=== PATIENT | female | born 1995 | race Caucasian/White ===

== ENCOUNTER 2019-11-16 13:01 | Emergency (ER) | payer OTHER, SELFPAY ==
--- NOTE | 2019-11-16 13:12 | ED.URI ---
HPI - URI/Sore Throat General Chief Complaint: Upper Respiratory Infection Stated Complaint: cough fever vomiting Time Seen by Provider: 11/16/19 13:12 Source: patient and RN notes reviewed Mode of arrival: ambulatory Limitations: no limitations History of Present Illness MD elicited complaint: fever and cough Onset (ago): day(s) (4) Consistency: intermittent Severity: moderate Description of mucous: clear Able to tolerate fluids by mouth: Yes Exacerbating factors: nothing Relieving factors: nothing Associated symptoms: fever, chills, myalgias, rhinorrhea and vomiting Treatments prior to arrival: acetaminophen Related Data Home Medications Medication Instructions Recorded Confirmed No Home Medications 11/16/19 11/16/19 Allergies Allergy/AdvReac Type Severity Reaction Status Date / Time nitrofurantoin Allergy Severe Swelling Verified 04/17/19 07:02 NSAIDS (Non-Steroidal Allergy Severe PROLONGED/INCREASED Verified 04/17/19 07:02 Anti-Inflamma BLEEDING Review of Systems Constitutional: Constitutional: Reports as per HPI Eyes: Eyes: Reports no additional eye complaints ENT: Reports as per HPI Cardiovascular: Cardiovascular: Reports no additional cardiovascular complaints Gastrointestinal: Gastrointestinal: Reports no additional gastrointestinal complaints Musculoskeletal: Musculoskeletal: Reports no additional musculoskeletal complaints Hematologic/Lymphatic: Hematologic/Lymphatic: Reports no additional hematologic/lymphatic complaints Allergic/Immunologic: Allergic/Immunologic: Reports no additional allergic/immunologic complaints FORMERLY [facility], [facility] Past Medical History Medical History (Updated 11/16/19 @ 13:37 by Rafal Smith MD) Endometriosis Surgical History Surgical History (Updated 11/16/19 @ 13:17 by Rafal Smith MD) S/P laparoscopic procedure Social History Social History (Updated 11/16/19 @ 13:17 by Rafal Smith MD) Smoking status: Never smoker Alcohol intake: never Substance use: never Course Course Emergency Course: Discussed diagnosis of influenza with patient. Too late to treat as it is past 48 hours. Continue symptomatic care follow-up with primary care physician if not better in 1 week. Vital Signs Vital signs: Vital Signs Temperature 36.7 C 11/16/19 13:32 Pulse Rate 99 11/16/19 13:32 Respiratory Rate 22 H 11/16/19 13:32 Blood Pressure 135/77 11/16/19 13:32 Pulse Oximetry 97 11/16/19 13:32 Temperature 36.7 C 11/16/19 13:32 Pulse Rate 99 11/16/19 13:32 Respiratory Rate 22 H 11/16/19 13:42 Blood Pressure 135/77 11/16/19 13:32 Pulse Oximetry 97 11/16/19 13:32 MDM - URI/Sore Throat Lab Data Labs: Lab Results 11/16/19 Range/Units 13:12 Influenza Type A Ag Negative (Negative) Influenza Type B Ag Positive A (Negative) Discharge Plan Discharge Clinical Impression: Influenza Patient Disposition: Home, Self-Care Condition: Stable Instructions: Influenza (ED) Additional Instructions: Follow up with primary care physician if not better and 7 days. Tylenol Motrin as needed for fever. [id number] cough and cold medicine as needed. Prescriptions: No Action No Home Medications RF: 0 Interventions: Discharge Disposition Last Done: 11/16/19 13:42 Follow-up/Referrals: Margie Alford MD [Primary Care Provider] - Time of Disposition: 13:37 Discharge Date/Time: 11/16/19 13:42
[2019-11-16 13:32] VITALS: BP 135/77; PULSE 99; RESP 22; TEMP 36.7; O2SAT 97
[2019-11-16 13:33] LABS: Influenza Control Valid (Valid)
[2019-11-16 13:42] VITALS: RESP 22
== END 2019-11-16 13:42 | disposition home or self-care (01) ==
PROVIDERS: Emergency Provider Emergency Medicine; PCP Family Medicine
DX: J11.1 Influenza due to unidentified influenza virus with other respiratory manifestations (principal)
CPT/HCPCS: 87804; 99282; 99283

== ENCOUNTER 2020-04-01 18:02 | Outpatient (CLI) | payer OTHER, SELFPAY ==
--- NOTE | ~2020-04-01 | US_ITS ---
EXAMINATION: US OB <= 14 weeks fetus DATE: 04/01/2020 18:37 INDICATION: Spotting. Threatened . TECHNIQUE: Real-time pelvic ultrasound utilizing both a transvaginal and transabdominal probe was pe rformed. The interpreting radiologist was not present for the study. COMPARISON: None. FINDINGS: The uterus measures 9.9 x 6.3 x 7.9 cm. There is an intrauterine gestational sac. A yolk sac and fet al pole are identified. The crown rump length measures 2.7 cm, which correlates with an estimated ges tational age of 9 weeks and 4 days. heart motion is identified measuring 165 beats per minute ( bpm) by M-mode Doppler. 2.8 x 1.2 x 2.5 cm hypoechoic likely subchorionic hematoma along the anterior margin of the gestational sac. The right ovary measures 2.7 x 1.7 x 1.8 cm. The left ovary measures 2.4 x 1.5 x 1.9 cm. Vascular antonio w is identified at both ovaries on color Doppler. There is no free fluid in the pelvis. IMPRESSION: 1. Single living fetus with heart rate of 165 bpm. 2. Gestational age by ultrasound of 9 weeks 4 day(s) +/- 6 day(s) with ultrasound estimated date of delivery (ANNI) of 10/31/2020. 3. 2.4 x 1.5 x 1.9 cm hypoechoic likely subchorionic hematoma. Reviewed, dictated and finalized at location A. IMPRESSION: 1. Single living fetus with heart rate of 165 bpm. 2. Gestational age by ultrasound of 9 weeks 4 day(s) +/- 6 day(s) with ultraso und estimated date of delivery (ANIN) of 10/31/2020. 3. 2.4 x 1.5 x 1.9 cm hypoechoic likely subchorionic hematoma.
== END 2020-04-01 18:03 | disposition home or self-care (01) ==
PROVIDERS: PCP Family Medicine; Visit Provider Obstetrics & Gynecology
DX: O46.90 Antepartum hemorrhage, unspecified, unspecified trimester (principal); Z3A.09 9 weeks gestation of pregnancy
CPT/HCPCS: 76801

== ENCOUNTER 2020-04-12 21:11 | Emergency (ER) | payer OTHER, SELFPAY ==
[2020-04-12 21:15] VITALS: BP 118/70; PULSE 86; RESP 16; TEMP 36.8; O2SAT 99
--- NOTE | 2020-04-12 21:34 | ED.GENADULT ---
HPI - General Adult General Chief complaint: Vaginal Bleeding Stated complaint: and bleeding History of Present Illness HPI narrative: Petty is a 25F with a PMH of endometriosis that presentes to the ED with vaginal bleeding. She is a (SAB at 8 and 9 weeks, son born at term) that is currently 11 weeks . She has a small amount of vaginal bleeding and was told to come in by her OB as she has a chronic hematoma. She reports minimal pain and other symptoms. Related Data Home Medications Medication Instructions Recorded Confirmed progesterone micronized 100 mg PO QAM 04/12/20 04/12/20 Allergies Allergy/AdvReac Type Severity Reaction Status Date / Time nitrofurantoin Allergy Severe Swelling Verified 04/17/19 07:02 NSAIDS (Non-Steroidal Allergy Severe PROLONGED/INCREASED Verified 04/17/19 07:02 Anti-Inflamma BLEEDING Review of Systems Constitutional: Constitutional: Reports no additional constitutional complaints Eyes: Eyes: Reports no additional eye complaints ENT: Reports system reviewed and no additional complaints, except as documented Cardiovascular: Cardiovascular: Reports no additional cardiovascular complaints Respiratory: Respiratory: Reports no additional respiratory complaints Gastrointestinal: Gastrointestinal: Reports no additional gastrointestinal complaints Genitourinary: Genitourinary: Reports as per HPI Musculoskeletal: Musculoskeletal: Reports no additional musculoskeletal complaints Integumentary/Breasts: Skin/Breast: Reports system reviewed and no additional complaints, except as docu Neurologic: Reports system reviewed and no additional complaints, except as documented Psychiatric: Psychiatric: Reports no additional psychiatric complaints Endocrine: Endocrine: Reports no additional endocrine complaints Hematologic/Lymphatic: Hematologic/Lymphatic: Reports no additional hematologic/lymphatic complaints Allergic/Immunologic: Allergic/Immunologic: Reports no additional allergic/immunologic complaints FORMERLY [facility] Past Medical History Medical History Endometriosis Surgical History Surgical History S/P laparoscopic procedure Social History Social History Smoking status: Never smoker Alcohol intake: never Substance use: never Exam Const: General: no acute distress and alert Orientation/consciousness: patient oriented x3 Limitations: No altered mental status HENMT: Head: normal to inspection Eyes: Conjunctivae: conjunctivae normal Pupils: Equal, round and reactive pupils present Neck: Neck: normal visual inspection Resp: Effort & Inspection: normal respiratory effort, not labored and no use of accessory muscles Cardio: Rate: regular rate GI: GI Palp: Yes Soft to palpation, No Tenderness to palpation present (GI) and No Guarding due to palpation present (GI) : Other: NOrmal external genitalia without lesions, normal vaginal discharge, cervical os appeared closed, no bleeding or tissue seen Back/Spine/Pelvis: Back: no CVA tenderness Skin: General skin exam: normal color Rashes: no rashes Neuro: General: patient oriented x3 and moves all extremities Extrem: General: normal to inspection Psych: Mental Status: mental status grossly normal Course Course Emergency Course: Petty was seen and evaluated. Ordered labs as below. I called Dr. Pichardo who recommended having her follow up in his clinic on Tuesday. She has the contact information and agreed to make an appointment. She was educated on threatened and discharged to follow up with Dr. Pichardo, her OB on Tuesday. Vital Signs Vital signs: Vital Signs Temperature 36.8 C 04/12/20 21:15 Pulse Rate 86 04/12/20 21:15 Respiratory Rate 16 04/12/20 21:15 Blood Pressure 118/70 04/12/20 21:15 Pulse O
--- NOTE | 2020-04-12 21:48 | PC.NURSE ---
LOGGER ALL ROUND AND ERP AT BEDSIDE FOR PELVIC EXAM
[2020-04-12 21:55] LABS: Basophils Absolute Auto 0.01 K/mm3 (0.00-0.10); Basophils Percent Auto 0.2 % (0.0-1.0); Eosinophils Absolute Auto 0.11 K/mm3 (0.02-0.50); Eosinophils Percent Auto 1.7 % (1.0-6.0); Hematocrit 28.5 % (35.0-49.0); Hemoglobin 10.2 g/dL (12.0-15.0); Immature Granulocyte Absolute 0.02 K/mm3 (0.00-0.00); Immature Granulocyte Percent A 0.3 % (0.0-0.0); Lymphocytes Absolute Auto 1.52 K/mm3 (1.10-4.50); Lymphocytes Percent Auto 24.2 % (18.0-42.0); Mean Corpuscular HGB Conc 35.8 g/dL (32.0-36.0); Mean Corpuscular Hemoglobin 33.7 pg (27.0-31.0); Mean Corpuscular Volume 94.1 fL (78.0-102.0); Mean Platelet Volume 9.4 fl (9.2-11.8); Monocytes Absolute Auto 0.48 K/mm3 (0.10-0.90); Monocytes Percent Auto 7.6 % (2.0-11.0); Neutrophils Absolute Auto 4.2 K/mm3 (1.7-7.2); Platelet Count Result 187 K/mm3 (150-420); Red Blood Count 3.03 M/mm3 (4.20-5.40); Red Cell Distribution Width 11.8 % (11.6-14.4); White Blood Count 6.3 K/mm3 (4.8-10.8)
--- NOTE | 2020-04-12 21:56 | PC.NURSE ---
PATIENT REFUSES EXAM AT THIS TIME - CALL PLACED TO DR VALDES STICKER MACHINE OPERATOR
--- NOTE | 2020-04-12 22:22 | PC.NURSE ---
PELVIC EXAM PERFORMED BY THIS RN AND ERP - PT TOLERATES WELL
[2020-04-12 22:34] LABS: Add Urine Microscopic? YES; Appearance Urine Cloudy (Clear); Bilirubin Urine Negative (Negative); Blood Urine Negative (Negative); Color Urine Straw (Yellow); Glucose Urine UA Negative (Negative); Ketones Urine Negative (Negative); Leukocyte Esterase Ur Negative LEU/UL (Negative); Nitrate Urine Negative (Negative); Protein Urine Negative (Negative); Specific Grav Ur 1.015 (1.010-1.020); Urobilinogen Urine 0.2 mg/dL (0.2-1.0); pH Urine 7.5 (5.0-8.0)
[2020-04-12 22:37] LABS: Alanine Aminotransferase 16 U/L (14-59); Albumin Level 3.5 g/dL (3.4-5.0); Alkaline Phosphatase 38 U/L (46-116); Anion Gap 12.6 mmol/L (7-16); Aspartate Amino Transferase 14 U/L (15-37); Bilirubin,Total 0.2 mg/dL (0.00-1.00); Blood Urea Nitrogen 9 mg/dL (7-18); Calcium 8.6 mg/dL (8.5-10.1); Carbon Dioxide 26 mmol/L (21-32); Chloride 101 mmol/L (98-108); Estimated Glomerular Filt Rate > 60; Glucose 87 mg/dL (70-99); Osmolality Calculated 279 mOsm/kg (285-295); Potassium 3.6 mmol/L (3.5-5.1); Sodium 136 mmol/L (136-145); Total Protein 6.8 g/dL (6.4-8.2)
[2020-04-12 22:41] LABS: Amorphous Sediment Urine Moderate; RBC Urine None seen /hpf (0-2); Squamous Epithelial Cell Urine Few /hpf (Few); WBC Urine None seen /hpf (0-3)
[2020-04-12 22:42] LABS: Bacteria Urine Trace /hpf; Mucus Urine None seen /lpf
[2020-04-12 22:43] LABS: Trichomonas Negative (Negative); Trichomonas Source Vaginal (Female)
[2020-04-12 22:52] VITALS: PULSE 87; RESP 21; O2SAT 98
== END 2020-04-12 22:54 | disposition home or self-care (01) ==
PROVIDERS: Emergency Provider Family Medicine; PCP Family Medicine
DX: O20.0 Threatened abortion (principal)
CPT/HCPCS: 36415; 80053; 81001; 84702; 85025; 85610; 86850; 86900; 86901; 87210; 87491; 87591; 99283; 99284

== ENCOUNTER 2020-08-02 11:51 | Observation (INO) | payer OTHER, MEDICAID, SELFPAY ==
[2020-08-02] VITALS (11 sets, daily range): BP systolic 96–107; BP diastolic 47–71; PULSE 73–93; TEMP 36.4; BMI 22.9
--- NOTE | 2020-08-02 13:30 | OBADM ---
This patient, Petty Soriano, admitted to the OB room 116 at 1151 for observation for lower abdominal cramping. Patient/family oriented to hospital policies and general routines including ID bracelet, bed and alarms, visiting hours, pain management, procedures, bathroom and other care routines, personal items, smoking policy, room service/diet, and visiting hours. Patient/Family are encouraged to report perceived risks to care and to ask questions if they do not understand what they are told or what they should do.
[2020-08-02 14:21] LABS: Add Urine Microscopic? YES; Appearance Urine Clear (Clear); Bacteria Urine Trace /hpf; Bilirubin Urine Negative (Negative); Blood Urine Negative (Negative); Color Urine Yellow (Yellow); Glucose Urine UA Negative (Negative); Ketones Urine Negative (Negative); Leukocyte Esterase Ur 2+ LEU/UL (Negative); Mucus Urine Rare /lpf; Nitrate Urine Negative (Negative); Protein Urine Negative (Negative); RBC Urine 0-2 /hpf (0-2); Specific Grav Ur 1.016 (1.001-1.035); Squamous Epithelial Cell Urine Few /hpf (Few); Urobilinogen Urine Negative mg/dL (<2.0)
[2020-08-02] MEDS: ONDANSETRON HCL ODT 4 MG TABLET PO (14:51)
[2020-08-02] MEDS: cefTRIAXone 1 GM VIAL IM (15:04)
[2020-08-02 15:38] LABS: Fetal Fibronectin Negative
--- NOTE | 2020-08-02 16:20 | PC.NURSE ---
Dr. Pichardo informed FFN is negative. Informed pt has marked 6 cramps in the last 50 mins and still rates them as a 4 out of 10. Discussed how it will take awhile for the antibiotic to help her bladder infection and help her feel better. Order received to give 1 dose of Procardia XL to help with the cramping. May discharge to home if cramping lessens. Pt to return if any worsening of symptoms.
[2020-08-02] MEDS: NIFEdipine 30 MG TAB.ER.24 PO (16:41)
--- NOTE | 2020-08-25 21:09 | PM.OBTRLD ---
OB - Triage/Final Diagnosis Evaluation Laboratory results: Laboratory Tests 08/02/20 08/02/20 13:51 15:03 Urine Color Yellow Urine Appearance Clear Urine pH 6.0 Ur Specific [place] 1.016 Urine Protein Negative Urine Glucose (UA) Negative Urine Ketones Negative Ur Blood (Man) Negative Urine Nitrate Negative Urine Bilirubin Negative Urine Urobilinogen Negative Leukocyte Esterase Rfl 2+ H Urine RBC 0-2 Urine WBC 10-15 H Ur Squamous Epith Cells Few Urine Bacteria Trace Urine Mucus Rare Fibronectin Negative Final Diagnosis (1) False labor: Code(s): O47.9 - False labor, unspecified Status: Acute
== END 2020-08-02 17:50 | disposition home or self-care (01) ==
PROVIDERS: Admitting Provider Obstetrics & Gynecology; PCP Family Medicine; Visit Provider Obstetrics & Gynecology
DX: O47.9 False labor, unspecified (principal); Z3A.00 Weeks of gestation of pregnancy not specified
CPT/HCPCS: 81001; 82731; 87086; 96372; A9270; G0378; G0379; J0696

== ENCOUNTER 2020-08-13 16:31 | Outpatient (CLI) | payer OTHER, MEDICAID, SELFPAY ==
[2020-08-13] VITALS (12 sets, daily range): BP systolic 94–105; BP diastolic 49–70; PULSE 75–85
[2020-08-13 17:31] LABS: Basophils Percent Auto 0.2 % (0.2-1.2); Eosinophils Percent Auto 0.6 % (0-4.4); Hematocrit 26.1 % (37.0-47.0); Hemoglobin 8.9 g/dL (12.0-15.0); Immature Granulocyte Absolute 0.05 K/mm3 (0.00-0.031); Immature Granulocyte Percent A 0.8 % (0-0.5); Lymphocytes Absolute Auto 1.13 K/mm3 (0.9-3.2); Lymphocytes Percent Auto 17.2 % (18.3-44.2); Mean Corpuscular HGB Conc 34.1 g/dl (32-36); Mean Corpuscular Hemoglobin 33.2 pg (26-34); Mean Corpuscular Volume 97.4 fl (80-100); Mean Platelet Volume 9.1 fl (7.4-10.4); Monocytes Absolute Auto 0.4 K/mm3 (0.1-0.6); Monocytes Percent Auto 6.6 % (2.6-8.5); Neutrophils Absolute Auto 4.9 K/mm3 (1.3-6.7); Neutrophils Percent Auto 74.6 % (45.5-73.1); Platelet Count Result 183 k/mm3 (150-375); Red Blood Count 2.68 M/mm3 (4.2-5.4); Red Cell Distribution Width 11.9 % (11.5-14.5); White Blood Count 6.6 K/mm3 (4.5-10.0)
[2020-08-13 17:35] LABS: Add Urine Microscopic? YES; Appearance Urine Clear (Clear); Bacteria Urine Trace /hpf; Bilirubin Urine Negative (Negative); Blood Urine Negative (Negative); Color Urine Straw (Yellow); Glucose Urine UA Negative (Negative); Ketones Urine Negative (Negative); Leukocyte Esterase Ur 2+ LEU/UL (Negative); Mucus Urine Rare /lpf; Nitrate Urine Negative (Negative); Protein Urine Negative (Negative); RBC Urine 0-2 /hpf (0-2); Specific Grav Ur 1.008 (1.001-1.035); Squamous Epithelial Cell Urine Occasional /hpf (Few); Urobilinogen Urine Negative mg/dL (<2.0); WBC Urine 0-3 /hpf
[2020-08-13 17:39] LABS: Creatinine Urine 27.8 mg/dL; Total Protein Urine Random 15 mg/dL
[2020-08-13 17:42] LABS: Alanine Aminotransferase 10 U/L (4-35); Albumin Level 3.5 g/dL (3.5-5.1); Alkaline Phosphatase 55 U/L (38-126); Anion Gap 4 mmol/L (8-16); Aspartate Amino Transferase 20 U/L (14-36); Bilirubin,Total 0.3 mg/dL (0.2-1.3); Blood Urea Nitrogen 6 mg/dL (7-17); Calcium 8.8 mg/dL (8.4-10.2); Carbon Dioxide 27 mmol/L (22-30); Chloride 105 mmol/L (98-107); Estimated Glomerular Filt Rate > 60; Glucose 79 mg/dL (65-105); Potassium 3.3 mmol/L (3.4-5.0); Sodium 136 mmol/L (137-145); Uric Acid 2.7 mg/dL (2.5-7.5)
--- NOTE | 2020-08-13 18:45 | PC.NURSE ---
Dr. Pichardo on unit and informed of 10 beat accels on NST at 28 + wks, BP's, and lab results including Hgb, K, and Total protein/ creatinine ratio. Order received for PO KCL and to have pt increase Slow Fe at home to BID.
[2020-08-13] MEDS: POTASSIUM CHLORIDE 20 MEQ TABLET PO (19:06)
== END 2020-08-13 19:07 | disposition home or self-care (01) ==
LOC: ANHOBOP 16:42 → ANHOBPP 16:45
PROVIDERS: PCP Family Medicine; Visit Provider Obstetrics & Gynecology
DX: O13.9 Gestational [pregnancy-induced] hypertension without significant proteinuria, unspecified trimester (principal); H53.9 Unspecified visual disturbance; Z3A.00 Weeks of gestation of pregnancy not specified
CPT/HCPCS: 36415; 59025; 80053; 81001; 82570; 84156; 84550; 85025; 99199; A9270

== ENCOUNTER 2020-08-20 20:40 | Observation (INO) | payer OTHER, SELFPAY ==
[2020-08-20 21:55] VITALS: BP 112/67; PULSE 83
[2020-08-20 22:02] VITALS: TEMP 36.6
[2020-08-20 22:28] LABS: Add Urine Microscopic? YES; Appearance Urine Cloudy (Clear); Bacteria Urine Trace /hpf; Bilirubin Urine Negative (Negative); Blood Urine Negative (Negative); Color Urine Yellow (Yellow); Glucose Urine UA Negative (Negative); Ketones Urine 2+ mg/dL (Negative); Leukocyte Esterase Ur 1+ LEU/UL (Negative); Mucus Urine Heavy /lpf; Nitrate Urine Negative (Negative); Protein Urine 1+ mg/dL (Negative); RBC Urine 0-2 /hpf (0-2); Specific Grav Ur 1.025 (1.001-1.035); Squamous Epithelial Cell Urine Many /hpf (Few); Urobilinogen Urine Negative mg/dL (<2.0)
[2020-08-20 23:18] VITALS: BP 110/65; PULSE 92
--- NOTE | 2020-08-20 23:38 | LDADM ---
This patient, Petty Soriano, was admitted to OB Post 116 on 08/20/20 at 20:40. Plans for labor, pain management and were discussed with patient. Patient/family oriented to hospital policies and general routines including ID bracelet, bed and alarms, visiting hours, pain management, procedures, bathroom and other care routines, personal items, smoking policy, room service/diet and guest tray routines, infant security routines, and visiting hours. Patient/Family are encouraged to report perceived risks to care and to ask questions if they do not understand what they are told or what they should do. See OBIX for further documentation.
[2020-08-20 23:47] VITALS: PULSE 84; RESP 16; BMI 23.3
--- NOTE | 2020-09-18 19:46 | PM.OBTRLD ---
OB - Triage/Final Diagnosis Evaluation Laboratory results: Laboratory Tests 08/20/20 22:14 Urine Color Yellow Urine Appearance Cloudy H Urine pH 6.0 Ur Specific [place] 1.025 Urine Protein 1+ H Urine Glucose (UA) Negative Urine Ketones 2+ H Ur Blood (Man) Negative Urine Nitrate Negative Urine Bilirubin Negative Urine Urobilinogen Negative Leukocyte Esterase Rfl 1+ H Urine RBC 0-2 Urine WBC 4-6 H Ur Squamous Epith Cells Many H Urine Bacteria Trace Urine Mucus Heavy H Final Diagnosis (1) False labor: Code(s): O47.9 - False labor, unspecified Status: Acute
== END 2020-08-21 00:25 | disposition home or self-care (01) ==
PROVIDERS: Admitting Provider Obstetrics & Gynecology; PCP Family Medicine; Visit Provider Obstetrics & Gynecology
DX: O47.03 False labor before 37 completed weeks of gestation, third trimester (principal); Z3A.29 29 weeks gestation of pregnancy
CPT/HCPCS: 81001; 84112; G0378; G0379

== ENCOUNTER 2020-09-23 18:35 | Observation (INO) | payer OTHER, MEDICAID, SELFPAY ==
[2020-09-23 18:45] VITALS: BP 109/64; PULSE 83
[2020-09-23 18:46] VITALS: TEMP 36.6
--- NOTE | 2020-09-23 18:50 | PC.NURSE ---
Pt states she has had low abdomen cramping and cramping across upper abdomen past 2 days. Has been working on baby [employer]. Pt states she may have lost mucos plug Had a thick discharge. Denies watery discharge and denies feeling like water is broken.
[2020-09-23 19:00] VITALS: BP 99/58; PULSE 88
[2020-09-23 19:09] LABS: Add Urine Microscopic? YES; Amorphous Sediment Urine Few; Appearance Urine Cloudy (Clear); Bacteria Urine Trace /hpf; Bilirubin Urine Negative (Negative); Blood Urine Negative (Negative); Color Urine Yellow (Yellow); Glucose Urine UA Negative (Negative); Ketones Urine Negative (Negative); Leukocyte Esterase Ur 1+ LEU/UL (NEGATIVE); Mucus Urine Rare /lpf; Nitrate Urine Negative (Negative); Protein Urine Negative (Negative); RBC Urine 0-2 /hpf (0-2); Specific Grav Ur 1.018 (1.001-1.035); Squamous Epithelial Cell Urine Few /hpf (Few); Urobilinogen Urine Negative mg/dL (<2.0)
[2020-09-23 19:15] VITALS: BP 94/58; PULSE 83
--- NOTE | 2020-09-23 19:50 | PC.NURSE ---
Dr. Becerra notified of UA results. Orders received. Pt states she has appt. tomorrow in office. Pt denies any pain at this time and states she feels baby has moved and it improved pain in upper abdomen that she was having.
[2020-09-23 20:09] VITALS: BMI 23.8
--- NOTE | 2020-09-23 20:12 | OBADM ---
This patient, Petty Soriano, admitted to the OB room OB Post 117 for observation. Patient/family oriented to hospital policies and general routines including ID bracelet, bed and alarms, visiting hours, pain management, procedures, bathroom and other care routines, personal items, smoking policy, room service/diet, and visiting hours. Patient/Family are encouraged to report perceived risks to care and to ask questions if they do not understand what they are told or what they should do.
[2020-09-23] MEDS: CEPHALEXIN 500 MG CAPSULE PO (20:35)
--- NOTE | 2020-09-26 07:47 | PM.OBTRLD ---
OB - Triage/Final Diagnosis Evaluation Laboratory results: Laboratory Tests 09/23/20 18:55 Urine Color Yellow Urine Appearance Cloudy H Urine pH 7.0 Ur Specific [place] 1.018 Urine Protein Negative Urine Glucose (UA) Negative Urine Ketones Negative Ur Blood (Man) Negative Urine Nitrate Negative Urine Bilirubin Negative Urine Urobilinogen Negative Ur Leukocyte Esterase 1+ H Urine RBC 0-2 Urine WBC 4-6 H Ur Squamous Epith Cells Few Amorphous Sediment Few H Urine Bacteria Trace Urine Mucus Rare Final Diagnosis (1) Cramping affecting , antepartum: Code(s): O26.899 - Other specified related conditions, unspecified trimester; R10.9 - Unspecified abdominal pain Status: Acute
== END 2020-09-23 20:45 | disposition home or self-care (01) ==
PROVIDERS: Admitting Provider Obstetrics & Gynecology; PCP Family Medicine; Visit Provider Obstetrics & Gynecology
DX: O26.899 Other specified pregnancy related conditions, unspecified trimester (principal); R10.9 Unspecified abdominal pain; Z3A.00 Weeks of gestation of pregnancy not specified
CPT/HCPCS: 81001; 87086; A9270; G0378; G0379

== ENCOUNTER 2020-10-14 13:25 | Observation (INO) | payer OTHER, MEDICAID, SELFPAY ==
[2020-10-14 13:59] VITALS: BMI 24.5
--- NOTE | 2020-10-14 13:59 | OBADM ---
This patient, Petty Soriano, admitted to the OB room 116 at 1325 for observation for vaginal spotting. Patient/family oriented to hospital policies and general routines including ID bracelet, bed and alarms, visiting hours, pain management, procedures, bathroom and other care routines, personal items, smoking policy, room service/diet, and visiting hours. Patient/Family are encouraged to report perceived risks to care and to ask questions if they do not understand what they are told or what they should do.
[2020-10-14 14:00] VITALS: BP 108/63; PULSE 80
[2020-10-14 14:01] VITALS: TEMP 36.5
--- NOTE | 2020-10-14 14:08 | PC.NURSE ---
Brooke Wade CNM informed of pt's arrival with c/o dime sized dark red blood clot noted on toilet paper after returning home from office and having SVE done- her cervix in the office was 2 cm and 70 % per pt at 37 4/7 wks. Discussed scant pink tinge with mucous with wiping upon arrival, reactive NST, and no contractions at present. OK to discharge to home.
--- NOTE | 2020-10-27 08:20 | PM.OBTRLD ---
OB - Triage/Final Diagnosis Final Diagnosis (1) False labor: Code(s): O47.9 - False labor, unspecified Status: Acute
== END 2020-10-14 14:32 | disposition home or self-care (01) ==
PROVIDERS: Admitting Provider Obstetrics & Gynecology; PCP Family Medicine; Visit Provider Obstetrics & Gynecology
DX: O47.03 False labor before 37 completed weeks of gestation, third trimester (principal); Z3A.37 37 weeks gestation of pregnancy
CPT/HCPCS: G0378; G0379

== ENCOUNTER 2020-10-17 15:16 | Outpatient (RCR) | payer OTHER, MEDICAID, SELFPAY ==
[2020-10-10 13:30] VITALS: BP 110/63; PULSE 91
[2020-10-17 16:00] VITALS: BP 110/67; PULSE 92
== END 2020-10-27 10:27 | disposition home or self-care (01) ==
LOC: ANHOBOP 15:16
PROVIDERS: PCP Family Medicine; Visit Provider Obstetrics & Gynecology
DX: O36.5930 Maternal care for other known or suspected poor fetal growth, third trimester, not applicable or unspecified (principal); Z3A.37 37 weeks gestation of pregnancy; Z3A.38 38 weeks gestation of pregnancy
CPT/HCPCS: 59025; 84112

== ENCOUNTER 2020-10-24 09:25 | Inpatient (IN) | payer OTHER, MEDICAID, SELFPAY ==
[2020-10-24] VITALS (82 sets, daily range): BP systolic 84–140; BP diastolic 46–99; PULSE 70–114; TEMP 35.8–36.3; O2SAT 100; BMI 24.2
--- NOTE | 2020-10-24 10:15 | WPDANESEPP ---
Anes - Eval Pre Procedure Procedure: labor epidural Date/Time: 10/24/20 10:15 Surgeon: pamela Preop Diagnosis: pain during labor Pre Op Diagnosis: Leaking Patient Data Age: 25 Gender: F Height: Weight: Last Vital Signs Pulse 87 10/24/20 10:01 BP 113/79 10/24/20 10:01 Pulse Ox 100 10/24/20 10:08 Allergies Allergy/AdvReac Type Severity Reaction Status Date / Time bee venom protein (honey bee) Allergy Severe Swelling Verified 10/22/20 15:08 hornet venom Allergy Severe Swelling Verified 10/22/20 15:08 nitrofurantoin Allergy Severe Swelling Verified 10/10/20 13:07 NSAIDS (Non-Steroidal AdvReac Severe PROLONGED/INCREASED Verified 10/10/20 13:07 Anti-Inflamma BLEEDING Home Medications Medication Instructions Recorded Confirmed Type Classic 1 tablet PO DAILY 08/02/20 10/22/20 History Slow Fe 142 mg PO BID 08/02/20 10/22/20 History Patient hx anesthesia problems: none Family hx anesthesia problems: none PMFSH Past Medical History Medical History (Updated 10/24/20 @ 10:16 by Maury Adames CRNA) Endometriosis Surgical History Surgical History S/P laparoscopic procedure Family History Family History Father Cleft palate Social History Social History Smoking status: Never smoker Alcohol intake: never Substance use: never Gender identity (if verbalized by the patient): Female Spiritual care concerns: No Exam Day of Procedure 10/24/20 10:15 Patient weight: normal Heart: regular rate and rhythm Lungs: clear to auscultation and normal air movement Neurological: alert and oriented
--- NOTE | 2020-10-24 10:18 | LDADM ---
This patient, Petty Soriano, was admitted to Labor/Delivery/Recovery 110 on 10/24/20 at 09:25. Plans for labor, pain management and were discussed with patient. Patient/family oriented to hospital policies and general routines including ID bracelet, bed and alarms, visiting hours, pain management, procedures, bathroom and other care routines, personal items, smoking policy, room service/diet and guest tray routines, infant security routines, and visiting hours. Patient/Family are encouraged to report perceived risks to care and to ask questions if they do not understand what they are told or what they should do. See OBIX for further documentation.
[2020-10-24 10:27] LABS: Basophils Percent Auto 0.3 % (0.2-1.2); Eosinophils Absolute Auto 0.1 K/mm3 (0-0.3); Hematocrit 29.1 % (37.0-47.0); Immature Granulocyte Absolute 0.07 K/mm3 (0.00-0.031); Immature Granulocyte Percent A 0.9 % (0-0.5); Lymphocytes Absolute Auto 1.68 K/mm3 (0.9-3.2); Lymphocytes Percent Auto 21.2 % (18.3-44.2); Mean Corpuscular HGB Conc 34.4 g/dl (32-36); Mean Corpuscular Hemoglobin 33.3 pg (26-34); Mean Platelet Volume 9.8 fl (7.4-10.4); Monocytes Absolute Auto 0.7 K/mm3 (0.1-0.6); Monocytes Percent Auto 8.8 % (2.6-8.5); Neutrophils Absolute Auto 5.4 K/mm3 (1.3-6.7); Neutrophils Percent Auto 67.8 % (45.5-73.1); Platelet Count Result 191 k/mm3 (150-375); Red Cell Distribution Width 11.9 % (11.5-14.5); White Blood Count 7.9 K/mm3 (4.5-10.0)
[2020-10-24] MEDS: OXYTOCIN 30 UNITS/NS 500 ML 30 UNITS/500 ML BAG IV CONT (11:00)
[2020-10-24] MEDS: LACTATED RINGERS 1,000 ML 125 ML IV CONT ×2 (11:46→18:31)
--- NOTE | 2020-10-24 12:12 | WPDOBADMIT ---
Obstetrics - Admit Note Admission Note: record reviewed. No pertinent additions to the history and/or any subsequent changes in the physical findings that are not consistent with the expected course of the were found. Pt arrived SROM clear fluid, SVE by RN /-2, anticpate vaginal delivery Additions to the history and/or subsequent changes in the physical findings follow. None.
[2020-10-24] MEDS: fentaNYL CITRATE INJ (*CRX) 100 MCG/2 ML VIAL 50 MCG IV PUSH (17:31)
[2020-10-24] MEDS: fentaNYL CITRATE INJ (*CRX) 100 MCG/2 ML VIAL IV PUSH (18:31)
--- NOTE | 2020-10-24 22:07 | PM.OBPRVD ---
OB - Delivery Note Procedure Delivery date: 10/24/20 Procedure: Intrapartal events: None Induction method: none Delivery monitor: external FHT and external uterine Route of delivery: Episiotomy description: None Laceration Description: None Quantitative Blood Loss (ml): 104 Anesthesia type: Epidural [place] Baby Date of : 10/24/20 Time of : 21:42 Weeks of gestation at delivery: 38 Weight (pounds): 6 Weight (ounces): 11 presentation: vertex position: Left Occiput Anterior cord vessel description: 3 Vessels and Delayed Cord Clamping score one minute: 8 score five minutes: 9 Narrative: Cord gasses collected and handed off to staff.
[2020-10-24] MEDS: OXYTOCIN 30 UNITS/NS 500 ML 30 UNITS/500 ML BAG 125 UNITS IV CONT (22:18)
[2020-10-25 00:01] VITALS: BP 119/66; PULSE 92
[2020-10-25 00:16] VITALS: BP 114/78; PULSE 93
[2020-10-25 00:35] VITALS: BP 100/68; PULSE 78; RESP 16; TEMP 36.6; O2SAT 98
--- NOTE | 2020-10-25 00:35 | OBPPTRN ---
Patient transferred to post room #286 via wheelchair. Support person present. Oriented to unit, room, information board, rooming in, admission packet and security measures. Patient verbalizes understanding.
[2020-10-25] MEDS: ACETAMINOPHEN 325 MG TABLET 650 MG PO ×3 (01:33→14:45)
[2020-10-25 04:56] LABS: Hemoglobin 8.8 g/dL (12.0-15.0)
--- NOTE | 2020-10-25 07:26 | WPDANLDPN2 ---
Anes-Prog Note L&D Date/Time: 10/25/20 07:26 Comfortable throughout: labor and delivery Neuraxial method: epidural Epidural/Spinal procedure site: clean & non-tender Neuro status: Neuro function grossly intact. Cardiovascular status: normal Respiratory status: normal Airway patency: baseline Mental status: baseline Post-Op hydration status: normal Vital Signs: Last Vital Signs Temp 36.6 C 10/25/20 00:35 Pulse 78 10/25/20 00:35 Resp 16 10/25/20 00:35 BP 100/68 10/25/20 00:35 Pulse Ox 98 10/25/20 00:35 Pain score (VAS): 2 I/O: Intake & Output 10/24/20 10/24/20 10/25/20 15:59 23:59 07:59 Intake Total 1900 500 Output Total 75 Balance 1900 425 Post-procedural complaints: none Patient feedback: Patient satisfied with anesthetic care.
[2020-10-25] MEDS: POLYSACCHARIDE IRON COMPLEX 150 MG CAPSULE PO ×2 (07:36→16:31)
[2020-10-25] MEDS: DOCUSATE SODIUM 100 MG CAPSULE PO ×2 (07:36→16:31)
[2020-10-25] MEDS: MULTIVIT/MIN/PREN/FOL AC/IRON TABLET 1 TAB PO (07:36)
[2020-10-25 08:15] VITALS: BP 93/55; PULSE 72; RESP 16; TEMP 36.7
--- NOTE | 2020-10-25 08:31 | P.PNOB_ITS ---
OB - PN: Subj Subjective Date/time seen: 10/25/20 08:31 Patient comments: no complaints baby status: doing well OB - PN: Obj Data Labs CBC & Chem 7: 10/25/20 04:19 Labs: Laboratory Results - last 24 hr 10/24/20 10/24/20 10/25/20 10:10 10:10 04:19 WBC 7.9 RBC 3.00 L Hgb 10.0 L 8.8 L Hct 29.1 L 25.0 L MCV 97.0 MCH 33.3 MCHC 34.4 RDW 11.9 Plt Count 191 MPV 9.8 Immature Gran % (Auto) 0.9 H Neut % (Auto) 67.8 Lymph % (Auto) 21.2 [place] % (Auto) 8.8 H Eos % (Auto) 1.0 Baso % (Auto) 0.3 Lymph # (Auto) 1.68 [place] # (Auto) 0.7 H Eos # (Auto) 0.1 Baso # (Auto) 0.0 Abs Immat Gran (auto) 0.07 H Absolute Neuts (auto) 5.4 Absolute Nucleated RBC 0.0 Nucleated RBC % 0.0 Blood Type A Positive Antibody Screen Negative OB - PN A/P Plan day: 1 Plan: routine care Time Spent With Patient Time: Total time spent is greater than 50% in coordination of care (as doc umented) at patient's floor/unit and/or counseling patient: Time with patient: less than 15 minutes Review of Systems Review of Systems: All systems reviewed & are unremarkable except as noted in HPI and below Exam Narrative: Exam Narrative: Fundus firm and vaginal flow controlled. No lower ext redness, warmth, or edema. Negative homans. Const: General: comfortable Chest: Breast/axilla inspection: normal inspection of the breasts Resp: Effort & Inspection: normal respiratory effort Cardio: Rate: regular rate GI: GI Palp: Yes Soft to palpation Psych: Appearance: grossly normal Affect: normal affect Attitude: cooperative Thought content: Yes Normal thought content present Judgement: Good judgement present (Psych)
[2020-10-25 17:35] VITALS: BP 95/66; PULSE 87; RESP 18; O2SAT 98
[2020-10-25 18:02] LABS: Glucose Point of Care 107 (65-105)
[2020-10-25 19:55] VITALS: BP 99/55; PULSE 82; RESP 16; TEMP 36.4; O2SAT 98
[2020-10-26] MEDS: ACETAMINOPHEN 325 MG TABLET 650 MG PO ×2 (02:08→08:30)
[2020-10-26 02:20] VITALS: BP 102/63; PULSE 82; O2SAT 98
[2020-10-26 08:15] VITALS: BP 109/75; PULSE 74; RESP 18; TEMP 37; O2SAT 100
[2020-10-26] MEDS: MULTIVIT/MIN/PREN/FOL AC/IRON TABLET 1 TAB PO (08:30)
[2020-10-26] MEDS: POLYSACCHARIDE IRON COMPLEX 150 MG CAPSULE PO (08:30)
[2020-10-26] MEDS: DOCUSATE SODIUM 100 MG CAPSULE PO (08:30)
--- NOTE | 2020-10-26 10:51 | PM.OBPNVD ---
OB - PN: Subj Subjective Date/time seen: 10/26/20 10:51 Patient comments: no complaints baby status: doing well OB - PN: Obj Data Labs CBC & Chem 7: 10/25/20 04:19 Labs: Laboratory Results - last 24 hr 10/25/20 17:57 POC Capillary Glucose 107 OB - PN A/P Plan day: 2 Plan: routine care and discharge home (F/U in 4 weeks) Time Spent With Patient Time: Total time spent is greater than 50% in coordination of care (as documented) at patient's floor/unit and/or counseling patient: Time with patient: less than 15 minutes Review of Systems Review of Systems: All systems reviewed & are unremarkable except as noted in HPI and below Exam Narrative: Exam Narrative: Fundus firm and vaginal flow controlled. No lower ext redness, warmth, or edema. Negative homans. Const: General: comfortable Chest: Breast/axilla inspection: normal inspection of the breasts Resp: Effort & Inspection: normal respiratory effort Cardio: Rate: regular rate GI: GI Palp: Yes Soft to palpation Psych: Appearance: grossly normal Affect: normal affect Attitude: cooperative Thought content: Yes Normal thought content present Judgement: Good judgement present (Psych)
--- NOTE | 2020-10-26 10:54 | PM.OBDSVD ---
DS: Admitting Diagnosis Admitting Diagnosis Admitting Diagnosis: Labor OB - DS: Summary OB Procedures : None OB Procedures Intrapartum: Spontaneous Vag Delivery OB Procedures: : None Time Spent with Patient Time attestation: Total time spent providing and/or coordinating discharge services: DS: Data Data Completed and Pending Labs on day of discharge: Labs from last 24 hours 10/25/20 17:57 POC Capillary Glucose 107 Discharge Plan Discharge Attending physician on discharge: Beth Wade Discharging Clinician: Beth Wade Patient Disposition: Hospice - Home Activity: pelvic rest Diet: as tolerated Patient Instructions: How to Stop Smoking (DC) Stand Alone Forms: General Discharge Information Discharge Medications: Continued Slow Fe 142 mg (45 mg iron) Tablet Extended Release 142 mg PO BID RF: 0 Classic 28 mg iron- 800 mcg Tablet 1 tablet PO DAILY RF: 0 Date of admission: 10/24/20 09:25 Primary Care Provider: Margie Alford Admitting Provider: Lubna Pichardo Attending physician on admission: Lubna Pichardo Condition: Stable
--- NOTE | 2020-10-26 11:30 | PC.NURSE ---
Patient viewed the discharge video Mother & Baby Care, The First Two Weeks . Patient was given the opportunity and encouraged to ask questions. Patient verbalized understanding of information shared and has been given the mother/baby guide for home reference.
[2020-10-27 07:10] LABS: Rapid Plasma Reagin Non-Reactive (NonReactive)
== END 2020-10-26 12:36 | disposition home or self-care (01) | DRG 807 ==
LOC: ANHLDR 19:44 → ANHOB2 10-25 00:55
PROVIDERS: Advanced Practice Midwife; Admitting Provider Obstetrics & Gynecology; PCP Family Medicine; Visit Provider Obstetrics & Gynecology
DX: O80 Encounter for full-term uncomplicated delivery (principal); Z37.0 Single live birth; Z3A.38 38 weeks gestation of pregnancy
CPT/HCPCS: 36415; 84112; 85014; 85018; 85025; 86592; 86850; 86900; 86901; 88307; A9270; J2590; J2795; J3010; J7120

== ENCOUNTER 2020-11-16 02:50 | Emergency (ER) | payer OTHER, MEDICAID, SELFPAY ==
[2020-11-16 03:00] VITALS: BP 125/77; PULSE 97; RESP 18; TEMP 37.4; O2SAT 99
[2020-11-16 03:20] LABS: Add Urine Microscopic? YES; Bilirubin Urine 1+ (Negative); Blood Urine 3+ (Negative); Color Urine Yellow (Yellow); Glucose Urine UA Negative (Negative); Ketones Urine 1+ (Negative); Leukocyte Esterase Ur 1+ LEU/UL (Negative); Nitrate Urine Negative (Negative); Protein Urine Negative (Negative); Specific Grav Ur >= 1.030 (1.010-1.020); Urobilinogen Urine 0.2 mg/dL (0.2-1.0); pH Urine 5.5 (5.0-8.0)
[2020-11-16 03:25] LABS: Appearance Urine Cloudy (Clear); RBC Urine 21-50 /hpf (0-2); WBC Urine 51-75 /hpf (0-3)
[2020-11-16 03:26] LABS: Bacteria Urine 3+ /hpf; Mucus Urine Heavy /lpf; Squamous Epithelial Cell Urine Few /hpf (Few)
--- NOTE | 2020-11-16 03:34 | ED.FEMALEGU ---
HPI - Female Genitourinary General Chief complaint: Back Pain/Injury Stated complaint: Back Pain Source: patient and RN notes reviewed Mode of arrival: ambulatory Limitations: no limitations History of Present Illness HPI Narrative: 3 weeks post MD elicited complaint: back pain and flank pain Onset (ago): day(s) (1) Location of symptoms: flank Severity: moderate Female Urogenital Radiation: Suprapubic Quality of pain: cramping and dull Consistency: intermittent Vaginal bleeding: scant Urinary symptoms: Flank Pain Exacerbating factors: movement Relieving factors: none Associated symptoms: fever and chills Treatment prior to arrival: none Sexual activity: No Patient : No Related Data Allergies Allergy/AdvReac Type Severity Reaction Status Date / Time bee venom protein (honey bee) Allergy Severe Swelling Verified 10/22/20 15:08 hornet venom Allergy Severe Swelling Verified 10/22/20 15:08 nitrofurantoin Allergy Severe Swelling Verified 10/10/20 13:07 NSAIDS (Non-Steroidal AdvReac Severe PROLONGED/INCREASED Verified 10/10/20 13:07 Anti-Inflamma BLEEDING Review of Systems Review of Systems: All systems reviewed & are unremarkable except as noted in HPI and below PMFSH Past Medical History Medical History (Updated 11/16/20 @ 03:41 by Rafal Smith MD) Endometriosis Surgical History Surgical History S/P laparoscopic procedure Family History Family History Father Cleft palate Social History Social History Smoking status: Current some day smoker Tobacco type: cigarettes Alcohol intake: never Substance use: never Gender identity (if verbalized by the patient): Female Spiritual care concerns: No Exam Const: General: healthy appearing and no acute distress Nutritional Appearance: well nourished and thin Orientation/consciousness: patient oriented x3 Other: Female nurse in room during examination. HENMT: Head: normal to inspection Ears: external ears normal General nose exam: Normal external nose present Face and sinus: normal facial exam Mouth: Yes moist mucous membranes Eyes: Conjunctivae: conjunctivae normal Pupils: Equal, round and reactive pupils present EOM: EOMs intact bilaterally Neck: Neck: normal visual inspection Resp: Effort & Inspection: normal respiratory effort Auscultation: clear to auscultation bilaterally Cardio: Rate: regular rate Rhythm: regular rhythm GI: GI Palp: Yes Soft to palpation, Yes Tenderness to palpation present (GI), Yes Guarding due to palpation present (GI) (mild), No Rigid due to palpation and No Rebound tenderness present Auscultation: normal bowel sounds : General: Yes CVA tenderness bilateral Back/Spine/Pelvis: Cervical Spine: cervical ROM normal Thoracic/Lumbar Spine: thoraco-lumbar ROM normal Skin: General skin exam: normal color Rashes: no rashes Neuro: General: patient oriented x3, moves all extremities and no focal motor deficits Speech: normal speech Gait exam (Neuro): Normal gait present Extrem: General: normal to inspection and no clubbing, cyanosis or edema Psych: Mental Status: mental status grossly normal Affect: normal affect Attitude: cooperative Thought content: Yes Normal thought content present Course Vital Signs Vital signs: Vital Signs Temperature 37.4 C 11/16/20 03:00 Pulse Rate 97 11/16/20 03:00 Respiratory Rate 18 11/16/20 03:00 Blood Pressure 125/77 11/16/20 03:00 Pulse Oximetry 99 11/16/20 03:00 Temperature 37.1 C 11/16/20 03:44 Pulse Rate 85 11/16/20 03:44 Respiratory Rate 18 11/16/20 03:44 Blood Pressure 122/74 11/16/20 03:44 Pulse Oximetry 99 11/16/20 03:44 MDM - Female Genitourinary Lab Data Attestation: I reviewed the patient's lab results. Labs: Lab Results 11/16/20 Range/Units
[2020-11-16] MEDS: cefTRIAXone 1 GM VIAL IM (03:43)
[2020-11-16 03:44] VITALS: BP 122/74; PULSE 85; RESP 18; TEMP 37.1; O2SAT 99
== END 2020-11-16 03:50 | disposition home or self-care (01) ==
PROVIDERS: Emergency Provider Emergency Medicine; PCP Family Medicine
DX: N39.0 Urinary tract infection, site not specified (principal)
CPT/HCPCS: 81001; 87077; 87086; 87088; 96372; 99283; J0696

== ENCOUNTER → 2021-07-13 09:02 | Outpatient (CLI) | payer OTHER, MEDICAID, SELFPAY ==
--- NOTE | ~2021-07-13 | US_ITS ---
US breast LT complete INDICATION: Left breast pain TECHNIQUE: Dedicated complete left breast ultrasound COMPARISON: Ultrasound dated 10/19/2019 FINDINGS: The left breast is composed of normal heterogeneous echotexture without focal solid or cyst ic mass. IMPRESSION: 1: Normal left breast ultrasound. BI-RADS CATEGORY 1 - NEGATIVE Reviewed, dictated and finalized at location A.
== END ==
PROVIDERS: Visit Provider Advanced Practice Midwife
DX: N64.4 Mastodynia (principal)
CPT/HCPCS: 76641

== ENCOUNTER 2021-09-19 08:42 | Emergency (ER) | payer OTHER, MEDICAID, SELFPAY ==
[2021-09-19 08:50] VITALS: BP 114/74; PULSE 85; RESP 18; TEMP 36.4; O2SAT 99
[2021-09-19] MEDS: ONDANSETRON INJ 4 MG/2 ML VIAL IV PUSH (09:55)
[2021-09-19] MEDS: SODIUM CHLORIDE 0.9% IV 1,000 ML 999 ML IV CONT (09:55)
[2021-09-19 09:58] LABS: Basophils Absolute Auto 0.02 K/mm3 (0.00-0.10); Basophils Percent Auto 0.4 % (0.0-1.0); Eosinophils Absolute Auto 0.07 K/mm3 (0.02-0.50); Eosinophils Percent Auto 1.4 % (1.0-6.0); Hematocrit 34.3 % (35.0-49.0); Hemoglobin 11.6 g/dL (12.0-15.0); Immature Granulocyte Absolute 0.02 K/mm3 (0.00-0.00); Immature Granulocyte Percent A 0.4 % (0.0-0.0); Lymphocytes Absolute Auto 1.13 K/mm3 (1.10-4.50); Mean Corpuscular HGB Conc 33.8 g/dL (32.0-36.0); Mean Corpuscular Volume 91.7 fL (78.0-102.0); Mean Platelet Volume 9.6 fl (9.2-11.8); Monocytes Absolute Auto 0.34 K/mm3 (0.10-0.90); Monocytes Percent Auto 6.9 % (2.0-11.0); Neutrophils Absolute Auto 3.3 K/mm3 (1.7-7.2); Neutrophils Percent Auto 67.9 % (50.0-70.0); Platelet Count Result 191 K/mm3 (150-420); Red Blood Count 3.74 M/mm3 (4.20-5.40); Red Cell Distribution Width 11.6 % (11.6-14.4); White Blood Count 4.9 K/mm3 (4.8-10.8)
[2021-09-19 09:59] LABS: Appearance Urine Sl Cloudy (Clear); Bilirubin Urine 1+ (Negative); Color Urine Yellow (Yellow); Glucose Urine UA Negative (Negative); Ketones Urine 1+ (Negative); Leukocyte Esterase Ur Negative (Negative); Nitrate Urine Negative (Negative); Protein Urine Trace (Negative); Specific Grav Ur 1.025 (1.010-1.020); Urobilinogen Urine 0.2 mg/dL (0.2-1.0)
[2021-09-19 10:08] LABS: Add Urine Microscopic? YES; Blood Urine Trace-Intact (Negative); RBC Urine 0-2 /hpf (0-2); Squamous Epithelial Cell Urine Moderate /hpf (Few); WBC Urine None seen /hpf (0-3)
[2021-09-19 10:09] LABS: Bacteria Urine 1+ /hpf; Mucus Urine Moderate /lpf; Pregnancy On Board Control Positive; Urine Pregnancy Test Negative
--- NOTE | 2021-09-19 10:12 | ED.NAVMDI ---
HPI - Nausea/Vomiting/Diarrhea General Chief complaint: Nausea/Vomiting/Diarrhea Stated complaint: can not anyting down not feeling well Source: patient Mode of arrival: ambulatory History of Present Illness HPI Narrative: is a 26-year-old female presents with some nausea in episodes of vomiting with diarrhea crampy abdominal pain apparently family members had similar events has been going on for about a week off and and currently having some nausea currently no vomiting here with some no fever chills no shortness of breath no chest pain. MD elicited complaint: nausea, vomiting and diarrhea Onset (ago): day(s) Description of vomiting: watery Description of diarrhea: mucus Associated nausea: Yes Associated abdominal pain: No Related Data Home Medications Medication Instructions Recorded Confirmed sertraline 100 mg tablet 100 mg PO DAILY 06/16/21 09/19/21 Allergies Allergy/AdvReac Type Severity Reaction Status Date / Time bee venom protein (honey bee) Allergy Severe Swelling Verified 06/16/21 11:07 hornet venom Allergy Severe Swelling Verified 06/16/21 11:07 nitrofurantoin Allergy Severe Swelling Verified 06/16/21 11:07 NSAIDS (Non-Steroidal AdvReac Severe PROLONGED/INCREASED Verified 06/16/21 11:07 Anti-Inflamma BLEEDING Review of Systems Review of Systems: All systems reviewed & are unremarkable except as noted in HPI and below PMFSH Past Medical History Medical History (Updated 09/19/21 @ 10:14 by Axel Carlson MD) Endometriosis Surgical History Surgical History S/P laparoscopic procedure Family History Family History Father Cleft palate Mother Depression Grandparent Breast cancer Social History Social History Smoking status: Current some day smoker Tobacco type: cigarettes Alcohol intake: never Substance use: never Gender identity (if verbalized by the patient): Female Spiritual care concerns: No Exam Const: General: no acute distress and alert Orientation/consciousness: patient oriented x3 HENMT: Head: normal to inspection Eyes: Pupils: Equal, round and reactive pupils present EOM: EOMs intact bilaterally Direct Ophthalmoscopy: no photophobia Neck: Neck: normal visual inspection Chest: Chest palpation & inspection: normal inspection of the chest Resp: Effort & Inspection: normal respiratory effort Cardio: Rate: regular rate Rhythm: regular rhythm GI: GI Palp: Yes Soft to palpation : General: Yes no CVA tenderness Urinary Catheter: Urinary Catheter: patent and draining and urine clear Back/Spine/Pelvis: Back: no CVA tenderness Skin: General skin exam: normal color Rashes: no rashes Neuro: General: patient oriented x3 Extrem: General: no pedal edema Psych: Mental Status: mental status grossly normal Affect: normal affect Course Course Emergency Course: Patient received IV fluids, Zofran for nausea labs reviewed with patient. Vital Signs Vital signs: Vital Signs Temperature 36.4 C L 09/19/21 08:50 Pulse Rate 85 09/19/21 08:50 Respiratory Rate 18 09/19/21 08:50 Blood Pressure 114/74 09/19/21 08:50 Pulse Oximetry 99 09/19/21 08:50 Temperature 36.4 C L 09/19/21 08:50 Pulse Rate 85 09/19/21 08:50 Respiratory Rate 18 09/19/21 08:50 Blood Pressure 114/74 09/19/21 08:50 Pulse Oximetry 99 09/19/21 08:50 MDM - Nausea/Vomiting/Diarrhea Lab Data Result diagrams: 09/19/21 09:53 09/19/21 09:53 Labs: Lab Results 09/19/21 09/19/21 09/19/21 Range/Units 09:37 09:53 09:53 WBC 4.9 (4.8-10.8) K/mm3 RBC 3.74 L (4.20-5.40) M/mm3 Hgb 11.6 L (12.0-15.0) g/dL Hct 34.3 L (35.0-49.0) % MCV 91.7 (78.0-102.0) fL MCH 31.0 (27.0-31.0) pg MCHC 33.8 (32.0-36.0) g/dL RDW 11.6 (11.6-1
[2021-09-19 10:17] LABS: Alanine Aminotransferase 22 U/L (14-59); Albumin Level 3.7 g/dL (3.4-5.0); Alkaline Phosphatase 45 U/L (46-116); Anion Gap 10 mmol/L (8-16); Aspartate Amino Transferase 13 U/L (15-37); Bilirubin,Total 0.4 mg/dL (0.00-1.00); Blood Urea Nitrogen 7 mg/dL (7-18); Calcium 8.2 mg/dL (8.5-10.1); Carbon Dioxide 27 mmol/L (21-32); Chloride 103 mmol/L (98-108); Estimated CRCL calculation 82 ml/min; Estimated Glomerular Filt Rate > 60; Glucose 90 mg/dL (70-99); Osmolality Calculated 288 mOsm/kg (285-295); Potassium 3.1 mmol/L (3.5-5.1); Sodium 140 mmol/L (136-145); Total Protein 7.1 g/dL (6.4-8.2)
[2021-09-19 10:50] VITALS: BP 118/74; PULSE 84; RESP 20; TEMP 36.6; O2SAT 98
== END 2021-09-19 10:52 | disposition home or self-care (01) ==
PROVIDERS: Emergency Provider Emergency Medicine
DX: K52.9 Noninfective gastroenteritis and colitis, unspecified (principal)
CPT/HCPCS: 36415; 80053; 81001; 81025; 85025; 96361; 96374; 99283; 99284; J2405; J7030

== ENCOUNTER → 2021-12-26 00:19 | Outpatient (CLI) | payer OTHER, MEDICAID, SELFPAY ==
[2021-12-26 12:29] LABS: SARS-CoV-2 RNA PCR Negative
== END ==
PROVIDERS: Visit Provider Obstetrics & Gynecology
DX: Z01.812 Encounter for preprocedural laboratory examination (principal); Z20.822 Contact with and (suspected) exposure to COVID-19
CPT/HCPCS: C9803; U0003; U0005

== ENCOUNTER 2021-12-30 00:30 | Day surgery (SDC) | payer OTHER, MEDICAID, SELFPAY ==
[2021-12-21 15:10] VITALS: BMI 20.2
--- NOTE | 2021-12-21 15:23 | PC.NURSE ---
Report to the Outpatient Waiting Room, entrance under the green pavilion located off [facility], at time 0600 on date 12/30/21. OR Time: 0730. - You and your visitor will be asked a series of questions to screen for COVID 19 for your protection. - A mask is required within the hospital. One visitor will be allowed to accompany the patient into the hospital. Patients visitor will be instructed to remain with patient at all times or leave the building. We will allow the visitor to come back to the postoperative area when patient is ready. Preoperative COVID Testing Requirements: COVID TEST 12/26 AT 0930 No COVID Test needed if: (proof is required; if not received patient will have Rapid Test prior to entry) - Patient has received COVID Vaccine at least 14 days prior to procedure date or - Patient has positive COVID test result within last 90 days of surgery date. COVID Test needed if above criteria is not met If not COVID vaccinated a COVID test must be conducted within 72 hours of surgery and patient is asked to isolate self from time of testing until procedure. You will go to the [facility] for your COVID testing. The [facility] is located at the corner of [address] [facility]. You will only be called if COVID results are positive and your surgeon may reschedule your elective surgery date. Patients may have clear liquids (water, carbonated beverages, clear teas, apple juice) until 3 hours prior to surgery with a maximum of 20 ounces. - No food from midnight until time of surgery Take the following medications with a SIP of water the morning of surgery: SERTRALINE Medications to discontinue per physician: VITAMINS/SUPPLEMENTS Date to take last dose: 12/26/21 Please no make-up, nail mosotho, hairspray, perfume, deodorant, or body powder the day of surgery. No jewelry (including any body piercings) or valuables the day of surgery, leave them at home. Please take a shower or bath the night before, or the morning of, surgery with an antibacterial soap. Wear comfortable, loose fitting clothing. - Jewelry must be removed prior to entering the operating room. Rings and piercings that are not removed may be cut off. - The hospital will not accept responsibility for valuables. - Please leave all valuables, including medications, at home the day of surgery. If you are going home after surgery, a licensed motorcoach driver must drive you home. - NO public transportation without another adult. - We recommend that an adult stay with you for 24 hours following discharge. - We also recommend that you do not drive, make important decision, drink alcoholic beverages, or take any drugs that were not prescribed by your health care provider for at least 24 hours after your discharge time. Follow any additional instructions given to you from your surgeon. Telephone instructions given to NAE SOLIS and asked if any additional questions and then verbalized understanding. Patient advised to call surgeon office or pre surgery nurse liaison [phone] if any additional questions.
--- NOTE | 2021-12-29 09:53 | WPDANESEPPF ---
Anes - Initial Pre Proc Eval Procedure: Operation Date: 12/30/21 09:30 Proposed Procedures p Diagnostic Laparoscopy - Lubna Pichardo MD Date/Time: 12/29/21 09:53 Surgeon: Lubna Pichardo MD Pre Op Diagnosis: pelvic pain Patient Data Age: 26 Gender: F Height: 1.52 m Weight: 47.17 kg Allergies Allergy/AdvReac Type Severity Reaction Status Date / Time bee venom protein (honey bee) Allergy Severe Swelling Verified 12/21/21 15:09 hornet venom Allergy Severe Swelling Verified 12/21/21 15:09 nitrofurantoin Allergy Severe THROAT Verified 12/30/21 07:05 SWELLING NSAIDS (Non-Steroidal AdvReac Severe PROLONGED/INCREASED Verified 12/21/21 15:09 Anti-Inflamma BLEEDING Home Medications Medication Instructions Recorded Confirmed Type sertraline 100 mg tablet 100 mg PO DAILY 06/16/21 12/30/21 History ondansetron HCl [Zofran] 4 mg PO Q6H PRN #10 tablet 09/19/21 12/30/21 Rx ferrous sulfate [Iron (ferrous 325 mg PO DAILY 12/21/21 12/30/21 History sulfate)] Patient hx anesthesia problems: none Family hx anesthesia problems: none Results Review: All pre-operative results and documents have been reviewed as part of the pre-operative evaluation. [facility] Past Medical History Medical History (Updated 12/29/21 @ 09:53 by Chance De La Rosa DO) Anxiety Endometriosis Surgical History Surgical History S/P laparoscopic procedure Family History Family History Father Cleft palate Mother Depression Grandparent Breast cancer Social History Social History Smoking packs per day: 0.5 Smoking cigarettes per day: 10.0 Years smoked: 5 Smoking pack-years: 2.50 Smoking status: Current every day smoker Tobacco type: cigarettes Alcohol intake: current Alcohol use details: 1-2/MONTH Substance use: current Substance use type: marijuana Living arrangements: with family Gender identity (if verbalized by the patient): Female Spiritual care concerns: No Anes - Eval Final PreProcedure Day of Procedure 12/29/21 09:53 Patient weight: normal Heart: regular rate and rhythm Lungs: clear to auscultation and normal air movement Airway: Mallampati scale class II Neurological: alert and oriented Last oral intake: >/= 8 hours ASA classification: II Emergent: no Anesthetic plan: proceed Anesthesia type and monitoring: general ETT and standard monitoring Results Review: All pre-operative results and documents have been reviewed as part of the pre-operative evaluation. Informed Consent: The patient's anesthetic plan and its attendant risks and benefits were discussed with the patient/family/POA. Questions were solicited and answers provided to the satisfaction of the patient/family/POA.
[2021-12-30] VITALS (7 sets, daily range): BP systolic 86–134; BP diastolic 56–91; PULSE 62–91; RESP 9–20; TEMP 36.6–36.8; O2SAT 100
[2021-12-30] MEDS: ACETAMINOPHEN 500 MG TABLET 1000 MG PO (07:07)
[2021-12-30] MEDS: LACTATED RINGERS 1,000 ML 30 ML IV CONT ×3 (07:35→11:00)
[2021-12-30 07:49] LABS: Hemoglobin 11.1 g/dL (12.0-15.0)
--- NOTE | 2021-12-30 08:46 | WPDHPUPDATE1 ---
History and Physical Update Update Date/Time: 12/30/21 08:46 History and Physical has been reviewed, including an updated exam of the patient. There are NO changes in the patient's condition. Risks, benefits, and alternatives have been discussed and questions answered. Patient agrees to proceed with procedure.
[2021-12-30] MEDS: fentaNYL CITRATE INJ (*CRX) 100 MCG/2 ML VIAL 25 MCG IV PUSH ×3 (10:31→10:49)
--- NOTE | 2021-12-30 10:37 | W.PM.PROC2 ---
Procedure Note - Detailed Date of Procedure 12/30/21 Pre-op Diagnosis pelvic pain Post-op Diagnosis Same ( With ovarian cyst) Procedure Performed Diagnostic laparoscopy, left ovarian cystectomy, adhesiolysis- more than 30 minutes. Surgeon Lubna Pichardo MD Anesthesia General Indications Pelvic pain , left ovarian cyst Findings bilateral ovaries were adherent to the bilateral pelvic sidewalls. There was a 4-5 cm left ovarian cyst. Description of Procedure The patient was taken to the operating room. She was prepped and draped in the dorsal lithotomy position after induction general anesthesia. A 5 mm incision was made with a scalpel on the abdominal skin in the left upper quadrant of the abdomen. A 5 mm trocar was inserted into the intra-abdominal cavity under direct visualization the scope. In the same fashion a 5 mm left lower quadrant trocar was inserted and a 5 mm infraumbilical trocar was inserted. 30 minutes of adhesiolysis were performed using sharp and blunt dissection and cautery. The left ovary was densely adherent to the left pelvic sidewall over the ureter. The ureter was dissected out away from adhesions we during the adhesion dissection. it was found to be uninjured at the end of the procedure. Left ovarian cystectomy was performed. This was also done using sharp and blunt dissection along with cautery. Unipolar cautery was used in the ovary surface. Interceed was placed over the left pelvic sidewall. Prior to that the pelvis was irrigated with copious amounts of irrigation and Gelfoam was placed inside the left ovary to make it hemostatic. The pelvis was irrigated. The pneumoperitoneum was reduced. The trocars were removed. Skin was closed with subcuticular 4 micro. The patient's incisions were covered with Dermabond. She was taken recovery room in stable condition. Sponge lap and needle counts were correct x2. Estimated Blood Loss -5.0 Complications No immediate complications Condition Stable Disposition Same day
[2021-12-30] MEDS: oxyCODONE HCL (*CRX) 5 MG TAB IR PO (11:39)
== END 2021-12-30 12:03 | disposition home or self-care (01) ==
PROVIDERS: Anesthesiology; PCP Family Medicine; Visit Provider Obstetrics & Gynecology
PROC: (CPT 49320; principal; 2021-12-30 09:30)
DX: R10.2 Pelvic and perineal pain (principal); N73.6 Female pelvic peritoneal adhesions (postinfective); N83.12 Corpus luteum cyst of left ovary; F41.9 Anxiety disorder, unspecified; F17.210 Nicotine dependence, cigarettes, uncomplicated; F12.90 Cannabis use, unspecified, uncomplicated
CPT/HCPCS: 58662; 36415; 85014; 85018; 88305; A9270; C9803; J1100; J1170; J2250; J2405; J2704; J2710; J3010; J7030; J7120; U0003; U0005

== ENCOUNTER 2022-03-20 01:43 | Emergency (ER) | payer OTHER, MEDICAID, SELFPAY ==
[2022-03-20] VITALS (32 sets, daily range): BP systolic 85–112; BP diastolic 48–77; PULSE 63–110; RESP 11–23; TEMP 37.8; O2SAT 96–100
--- NOTE | ~2022-03-20 | US_ITS ---
EXAMINATION: US pelvic complete w TV DATE: 03/20/2022 06:24 INDICATION: Left pelvic pain TECHNIQUE: Multiple transabdominal and endovaginal sonographic images of the pelvis were obtained. COMPARISON: None. FINDINGS: The uterus measures 7.0 x 3.9 x 5.0 cm. The endometrial complex measures 5 mm. The right ov glenn measures 6.1 x 2.3 x 2.3 cm. There are hypoechoic lesions of the right ovary measuring 2.2 x 1.7 x 2.1 cm and 1.7 x 1.1 x 2.2 cm. Neither demonstrate internal vascularity. The left ovary measures 3. 5 x 2.0 x 2.8 cm. There is normal vascular flow in the ovaries. There is no free fluid in the pelvis. IMPRESSION: 1. Probable hemorrhagic cysts or endometriomas of the right ovary. Follow-up ultrasound in 8-12 weeks is recommended. Reviewed, dictated and finalized at location A. IMPRESSION: 1. Probable hemorrhagic cysts or endometriomas of the right ovary. Follow-up ul trasound in 8-12 weeks is recommended.
--- NOTE | ~2022-03-20 | CT_ITS ---
EXAMINATION: CT abdomen pelvis wo con DATE: 03/20/2022 04:17 INDICATION: Left lower abdominal pain TECHNIQUE: Computed tomography (CT) of the abdomen and pelvis was performed without intravenous contr ast. The dose-length product (DLP) was 172.57 mGy-cm. Automated exposure control and iterative recons truction technique were employed. COMPARISON: None FINDINGS: The lung bases are clear. The heart size is normal. Within the limitations of noncontrast e xamination, the liver, spleen, pancreas, gallbladder, and adrenal glands are normal. The kidneys are unremarkable. No pathologically enlarged abdominal or pelvic lymph nodes are identified. There is no free intraperitoneal gas or evidence of bowel obstruction. A moderate volume of colonic stool is pres ent. IMPRESSION: 1. No CT correlate for the patient's symptoms. Reviewed, dictated and finalized at location A.
--- NOTE | 2022-03-20 02:44 | ED.FEVER ---
HPI - Fever General Chief Complaint: Fever <Aline Shahid MD - Last Filed: 03/20/22 07:52> Stated Complaint: fever <Aline Shahid MD - Last Filed: 03/20/22 07:52> Time Seen by Provider: 03/20/22 02:30 <Aline Shahid MD - Last Filed: 03/20/22 07:52> Source: patient and family <Aline Shahid MD - Last Filed: 03/20/22 07:52> Mode of arrival: ambulatory <Aline Shahid MD - Last Filed: 03/20/22 07:52> Limitations: no limitations <Aline Shahid MD - Last Filed: 03/20/22 07:52> History of Present Illness HPI Narrative: This is a 27 year old female with history of ovarian cyst who presents for evaluation of left lower abdominal pain and fever. Patient states she had left ovarian cyst removed [address] Pichardo. She states her cyst has returned and she is scheduled to have her ovary removed. She reports constant left lower abdominal pain but it worsened on Tuesday. She call ed Dr. Pichardo and she was prescribed hydrocodone for pain. She reports her pain seemed to improved but it became worse again last night around 9 pm. She also has been having a fever tonight. Her significant other states she had fever of 102 F at home prior to arrival. She took hydrocodone 6 hours ago. She also reports nausea, vomiting and mild abnormal clear vaginal discharge. She denies runny nose , cough, sore throat or congestion. <Aline Shahid MD - Last Filed: 03/20/22 07:52> MD elicited complaint: fever <Aline Shahid MD - Last Filed: 03/20/22 07:52> Associated symptoms: abdominal pain, nausea and vomiting <Aline Shahid MD - Last Filed: 03/20/22 07:52> Related Data Home Medications: Home Medications Medication Instructions Recorded Confirmed sertraline 100 mg tablet 100 mg PO DAILY 06/16/21 12/30/21 ferrous sulfate 325 mg (65 mg 325 mg PO DAILY 12/21/21 12/30/21 iron) tablet (Iron (ferrous sulfate)) <Aline Shahid MD - Last Filed: 03/20/22 07:52> Allergies/Adverse Reactions: Allergies Allergy/AdvReac Type Severity Reaction Status Date / Time bee venom protein (honey bee) Allergy Severe Swelling Verified 02/18/22 13:42 hornet venom Allergy Severe Swelling Verified 02/18/22 13:42 nitrofurantoin Allergy Severe THROAT Verified 02/18/22 13:42 SWELLING NSAIDS (Non-Steroidal AdvReac Severe PROLONGED/INCREASED Verified 02/18/22 13:42 Anti-Inflamma BLEEDING <Aline Shahid MD - Last Filed: 03/20/22 07:52> Review of Systems Review of Systems: All systems reviewed & are unremarkable except as noted in HPI and below <Aline Shahid MD - Last Filed: 03/20/22 07:52> Constitutional: Constitutional: Denies chills and Reports fever(s) <Aline Shahid MD - Last Filed: 03/20/22 07:52> ENT: Denies nasal congestion and Denies sore throat <Aline Shahid MD - Last Filed: 03/20/22 07:52> Cardiovascular: Cardiovascular: Denies chest pain and Denies rapid heart rate <Aline Shahid MD - Last Filed: 03/20/22 07:52> Respiratory: Respiratory: Denies chest congestion and Denies cough <Aline Shahid MD - Last Filed: 03/20/22 07:52> Gastrointestinal: Gastrointestinal: Reports abdominal pain and Reports vomiting <Aline Shahid MD - Last Filed: 03/20/22 07:52> Genitourinary: Genitourinary: Denies hematuria, Denies nocturia and Reports vaginal discharge <Aline Shahid MD - Last Filed: 03/20/22 07:52> Musculoskeletal: Musculoskeletal: Denies back pain <Aline Shahid MD - Last Filed: 03/20/22 07:52> [facility] Past Medical History Medical History: Medical History Anxiety Endometriosis <Aline Shahid MD - Last Filed: 03/20/22 07:52> Surgical History Surgical History: Surgical History S/P laparoscopic procedure <Aline Shahid MD - Last Filed: 03/20/22 07:52> Famil
[2022-03-20 03:18] LABS: Basophils Percent Auto 0.4 % (0.2-1.2); Hematocrit 32.6 % (37.0-47.0); Immature Granulocyte Absolute 0.01 K/mm3 (0.00-0.031); Immature Granulocyte Percent A 0.4 % (0-0.5); Lymphocytes Absolute Auto 0.38 K/mm3 (0.9-3.2); Mean Corpuscular HGB Conc 33.7 g/dl (32-36); Mean Corpuscular Hemoglobin 32.2 pg (26-34); Mean Corpuscular Volume 95.3 fl (80-100); Mean Platelet Volume 9.6 fl (7.4-10.4); Monocytes Absolute Auto 0.5 K/mm3 (0.1-0.6); Monocytes Percent Auto 17.6 % (2.6-8.5); Neutrophils Absolute Auto 1.8 K/mm3 (1.3-6.7); Neutrophils Percent Auto 67.6 % (45.5-73.1); Platelet Count Result 125 k/mm3 (150-375); Red Blood Count 3.42 M/mm3 (4.2-5.4); Red Cell Distribution Width 11.9 % (11.5-14.5); White Blood Count 2.7 K/mm3 (4.5-10.0)
[2022-03-20 03:19] LABS: Appearance Urine Clear (Clear); Bilirubin Urine 1+ (Negative); Blood Urine 2+ (Negative); Color Urine Yellow (Yellow); Glucose Urine UA Negative (Negative); Ketones Urine 2+ mg/dL (Negative); Leukocyte Esterase Ur Negative LEU/UL (Negative); Nitrate Urine Negative (Negative); Protein Urine Trace mg/dL (Negative); Specific Grav Ur >= 1.030 (1.001-1.035); Urobilinogen Urine 0.2 mg/dL (<2.0); pH Urine 5.5 (5.0-9.0)
[2022-03-20] MEDS: SODIUM CHLORIDE 0.9% IV 1,000 ML 999 ML IV CONT (03:21)
[2022-03-20] MEDS: MORPHINE SULFATE (*CRX) 4 MG/ML INJ IV PUSH ×2 (03:22→06:50)
[2022-03-20] MEDS: ONDANSETRON INJ 4 MG/2 ML VIAL IV PUSH (03:22)
[2022-03-20 03:24] LABS: Bacteria Urine Trace /hpf; Mucus Urine Moderate /lpf; Squamous Epithelial Cell Urine Moderate /hpf (Few)
[2022-03-20 03:27] LABS: Alanine Aminotransferase 13 U/L (6-35); Albumin Level 4.3 g/dL (3.5-5.1); Alkaline Phosphatase 50 U/L (38-126); Anion Gap 8 mmol/L (8-16); Aspartate Amino Transferase 22 U/L (14-36); Bilirubin,Total 0.3 mg/dL (0.2-1.3); Blood Urea Nitrogen 12 mg/dL (7-17); Calcium 8.1 mg/dL (8.4-10.2); Carbon Dioxide 21 mmol/L (22-30); Chloride 107 mmol/L (98-107); Estimated CRCL calculation 73 ml/min; Estimated Glomerular Filt Rate > 60; Glucose 100 mg/dL (65-110); Lipase 64 U/L (23-300); Potassium 3.5 mmol/L (3.4-5.0); Sodium 136 mmol/L (137-145)
[2022-03-20 03:28] LABS: Lactic Acid Reflex 0.7 mmol/L (0.7-2.0)
[2022-03-20 05:19] LABS: Add Urine Microscopic? YES
[2022-03-20 06:12] LABS: Influenza A QL RT-PCR Negative (Negative); Influenza B QL RT-PCR Negative (Negative); SARS-CoV-2 RNA PCR Positive
== END 2022-03-20 11:00 | disposition home or self-care (01) ==
PROVIDERS: Emergency Provider General Practice; PCP Family Medicine
DX: U07.1 COVID-19 (principal); R10.32 Left lower quadrant pain; F41.9 Anxiety disorder, unspecified; N80.9 Endometriosis, unspecified; F17.210 Nicotine dependence, cigarettes, uncomplicated; R93.89 Abnormal findings on diagnostic imaging of other specified body structures
CPT/HCPCS: 36415; 74176; 76830; 76856; 80053; 81001; 81025; 83605; 83690; 85025; 87502; 96361; 96365; 96375; 96376; 99284; C9803; J0131; J2270; J2405; J7030; U0003; U0005

== ENCOUNTER 2022-03-31 01:21 | Day surgery (SDC) | payer OTHER, MEDICAID, SELFPAY ==
[2022-03-23 14:25] VITALS: BMI 17.4
--- NOTE | 2022-03-23 14:32 | PC.NURSE ---
Report to the Outpatient Waiting Room, entrance under the green pavilion located off [facility], at time ___0830_ on date _[id number]_. OR Time: _1030_. - You and your visitor will be asked a series of questions to screen for COVID 19 for your protection. - Only one visitor is allowed at this time. - The patient visitor is requested to leave or wait in car when not with patient. - A mask is required within the hospital. Patients may have clear liquids (water, carbonated beverages, clear teas, apple juice) until 3 hours prior to surgery with a maximum of 20 ounces. - No food from midnight until time of surgery Take the following medications with a SIP of water the morning of surgery: __None Medications to discontinue per physician vitamin gummies Date to take last swic__[id number] Please no make-up, nail uzbek, hairspray, perfume, deodorant, or body powder the day of surgery. No jewelry (including any body piercings) or valuables the day of surgery, leave them at home. Please take a shower or bath the night before, or the morning of, surgery with an antibacterial soap. Wear comfortable, loose fitting clothing. Children are encouraged to wear pajamas. - Jewelry must be removed prior to entering the operating room. Rings and piercings that are not removed may be cut off. - The hospital will not accept responsibility for valuables. - Please leave all valuables, including medications, at home the day of surgery. If you are going home after surgery, a licensed regional refrigerated cdl truck driver must drive you home. - NO public transportation without another adult. - We recommend that an adult stay with you for 24 hours following discharge. - We also recommend that you do not drive, make important decision, drink alcoholic beverages, or take any drugs that were not prescribed by your health care provider for at least 24 hours after your discharge time. Follow any additional instructions given to you from your surgeon. If you or anyone in your household have experienced Covid symptoms in the past week, please notify your surgeon or the nurse liaison at the phone number below for possible testing. Telephone instructions given to __Patient and asked if any additional questions and then verbalized understanding. Patient advised to call surgeon office or pre surgery nurse liaison [phone] if any additional questions.
--- NOTE | 2022-03-30 09:22 | WPDANESEPPF ---
Anes - Initial Pre Proc Eval Procedure: Operation Date: 03/31/22 10:30 Proposed Procedures p Laparoscopic Left Oophorectomy - Lubna Pichardo MD <Chance De La Rosa DO - Last Filed: 04/02/22 06:31> Date/Time: 03/30/22 09:22 <Chance De La Rosa DO - Last Filed: 04/02/22 06:31> Surgeon: Lubna Pichardo MD <Chance De La Rosa DO - Last Filed: 04/02/22 06:31> Pre Op Diagnosis: Pain in Pelvis <Chance De La Rosa DO - Last Filed: 04/02/22 06:31> Patient Data Age: 27 Gender: F Height: 1.57 m Weight: 43.2 kg <Chance De La Rosa DO - Last Filed: 04/02/22 06:31> Allergies Allergy/AdvReac Type Severity Reaction Status Date / Time bee venom protein (honey bee) Allergy Severe Swelling Verified 03/31/22 09:23 hornet venom Allergy Severe Swelling Verified 03/31/22 09:23 nitrofurantoin Allergy Severe THROAT Verified 03/31/22 09:23 SWELLING NSAIDS (Non-Steroidal AdvReac Severe PROLONGED/INCREASED Verified 03/31/22 09:23 Anti-Inflamma BLEEDING <Chance De La Rosa DO - Last Filed: 04/02/22 06:31> Home Medications Medication Instructions Recorded Confirmed Type ondansetron HCl 4 mg tablet 4 mg PO Q6H PRN nausea and 09/19/21 03/31/22 Rx (Zofran) vomiting #10 tabs hydrocodone 5 mg-acetaminophen 325 1 tablet PO Q4H PRN pain #14 tabs 12/30/21 03/31/22 Rx mg tablet multivitamin with minerals-folic 1 tablet PO QAM 03/23/22 03/31/22 History acid 200 mcg chewable tablet (Multivitamin Gummies) omeprazole 40 mg capsule,delayed 40 cap PO QAM 03/23/22 03/31/22 History release hydrocodone 5 mg-acetaminophen 325 1 tablet PO Q4H PRN pain #14 tabs 03/31/22 Rx mg tablet <Chance De La Rosa DO - Last Filed: 04/02/22 06:31> Patient hx anesthesia problems: none <Chance Fishmanhaimdeannroula DO - Last Filed: 04/02/22 06:31> Family hx anesthesia problems: none <Chance De La Rosa DO - Last Filed: 04/02/22 06:31> Results Review: All pre-operative results and documents have been reviewed as part of the pre-operative evaluation. <Chance UrbinaTiffanie De La Rosa DO - Last Filed: 04/02/22 06:31> [facility] Past Medical History Medical History: Medical History (Updated 03/31/22 @ 07:21 by Lubna Pichardo MD) Anxiety Depression Endometriosis Hypokalemia <Chance UrbinaTiffanie De La Rosa DO - Last Filed: 04/02/22 06:31> Surgical History Surgical History: Surgical History S/P laparoscopic procedure <Chance UrbinaTiffanie De La Rosa DO - Last Filed: 04/02/22 06:31> Family History Family History: Family History Father Cleft palate Mother Depression Grandparent Breast cancer <Chance UrbinaTiffanie De La Rosa DO - Last Filed: 04/02/22 06:31> Social History Social History: Social History Smoking packs per day: 0.5 Smoking cigarettes per day: 10.0 Years smoked: 5 Smoking pack-years: 2.50 Smoking status: Former smoker Tobacco type: cigarettes Alcohol intake: current Alcohol use details: 1-2/MONTH Substance use: current Substance use type: marijuana Living arrangements: with family Gender identity (if verbalized by the patient): Female Spiritual care concerns: No <Chance De La Rosa DO - Last Filed: 04/02/22 06:31> Anes - Eval Final PreProcedure Day of Procedure 03/30/22 09:22 <Chance De La Rosa DO - Last Filed: 04/02/22 06:31> Patient weight: thin <Chacne De La Rosa DO - Last Filed: 04/02/22 06:31> Heart: regular rate and rhythm <Chance De La Rosa DO - Last Filed: 04/02/22 06:31> Lungs: clear to auscultation <Chance De La Rosa DO - Last Filed: 04/02/22 06:31> Airway: Mallampati scale class II <Chance De La Rosa DO - Last Filed: 04/02/22 06:31> Neurological: alert and
[2022-03-31] VITALS (10 sets, daily range): BP systolic 89–114; BP diastolic 52–79; PULSE 56–88; RESP 10–18; TEMP 36.1–36.4; O2SAT 100
--- NOTE | 2022-03-31 07:19 | PM.IMHP ---
H&P: HPI History of Present Illness Date/Time: 03/31/22 07:19 Chief Complaint: Pelvic pain Narrative: This patient is a 27-year-old female with recurrent left ovarian cysts and longstanding chronic pelvic pain. We have agreed to perform left oophorectomy. She has a large hemorrhagic left ovarian cyst. She understands the implications of an oophorectomy. She understands the impact on fertility and the possibility of losing the other ovary is losing fertility altogether. She understands the hormonal aspects of an oophorectomy. She understands the risks. She understands that injuries may occur that result in hospitalization, more surgery, and severe illness. She understands risk of hemorrhage and infection. She has completed the informed consent process. Review of Systems Review of Systems: All systems reviewed & are unremarkable except as noted in HPI and below Constitutional: Constitutional: Denies chills, Denies fatigue, Denies fever(s) and Denies weakness Eyes: Eyes: Denies blurry vision, Denies change in vision, Denies loss of peripheral vision, Denies loss of vision, Denies other visual disturbances and Denies eye pain ENT: Denies vertigo, Denies dizziness, Denies hearing loss, Denies mouth pain, Denies nasal obstruction, Denies neck mass and Denies neck pain Cardiovascular: Cardiovascular: Denies chest pain, Denies diaphoresis, Denies syncope, Denies leg edema and Denies dyspnea Respiratory: Respiratory: Denies chest congestion, Denies cough, Denies hemoptysis, Denies dyspnea and Denies wheezing Gastrointestinal: Gastrointestinal: Denies abdominal pain, Denies constipation, Denies diarrhea, Denies nausea and Denies vomiting Genitourinary: Genitourinary: Denies hematuria, Denies change in libido, Denies nocturia, Denies genital lesions, Denies flank pain and Denies urinary urgency Musculoskeletal: Musculoskeletal: Denies abnormal gait, Denies back pain, Denies myalgias, Denies arthralgias, Denies joint swelling, Denies muscle weakness and Denies neck pain Integumentary/Breasts: Skin/Breast: Denies swelling, Denies breast pain, Denies breast mass, Denies dry skin, Denies nipple discharge, Denies unusual bruising and Denies jaundice Neurologic: Denies Neuro-related abnormal movements, Denies Abnormal speech present, Denies abnormal gait, Denies behavioral changes, Denies confusion, Denies vertigo, Denies dizziness, Denies syncope, Denies loss of vision, Denies memory loss, Denies convulsions and Denies weakness Psychiatric: Psychiatric: Denies abnormal sleep pattern, Denies behavioral changes, Denies change in libido, Denies confusion, Denies depression, Denies anhedonia and Denies memory loss Endocrine: Endocrine: Reports no additional endocrine complaints, Denies change in libido and Denies fatigue Hematologic/Lymphatic: Hematologic/Lymphatic: Reports no additional hematologic/lymphatic complaints Allergic/Immunologic: Allergic/Immunologic: Reports no additional allergic/immunologic complaints and Denies wheezing PMFSH Past Medical History Medical History (Updated 03/31/22 @ 07:21 by Lubna Pichardo MD) Anxiety Depression Endometriosis Hypokalemia Surgical History Surgical History S/P laparoscopic procedure Family History Family History Father Cleft palate Mother Depression Grandparent Breast cancer Social History Social History Smoking packs per day: 0.5 Smoking cigarettes per day: 10.0 Years smoked: 5 Smoking pack-years: 2.50 Smoking status: Former smoker Tobacco type: cigarettes Alcohol intake: current Alcohol use details: 1-2/MONTH Substance use: current Substance use type: marijuana Living arrangements: with family Gender identity (if verbalized by the patient): Female Spiritual care concerns: No
[2022-03-31] MEDS: ACETAMINOPHEN 500 MG TABLET 1000 MG PO (08:49)
[2022-03-31] MEDS: LACTATED RINGERS 1,000 ML 30 ML IV CONT ×2 (08:54→10:58)
--- NOTE | 2022-03-31 08:59 | WPDHPUPDATE1 ---
History and Physical Update Update Date/Time: 03/31/22 08:59 History and Physical has been reviewed, including an updated exam of the patient. There are NO changes in the patient's condition. Risks, benefits, and alternatives have been discussed and questions answered. Patient agrees to proceed with procedure.
[2022-03-31] MEDS: SCOPOLAMINE 1.5 MG PATCH TRANSDERM (09:00)
[2022-03-31] MEDS: KETOROLAC 15 MG/ML VIAL (*BKC) IV PUSH (09:01)
--- NOTE | 2022-03-31 10:46 | W.PM.PROC2 ---
Procedure Note - Detailed Date of Procedure 03/31/22 Pre-op Diagnosis Pain in Pelvis, endometriosis, ovarian cysts Post-op Diagnosis Same (Pelvic adhesions) Procedure Performed Laparoscopic left ovarian cystectomy, adhesiolysis Surgeon Lubna Pichardo MD Anesthesia General Indications Pelvic pain, ovarian cysts, endometriosis Findings Left ovarian cyst, completely scarred down left ovary with clubbed fallopian tube on the left and clubbed fallopian tube on the right. Adhesions between the posterior uterus and the posterior cul-de-sac. These adhesions between the left ovary and the reyes rectal fat. Description of Procedure The patient was taken to the operating room. She was prepped and draped in the dorsal lithotomy position after induction general anesthesia. A 5 mm incision was made with a scalpel on the abdominal skin in the left upper quadrant of the abdomen. A 5 mm trocar was inserted into the intra-abdominal cavity under direct visualization the scope. In the same fashion a 11 mm left lower quadrant trocar was inserted and a 11 mm infraumbilical trocar was inserted. Adhesiolysis was performed on the left hemipelvis for 30 minutes. Ureter was identified, the infundibulopelvic ligament was cauterized. The ovary was freed from the left pelvic sidewall. The suspensory ligament the ovary and fallopian tube were cauterized and transected at the cornual area. The mesosalpinx adjacent to the fallopian tube was cauterized transected. The salary was all thickened. The tube was completely the adherent to the left ovary and the fimbriated end was blunted and no fimbria or surface tissue within the tube could be observed. This was the same on the right side. Adhesiolysis was performed on the area between the uterus and the posterior cul-de-sac. It was freed. It could not be moved initially an was now freely moving. Interceed was placed over the dissected area in the left hemipelvis. The pelvis was irrigated. The pneumoperitoneum was reduced. The trocars were removed. Skin was closed with subcuticular 4 micro. The patient's incisions were covered with Dermabond. She was taken recovery room in stable condition. Sponge lap and needle counts were correct x2. Estimated Blood Loss 20 Complications No immediate complications Condition Stable Disposition Same day
[2022-03-31] MEDS: fentaNYL CITRATE INJ (*CRX) 100 MCG/2 ML VIAL 25 MCG IV PUSH ×4 (10:49→11:30)
[2022-03-31] MEDS: oxyCODONE HCL (*CRX) 5 MG TAB IR PO (12:27)
== END 2022-03-31 13:25 | disposition home or self-care (01) ==
PROVIDERS: PCP Family Medicine; Visit Provider Obstetrics & Gynecology
PROC: (CPT 49320; principal; 2022-03-31 10:30)
DX: N83.12 Corpus luteum cyst of left ovary (principal); R10.2 Pelvic and perineal pain; N73.6 Female pelvic peritoneal adhesions (postinfective); N83.8 Other noninflammatory disorders of ovary, fallopian tube and broad ligament; N70.11 Chronic salpingitis; Z87.891 Personal history of nicotine dependence; F12.90 Cannabis use, unspecified, uncomplicated
CPT/HCPCS: 58661; 88305; A9270; J1100; J1885; J2250; J2270; J2405; J2704; J2710; J3010; J7030; J7120

== ENCOUNTER 2022-09-13 13:13 | Emergency (ER) | payer OTHER, MEDICAID, SELFPAY ==
[2022-09-13] VITALS (7 sets, daily range): BP systolic 96–111; BP diastolic 62–77; PULSE 68–83; RESP 16–18; TEMP 36.2–36.7; O2SAT 98–100
--- NOTE | ~2022-09-13 | CT_ITS ---
EXAMINATION: CT chest abdomen pelvis wo con DATE: 09/13/2022 15:05 INDICATION: Chest pain, cough, dizziness. Fever. Frontal headache. TECHNIQUE: Computed tomography (CT) of the chest, abdomen and pelvis was performed without intravenou s contrast. Automated exposure control and iterative reconstruction technique were employed. Exam dos e: 241.72 mGy-cm total exam DLP. COMPARISON: None FINDINGS: No pulmonary infiltrate or consolidation or pulmonary mass lesion is detected. Normal heart size. No pericardial or pleural effusion. No thoracic aortic aneurysm. No hilar or media stinal mass lesion or lymphadenopathy is evident. The liver, gallbladder, bile ducts, spleen, pancreas, pancreatic duct, and adrenal glands appear norm al on this limited noncontrast examination. No renal mass lesion or urinary tract calculus or hydroureteronephrosis is evident. The urinary bladd er is unremarkable. Retroverted uterus. Normal appendix. No bowel obstruction, bowel wall thickening or intraperitoneal free air is noted. Normal caliber of the abdominal aorta. No intraperitoneal or retroperitoneal or pelvic mass lesion or adenopathy or ascites. No suspicious osteolytic or osteoblastic lesions. IMPRESSION: No significant abnormality Reviewed, dictated and finalized at [facility]. Reviewed, dictated and finalized at location [facility]. JEWEL PLATE ASSEMBLER IMPRESSION: No significant abnormality
--- NOTE | 2022-09-13 13:47 | ECG_ITS ---
Measurements Intervals [place]ard Rate: 78 P: 67 NV: 138 QRS: 88 QRSD: 80 T: 11 QT: 361 QTc: 413 Interpretive Statements SINUS RHYTHM DELAYED PRECORDIAL R/S TRANSITION MINIMAL Q WAVES- INFERIOR LEADS BASELINE ARTIFACT- I, II, III, AVR, AVL, AVF BORDERLINE ECG NO PREVIOUS ECG AVAILABLE FOR COMPARISON Electronically Signed On 09-13-2022 17:59:01 LOADING DOCK HELPER by Immanuel Kumar D.O.
[2022-09-13 14:05] LABS: Appearance Urine Clear (Clear); Bilirubin Urine Negative (Negative); Blood Urine 1+ (Negative); Glucose Urine UA Negative (Negative); Ketones Urine Negative (Negative); Leukocyte Esterase Ur Trace LEU/UL (Negative); Nitrate Urine Negative (Negative); Protein Urine Negative (Negative); Specific Grav Ur <= 1.005 (1.010-1.020); Urobilinogen Urine 0.2 mg/dL (0.2-1.0)
[2022-09-13 14:10] LABS: Amphetamine Screen Urine Negative (Negative); Barbiturate Screen Urine Negative (Negative); Benzodiazepines Screen Urine Negative (Negative); Cannabinoid Screen Urine Positive (Negative); Cocaine Screen Urine Negative (Negative); Methadone Screen Urine Negative (Negative); Opiate Screen Urine Negative (Negative); Phencyclidine Screen Urine Negative (Negative)
[2022-09-13 14:11] LABS: Add Urine Microscopic? YES; Bacteria Urine 1+ /hpf; Color Urine Light Yellow (Yellow); Squamous Epithelial Cell Urine Few /hpf (Few); WBC Urine None seen /hpf (0-3)
[2022-09-13] MEDS: SODIUM CHLORIDE 0.9% IV 1,000 ML 999 ML IV CONT (14:17)
[2022-09-13] MEDS: ONDANSETRON INJ 4 MG/2 ML VIAL IV PUSH (14:19)
[2022-09-13 14:20] LABS: Hematocrit 35.4 % (35.0-49.0); Hemoglobin 11.8 g/dL (12.0-15.0); Mean Corpuscular HGB Conc 33.3 g/dL (32.0-36.0); Mean Corpuscular Hemoglobin 31.8 pg (27.0-31.0); Mean Corpuscular Volume 95.4 fL (78.0-102.0); Mean Platelet Volume 9.1 fl (9.2-11.8); Platelet Count Result 148 K/mm3 (150-420); Red Blood Count 3.71 M/mm3 (4.20-5.40); Red Cell Distribution Width 11.3 % (11.6-14.4); White Blood Count 2.9 K/mm3 (4.8-10.8)
[2022-09-13] MEDS: PANTOPRAZOLE SODIUM IV 40 MG VIAL IV PUSH (14:20)
[2022-09-13 14:36] LABS: Alanine Aminotransferase 10 U/L (14-59); Alkaline Phosphatase 45 U/L (46-116); Anion Gap 12 mmol/L (8-16); Aspartate Amino Transferase 12 U/L (15-37); Bilirubin,Total 0.3 mg/dL (0.00-1.00); Blood Urea Nitrogen 10 mg/dL (7-18); Calcium 8.4 mg/dL (8.5-10.1); Carbon Dioxide 26 mmol/L (21-32); Chloride 104 mmol/L (98-108); Estimated CRCL calculation 79 ml/min; Estimated Glomerular Filt Rate > 60; Ethanol < 3 mg/dL (0-6); Glucose 84 mg/dL (70-99); Lipase 64 U/L (73-393); Osmolality Calculated 292 mOsm/kg (285-295); Potassium 3.7 mmol/L (3.5-5.1); Sodium 142 mmol/L (136-145); Total Protein 7.5 g/dL (6.4-8.2); Troponin I < 4.0 ng/L (0.00-60.4)
[2022-09-13 14:37] LABS: SPREG INTERNAL CONTROL Positive; Serum Qual hCG Negative
[2022-09-13 14:38] LABS: Lactic Acid Reflex 0.4 mmol/L (0.4-2.0)
[2022-09-13 14:43] LABS: Strep Group A RT-PCR Not Detected (Negative)
[2022-09-13 14:48] LABS: Band Neutrophils Percent 3 % (0-6); Basophils Percent Manual 0 % (0-1); Eosinophils Absolute Manual 0.05 K/mm3 (0.02-0.5); Eosinophils Percent Manual 2 % (1-6); Lymphocytes Absolute Manual 0.92 K/mm3 (1.1-4.5); Lymphocytes Percent Manual 32 % (18-44); Monocytes Absolute Manual 0.29 K/mm3 (0.1-0.90); Monocytes Percent Manual 10 % (3-9); Neutrophils Absolute Manual 1.62 K/mm3 (1.7-7.2); Neutrophils Percent Manual 53 % (46-73); Platelet Estimate Adequate (Adequate); Total Cells Counted 100
[2022-09-13 14:49] LABS: Influenza A QL RT-PCR Positive (Negative); Influenza B QL RT-PCR Negative (Negative); SARS-CoV-2 RNA PCR Negative (Negative)
--- NOTE | 2022-09-13 16:34 | ED.FEVER ---
HPI - Fever General Chief Complaint: Fever Stated Complaint: Cough,weak,nauseated Time Seen by Provider: 09/13/22 13:15 Source: patient and RN notes reviewed Mode of arrival: ambulatory Limitations: no limitations History of Present Illness MD elicited complaint: fever Onset (ago): day(s) (2) Exacerbating factors: nothing Relieving factors: acetaminophen Associated symptoms: abdominal pain, nausea and diarrhea Treatments prior to arrival fever: acetaminophen Related Data Home Medications Medication Instructions Recorded Confirmed omeprazole 40 mg capsule,delayed 40 cap PO QAM 03/23/22 09/13/22 release progesterone micronized 200 mg 200 mg PO USEASDIRECTD 09/13/22 09/13/22 capsule Allergies Allergy/AdvReac Type Severity Reaction Status Date / Time bee venom protein (honey bee) Allergy Severe Swelling Verified 09/13/22 13:34 hornet venom Allergy Severe Swelling Verified 09/13/22 13:34 nitrofurantoin Allergy Severe THROAT Verified 09/13/22 13:34 SWELLING NSAIDS (Non-Steroidal AdvReac Severe PROLONGED/INCREASED Verified 09/13/22 13:34 Anti-Inflamma BLEEDING Review of Systems Review of Systems: All systems reviewed & are unremarkable except as noted in HPI and below Constitutional: Constitutional: Reports no additional constitutional complaints Eyes: Eyes: Reports no additional eye complaints ENT: Reports system reviewed and no additional complaints, except as documented Cardiovascular: Cardiovascular: Reports no additional cardiovascular complaints Respiratory: Respiratory: Reports no additional respiratory complaints Gastrointestinal: Gastrointestinal: Reports no additional gastrointestinal complaints Genitourinary: Genitourinary: Reports no additional female genitourinary complaints Musculoskeletal: Musculoskeletal: Reports no additional musculoskeletal complaints Integumentary/Breasts: Skin/Breast: Reports system reviewed and no additional complaints, except as docu Neurologic: Reports system reviewed and no additional complaints, except as documented Psychiatric: Psychiatric: Reports no additional psychiatric complaints Endocrine: Endocrine: Reports no additional endocrine complaints Hematologic/Lymphatic: Hematologic/Lymphatic: Reports no additional hematologic/lymphatic complaints Allergic/Immunologic: Allergic/Immunologic: Reports no additional allergic/immunologic complaints [facility] Past Medical History Medical History Anxiety Depression Endometriosis Gastroenteritis Hypokalemia UTI (urinary tract infection) Surgical History Surgical History S/P laparoscopic procedure Family History Family History Father Cleft palate Mother Depression Grandparent Breast cancer Social History Social History Smoking packs per day: 0.5 Smoking cigarettes per day: 10.0 Years smoked: 5 Smoking pack-years: 2.50 Smoking status: Former smoker Tobacco type: cigarettes Alcohol intake: current Alcohol use details: 1-2/MONTH Substance use: current Substance use type: marijuana Gender identity (if verbalized by the patient): Female Spiritual care concerns: No Exam Const: General: no acute distress and well nourished Nutritional Appearance: well nourished Orientation/consciousness: patient oriented x3 Limitations: no limitations HENMT: Head: normal to inspection Ears: external ears normal, TM's normal bilaterally and EAC's normal Face/Nose/Sinus: Normal external nose present, Normal nares present, normal facial exam and sinuses nontender Face and sinus: normal facial exam and sinuses nontender Mouth: Yes Normal oral and palatal mucosa present and Yes moist mucous membranes Teeth and gingiva: dentition normal Throat: posterior oropharynx no
== END 2022-09-13 16:48 | disposition home or self-care (01) ==
PROVIDERS: Emergency Provider Emergency Medicine; PCP Family Medicine
DX: B34.9 Viral infection, unspecified (principal); K52.9 Noninfective gastroenteritis and colitis, unspecified; Z20.822 Contact with and (suspected) exposure to COVID-19
CPT/HCPCS: 36415; 71250; 74176; 80053; 80307; 81001; 83605; 83690; 84484; 84703; 85025; 87636; 87651; 93005; 96361; 96374; 96375; 99284; C9113; J2405; J7030

== ENCOUNTER 2023-12-05 13:33 | Outpatient (CLI) | payer MEDICAID, SELFPAY ==
--- NOTE | ~2023-12-05 | US_ITS ---
US breast BI limited INDICATION: Palpable bilateral breast abnormalities. TECHNIQUE: Dedicated Limited bilateral breast ultrasound COMPARISON: Ultrasound dated 07/13/2020 FINDINGS: The breasts are composed of normal heterogeneous echotexture without focal solid or cystic mass. IMPRESSION: 1: Normal limited bilateral breast ultrasound. BI-RADS CATEGORY 1 - NEGATIVE Reviewed, dictated and finalized at location [facility]. OPERATOR
== END 2023-12-05 13:34 | disposition home or self-care (01) ==
LOC: ANHIMG 13:38
PROVIDERS: Visit Provider Nurse Practitioner
DX: N64.4 Mastodynia (principal)
CPT/HCPCS: 76642

== ENCOUNTER 2025-06-01 09:29 | Outpatient (CLI) | payer OTHER, SELFPAY ==
--- NOTE | ~2025-06-01 | MR_ITS ---
MRI of the brain Clinical History: Migraine headache Technique: Axial and sagittal T1-weighted images were acquired. These were followed by axial T2-weigh candis, diffusion weighted, gradient, and FLAIR images. Findings: No abnormal signal seen in the brain parenchyma. No acute infarct, intracranial hemorrhage, or mass lesion. Ventricles and subarachnoid spaces are unremarkable. Orbits are unremarkable. There is minimal right ethmoid sinus disease and minimal bilateral frontal sinus disease. Remaining paranasal sinuses and ma stoid air cells are clear. Major intracranial flow voids are intact. Sagittal midline structures are intact. IMPRESSION: Minimal sinus disease, as above, otherwise unremarkable exam. Reviewed, dictated and finalized at location .
--- OUTSIDE RECORDS SUMMARY | 2025-06-01 09:35 | XMS_ITS | Encounter Summary ---
Author Organization [facility] Address [address] [place] [address] Care Team Providers Care Blanker Press Operator Name Role Phone Margie Alford MD Primary Care Provider [phone] Encounter Details Date Type Department Care Team (Late st Contact Info) Description 09/29/2021 Hospital Orders Only [facility] [address] [place] [address] [place] [address] Kalee Clark RN Social History Tobacco Use Types Packs/Day Years Used Date Smoking Tobacco: Former Smokeless Tobacco: Never Alcohol Use Standard Drinks/Week Comments Never 0 (1 standard drink = 0.6 oz pur e alcohol) Comments No Sex and Gender Information Value Date Recorded Sex Assigned at Female 12/10/2024 9:49 AM POLICY WRITER SALES Legal Sex Female 5:12 PM CDT Gender Identity Not on file Sexual Orientation Not on file COVID-19 Exposure Response Date Recorded In the last month, have you been in contact with someone who was confirmed or suspected to have Coronavirus / COVID-19? No / Unsure 10/02/2021 10:34 AM POLICY WRITER SALES documented as of this encounter Functional Status * RETIRED Are you deaf or do you have serious difficulty hearing Answer Date of Assessment Author Status No 09/21/2021 8:23 AM POLICY WRITER SALES Activ e * RETIRED Are you blind or do you have serious difficulty seeing, even when wearing glasses? Answer Date of Assessment Author Status No 09/21/2021 8:23 AM POLICY WRITER SALES Activ e * Do you have serious difficulty walking or climbing stairs? Answer Date of Assessment Author Status No 09/21/2021 8:23 AM POLICY WRITER SALES Mere Guardado RN Active * Do you have difficulty dressing or bathing? Answer Date of Assessment Author Status No 09/21/2021 8:23 AM Mere Rubio RN Active * Because of a physical, mental, or emotional condition, do you have difficulty doing errands alone such as visiting a doctor's office or shopping? Answer Date of Assessment Author Status No 09/21/2021 8:23 AM Mere Rubio RN Active documented as of this encounter Mental Status * Because of a physical, mental, or emotional condition, do you have serious difficulty concentrating, remembering, or making decisions? 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
--- OUTSIDE RECORDS SUMMARY | 2025-06-01 09:35 | XMS_ITS | Encounter Summary ---
Author Organization [facility] Address [address] [place] [id number] Care Team Providers Care Operation Research Analyst Name Role Phone Margie Alford MD Primary Care Provider [phone] Encounter Details Date Type Department Care Team (Late st Contact Info) Description 03/24/2019 Abstract [facility] CONVERSION [address] [place] [address] , Generic Conversion, Social History Tobacco Use Types Packs/Day Years Used Date Smoking Tobacco: Never Assessed Comments Unknown Sex and Gender Information Value Date Recorded Sex Assigned at Female 12/10/2024 9:49 AM SECURITY INCIDENT HANDLER Legal Sex Female 5:12 PM CDT Gender Identity Not on file Sexual Orientation Not on file documented as of this encounter Plan of Treatment Not on file documented as of this encounter Visit Diagnoses Not on filedocumented in this encounter Additional Health Concerns Infection Onset Date Last Indicated Resolved Time MRSA 11/01/2018 11/01/2018 COVID-19 Rule Out 09/21/2021 09/21/2021 09/21/2021 3:46 AM SECURITY INCIDENT HANDLER documented as of this encounter Care Teams Operation Research Analyst Relationship Specialty Start Date End Date Margie Alford MD [address] [place] [id number] PCP - General FAMILY PRACTICE 11/17/19 documented as of this encounter
--- OUTSIDE RECORDS SUMMARY | 2025-06-01 09:35 | XMS_ITS | Clinical Summary ---
Author Organization [facility] Address [facility] [place] [address] Care Team Providers Care Program Therapist Name Role Phone Margie Alford MD Primary Care Provider [phone] Allergies Active Allergy Reactions Criticality Noted Date Comments Bee Venom Swelling 07/25/2023 Hornet Venom Swelling 07/25/2023 Nitrofurantoin Throat swelling 11/17/2019 Nsaids Itching 09/19/2022 Medications ALPRAZolam 0.25 MG tablet Take 1 tablet (0.25 mg total) by mouth nightly as needed for Sleep. Active omeprazole 40 MG capsule Take 1 capsule (40 mg total) by mouth daily. Active PARoxetine 20 MG tablet Take 1 tablet (20 mg total) by mouth every morning. Active tetracycline (SUMYCIN) 500 MG capsule tetracycline 500 mg capsule TAKE 1 CAPSULE BY MOUTH EVERY 6 HOURS Active promethazine (PHENERGAN) 25 MG tablet 2 Active sucralfate (CARAFATE) 1 G tablet sucralfate 1 gram tablet TAKE 1 TABLET BY MOUTH FOUR TIMES DAILY 1 HOUR BEFORE MEALS AND AT BEDTIME Active progesterone (PROMETRIUM) 200 MG capsule 2 Active predniSONE (DELTASONE) 20 MG tablet prednisone 20 mg tablet Active potassium chloride CR (KLOR-CON M) 20 MEQ tablet potassium chloride ER 20 mEq tablet,extended release(part/ambreen t) TAKE 2 TABLETS BY MOUTH DAILY FOR 5 DAYS Active metroNIDAZOLE (FLAGYL) 250 mg tablet metronidazole 250 mg tablet TAKE 1 TABLET BY MOUTH EVERY 6 HOURS Active metroNIDAZOLE (METROGEL) 0.75 % vaginal gel metronidazole 0.75 % (37.5 mg/5 gram) vaginal gel Active meclizine (ANTIVERT) 25 MG tablet every 8 (eight) hours. Active vitamin D2, ergocalciferol , (VITAMIN D, ERGOCALCIFEROL ,) 45957 UNITS capsule 1 capsule (1.25 mg total) every 30 (thirty) days. Active vitamin D3, cholecalcifero l, (CHOLECALCIFER OL) 1.25 mg capsule Take 1 capsule every week by oral route. 3 Active ondansetron (ZOFRAN) 4 MG tablet Take 1 tablet (4 mg total) by mouth every 8 (eight) hours as needed for Nausea. 20 tablet 4 Active Active Problems Problem Noted Date Diagnosed Date Iron deficiency 09/29/2021 Hypokalemia 09/21/2021 Gastroenteritis 09/21/2021 Family History Medical History Relation Comments No Known Problems Father Heart Disease Mother Relation Status Comments Father Alive Mother Alive Social History Tobacco Use Types Packs/Day Years Used Date Smoking Tobacco: Former Smokeless Tobacco: Never Tobacco Cessation:Counseling Given: Not Answered Alcohol Use Standard Drinks/Week Comments Yes 0 (1 standard drink = 0.6 oz pur e alcohol) occassionally Comments No Sex and Gender Information Value Date Recorded Sex Assigned at Female 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 Sex Female 5:12 PM CDT Gender Identity Not on file Sexual Orientation Not on file Last Filed Vital Signs Vital Sign Reading Time Taken Comments Blood Pressure 117/82 02/28/2024 10:30 AM CDT Pulse 74 02/28/2024 10:07 AM CDT Temperature 35.6 C (96.1 F) 02/28/2024 10:07 AM CDT Respiratory Rate 16 02/28/2024 10:07 AM CDT Oxygen Saturation 99% 02/28/2024 10:30 AM CDT Inhaled Oxygen Concentration - - Weight 52.2 kg (115 lb) 02/28/2024 10:07 AM CDT Height 157.5 cm (5' 2) 02/28/2024 10:07 AM CDT Body Mass Index 21.03 02/28/2024 10:07 AM CDT Plan of Treatment Health Maintenance Due Date Last Done Comments Annual Physical 1998 Hepatitis C 2013 DTaP, Tdap and Td Vaccines ( 1 - Tdap) 2014 Hepatitis B Vaccines (1 of 3 - 19+ 3-dose series) 2014 HPV Vaccines (1 - 3-dose SCD M series) 2022 COVID-19 Vaccine ( - 2023-2 5 season) 2024 Cervical Cancer Screening Pa p with HPV Testing (Age 30 to 64) Every 5 Years 2025 Cervical Cancer Screening Pa p Smear (Age 30 to 64) Every 3 Years 11/28/2026 11/28/2023, 06/15/2021 Cervical Cancer Screening wi th HPV 11/28/2026 Meningococcal B Vaccine Aged Out No l onger eligible based on patient's age to complete this topic Meningococcal Vaccine Aged Out No lizeth wai eligible based on patient's age to complete this topic Pneumococcal Vaccine: Pediatrics (0 to 5 Years) and At-Risk Patients (6 to 49 Years) Aged Out No longer eligible b ased on patient's age to complete this topic RSV Immunizations Under 20 Months Aged Out No longer eligible b ased on patient's age to complete this topic Additional Health Concerns Infection Onset Date Last 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
== END 2025-06-01 09:30 | disposition home or self-care (01) ==
LOC: CHSIMG 09:33
PROVIDERS: PCP Registered Nurse; Visit Provider Registered Nurse
DX: G43.909 Migraine, unspecified, not intractable, without status migrainosus (principal)
CPT/HCPCS: 70551

== ENCOUNTER 2025-08-20 13:11 | Outpatient (CLI) | payer OTHER, SELFPAY ==
--- NOTE | ~2025-08-20 | US_ITS ---
EXAMINATION: US pelvic complete w TV INDICATION: Pelvic pain. History of endometriosis. Comparison:Ultrasound dated 03/20/2022 TECHNIQUE: Multiple transabdominal and endovaginal sonographic images of the pelvis performed. FINDINGS: The uterus measures 7.5 x 5.1 x 3.4 cm. The endometrial complex measures 8 mm. The right ovary measures 6.8 x 3.4 x 2.6 cm and the left ovary has been surgically removed. There is normal Doppler signal in the right ovary. There is a 1.5 cm complicated cyst of the right ovary. There is a 2.6 cm cm simple cyst. There is free fluid in the pelvis. There are no abnormal masses seen on either side. IMPRESSION: 1. Right ovarian cysts, largest measuring 2.6 cm a benign. 2: Small amount of free fluid in the pelvis, likely physiologic. Reviewed, dictated and finalized at location O. PATIONAL REHABILITATION AIDE
--- OUTSIDE RECORDS SUMMARY | 2025-08-20 14:49 | XMS_ITS | Data Portability ---
Author Organization [facility] Arley Address [address] [place] [address] Care Team Providers Care Automotive Technician Name Role Phone MICHAEL DIMAS Primary Care Provider [phone] Assessment Encounter Date Assessment Date Assessment LastModified by Organization Details LastModified Time 11/28/2023 11/28/2023 Annual gynecological exam performed. Patient will come back in a year unless there are new symptoms. [email or web address] Not available 11/28/2023 10:38:19 Plan of Treatment Reminders Order Date Submit Date Provider Last Modified By Organization Details Last Modified Time Details Appointments None recorded. Lab CBC w/ auto diff 2024 025 [facility] (Lab), [address], [place], [address], 5 22:34:20 TSH, serum or plasma 2024 025 [facility] (Lab), [address] [place], [address], 5 22:34:21 CMP, serum or plasma 2024 025 [facility] (Lab), [address] [place], [address], 5 22:34:21 HbA1c (hemoglobin A1c), blood 2024 025 [facility] (Lab), [address] [place], [address], 5 22:34:24 25-hydroxyv itamin D2 + 25-hydroxyv itamin D3, QN, serum or plasma 2024 025 [facility] (Lab), [address], [place], [address], 5 22:34:23 vitamin B12 + folate, serum or blood 2024 025 [facility] (Lab), [address], [place], [address], 5 22:34:23 lipid panel, blood 2024 025 [facility] (Lab), [address], [place], [address], 5 22:34:21 dhea-sulfat e, serum 2024 025 [facility] (Lab), [address], [place], [address], 5 22:34:20 hormone panel, serum or plasma 2024 025 [facility] (Lab), [address], [place], [address], 5 22:34:23 progesteron e, serum 2024 025 [facility] (Lab), [address], [place], [address], 5 22:34:22 prolactin, serum 2024 025 [facility] (Lab), [address], [place], [address], 5 22:34:22 shbg (sex hormone-bin ding globulin), serum 2024 025 [facility] (Lab), [address], [place], [address], 5 22:34:22 testosteron e free/testos terone total, ratio, serum 2024 025 [facility] (Lab), [address], [place], [address], 5 22:34:24 test, urine 2024 025 [email or web address] [address], [address], [place], [address], 5 17:10:57 test, urine 2023 024 [email or web address] [address], [address], [place], [address], 4 10:52:34 beta-HCG, quantitativ e, serum or plasma 2023 024 [facility] (Lab), [address], [place], [address], 4 05:00:58 Referral None recorded. Procedures None recorded. Surgeries None recorded. Imaging US, transvagina l 2024 025 [email or web address] [address], [place], [address], 5 22:17:18 US, pelvis, complete 2024 025 [email or web address] [id number] [address], [place], [address], 5 11:06:33 US, breast, bilateral, complete 2023 024 [facility], [address], [place] [facility], [place], [address], 4 05:00:58 US, transvagina l 2022 023 [email or web address] [place], [address], [address], [place], [address], 3 00:02:34 Medication Orders None recorded. Patient TargetsNo targets recorded. Patient InstructionsNo instructions recorded. Reason for Referral None Reported. Results Created Date Observation Date Name Description Value Unit Range Abnormal Flag Note LastModifiedBy Organization Detail LastModifiedTime 11/28/19 24 11/28/2023 IMAGE GUIDE D PAP, REFLE X HPV IF ASCUS ONLY image guided Pap, reflex HPV ASCUS only SEE RESULT S BELOW CASE REPOR T: Cytol ogy Gynec ologi nanette Repor t Case: [id number] Autho bonny kaufman Provi genny: Haydee Mcdonough NP Colle cted: 11/28 1647 Order ing Locat ion: [place] Path[facility] Recei diana: 11/29 0850 First Scree n: Kenneth Corea am, CT Speci men: Screshawna fullerg Pap - Image d, Cervi x STATE MENT OF ADEQU ACY: Satis facto ry for evalu ation Trans forma tion zone compo nent prese nt FINAL DIAGN OSIS: Negat rebeka for Intra epith elial Lesio n or Jovi sinha (NIL) . Elect grazyna vogt rosa d by Kenneth Corea am, CT on 2023 at 5:40 AM ----- ----- ----- ----- ----- ----- ----- ----- ----- ----- ----- ----- ----- ----- ----- ----- ----- ---- COMME NT: This speci men was revie wed by a Cytot echno logis t and/o r Patho logis t (as indic ated in this repor t) after evalu ation using the Thinp rep Imagi ng Syste m. CLINI NANETTE INFOR MATIO N: Menst rual Statu s: LMP (if appli cable ): Clini nanette Histo ry/Pr eviou s Pap: Type of Neopl aurora (if appli cable ): Signi fican t Clini nanette Findi ngs: Other Histo ry: Hormo nima (if appli cable ): PAP EDUCA ESTRADA L NOTE: The Pap Test is a scree milan test with an inher ent false negat rebeka rate. Liqui d-bas ed sampl ing may decre ase, but will not elimi cem, false negat rebeka resul ts. A negat rebeka resul t does not precl ude the prese nce and/o r devel opmen t of disea se, since the prese nce of abnor mal cells in the sampl e depen ds on the locat ion of the lesio n and sampl ing techn ique. Antonia nued regul ar scree milan is the best metho d of cance r preve ntion . If repor candis cytol ogic findi ng do not corre late with physi nanette and/o r histo rical findi ngs, furth er inves tigat ion is recom nelli d, as clini candace warra nted. Not Available [facility] (Lab) [address], [place], [address], 12/02/2023 06:44:09 11/28/19 24 11/28/2023 pregn valentín test, urine HCG negati ve Not Available [address], [place], [address], 11/28/2023 10:51:17 01/23/2001/22/2025 CBC W/DIF F WBC 5.9 10'3/ uL 3.5-10 .5 Not Available [facility] (Lab) [address], [place], [address], 01/26/2025 22:34:20 01/23/20 25 01/22/2025 CBC W/DIF F RBC 3.89 10'6/ uL (based on docume nted legal sex) 3.80-5 .20 Not Available [facility] (Lab) [address], [place], [address], 01/26/2025 22:34:20 01/23/20 25 01/22/2025 CBC W/DIF F HGB 12.3 g/dL (based on docume nted legal sex) 11.6-1 5.4 Not Available [facility] (Lab) [address] [facility], [place], [address], 01/26/2025 22:34:20 01/23/20 25 01/22/2025 CBC W/DIF F HCT 36.4 % (based on docume nted legal sex) 34.0-4 5.0 Not Available [facility] (Lab) [address] [facility], [place], [address], 01/26/2025 22:34:20 01/23/20 25 01/22/2025 CBC W/DIF F MCV 93.6 fL 80.0-9 9.0 Not Available [facility] (Lab) [address] [facility], [place], [address], 01/26/2025 22:34:20 01/23/20 25 01/22/2025 CBC W/DIF F MCH 31.6 pg 27.0-3 4.0 Not Available [facility] (Lab) [address] [facility], [place], [address], 01/26/2025 22:34:20 01/23/20 25 01/22/2025 CBC W/DIF F MCHC 33.8 g/dL 32.0-3 5.5 Not Available [facility] (Lab) [address] [facility], [place], [address], 01/26/2025 22:34:20 01/23/20 25 01/22/2025 CBC W/DIF F RDW 11.8 % 11.0-1 5.0 Not Available [facility] (Lab) [address] [facility], [place], [address], 01/26/2025 22:34:20 01/23/20 25 01/22/2025 CBC W/DIF F plt 222 10'3/ uL 150-40 0 Not Available [facility] (Lab) [address] [facility], [place], [address], 01/26/2025 22:34:20 01/23/20 25 01/22/2025 CBC W/DIF F MPV 10.0 fL 8.8-12 .1 Not Available [facility] (Lab) [address] [facility], [place], [address], 01/26/2025 22:34:20 01/23/20 25 01/22/2025 CBC W/DIF F neutrophils 56.9 % 34.0-7 3.0 Not Available [facility] (Lab) [address] [facility], [place], [address], 01/26/2025 22:34:20 01/23/20 25 01/22/2025 CBC W/DIF F lymphocytes 33.3 % 15.0-5 0.0 Not Available [facility] (Lab) [address] [facility], [place], [address], 01/26/2025 22:34:20 01/23/20 25 01/22/2025 CBC W/DIF F monocytes 7.3 % 1.0-15 .0 Not Available [facility] (Lab) [address] [facility], [place], [address], 01/26/2025 22:34:20 01/23/20 25 01/22/2025 CBC W/DIF F eosinophils 1.9 % 0.0-8. 0 Not Available [facility] (Lab) [address] [facility], [place], [address], 01/26/2025 22:34:20 01/23/20 25 01/22/2025 CBC W/DIF F basophils 0.3 % 0.0-2. 0 Not Available [facility] (Lab) [address] [facility], [place], [address], 01/26/2025 22:34:20 01/23/20 25 01/22/2025 CBC W/DIF F immature granulocytes 0.3 % no define d refere nce range Immat ure Granu locyt es (IG) repre sents autom ated enume ratio n of Metam yeloc ytes, Myelo cytes and Promy elocy johnathan when IG is < 5%. Blast s are not inclu ded in IG and repor candis separ ately if prese nt. Not Available [facility] (Lab) [address] [facility], [place], [address], 01/26/2025 22:34:20 01/23/20 25 01/22/2025 CBC W/DIF F absolute neutrophils 3.4 10'3/ uL 1.5-8. 0 Not Available [facility] (Lab) [address] [facility], [place], [address], 01/26/2025 22:34:20 01/23/20 25 01/22/2025 CBC W/DIF F absolute lymphocytes 2.0 10'3/ uL 1.0-4. 0 Not Available [facility] (Lab) [address] [facility], [place], [address], 01/26/2025 22:34:20 01/23/20 25 01/22/2025 CBC W/DIF F absolute monocytes 0.4 10'3/ uL 0.2-1. 0 Not Available [facility] (Lab) [address] [facility], [place], [address], 01/26/2025 22:34:20 01/23/20 25 01/22/2025 CBC W/DIF F absolute eosinophils 0.1 10'3/ uL 0.0-0. 6 Not Available [facility] (Lab) [address] [facility], [place], [address], 01/26/2025 22:34:20 01/23/20 25 01/22/2025 CBC W/DIF F absolute basophils 0.0 10'3/ uL 0.0-0. 3 Not Available [facility] (Lab) [address] , [place], [address], 01/26/2025 22:34:20 01/23/20 25 01/22/2025 CBC W/DIF F absolute immature granulocytes 0.0 10'3/ uL 0.00-0 .10 Refer ence range s for nonbi nary/ inter sex or unspe cifie d gende r patie nts have not been estab lishe d. Pleas e refer to the follo wing table for range s estab lishe d for cisge nder patie nts and evalu ate in the clini nanette luis felipe xt of the indiv idual patie nt: https ://la FID3and book. nm.or g/gen derx Not Available [facility] (Lab) [address] [facility], [place], [address], 01/26/2025 22:34:20 01/23/20 25 01/22/2025 DHEA SULFA TE DHEA-sulfate 368 ug/dL Femal e Range s Age(y ) Range (ug/d L) 10-15 34-28 0 15-20 65-36 8 20-25 148-4 07 25-35 99-34 0 35-45 61-33 7 45-55 35-25 6 55-65 19-20 5 65-75 9-246 > 75 12-15 4 Not Available [facility] (Lab) [address] [facility], [place], [address], 01/26/2025 22:34:20 01/23/20 25 01/22/2025 LIPID PANEL ,AMA (LDL- CALC) total cholesterol 136 mg/dL 0-199 Not Available [facility] (Lab) [address], [place], [address], 01/26/2025 22:34:21 01/23/20 25 01/22/2025 LIPID PANEL ,AMA (LDL- CALC) triglyceride s 56 mg/dL 0-150 NCEP Refer ence Value s for Trigl yceri marianne: Abigail l: <150 mg/dL Borde rline High: 150 - 199 mg/dL High: 200 - 499 mg/dL Very High: >/= 500 mg/dL Not Available [facility] (Lab) [address] [facility], [place], [address], 01/26/2025 22:34:21 01/23/20 25 01/22/2025 LIPID PANEL ,AMA (LDL- CALC) HDL cholesterol 62 mg/dL >40 Not Available [facility] (Lab) [address] [facility], [place], [address], 01/26/2025 22:34:21 01/23/20 25 01/22/2025 LIPID PANEL ,AMA (LDL- CALC) LDL cholesterol 60 mg/dL 0-99 Cutof f value s recom nelli d by the Natgraciela nal Annabella stero l Educa tion Progr am: BACILIO ABLE: Annabella stero l <200 mg/dL LDL <100 mg/dL BORDE RLINE : Annabella stero l 200-2 39 mg/dL LDL 101-1 59 mg/dL HIGHE R RISK: Annabella stero l >240 mg/dL LDL >160 mg/dL , HDL <40 mg/dL Not Available [facility] (Lab) [address] [facility], [place], [address], 01/26/2025 22:34:21 01/23/20 25 01/22/2025 LIPID PANEL ,AMA (LDL- CALC) non-HDL cholesterol 74 mg/dL no refere nce range A reaso nable goal for non-H DL annabella stero l is one that is 30 mg/dL highe r than the LDL annabella stero l goal. Not Available [facility] (Lab) [address] [facility], [place], [address], 01/26/2025 22:34:21 01/23/20 25 01/22/2025 LIPID PANEL ,AMA (LDL- CALC) chol/HDL ratio 2.2 . 0.0-5. 0 On February 08, 2023, [facility] labor rosario bean ed the equat ion for calcu latin g estim ated low-d ensit y lipop rotei n-cho leste rol (LDL- C) from the Fried taty equat ion to the Gege n/Hop rolando equat ion. This new equat ion is only valid for lipid panel s with trigl yceri marianne < 400 mg/dL . Studi es have garretton keely ed that this new equat ion will impro ve the accur acy of LDL-C , espec ially in scena post when LDL-C viral ntrat ions are relat ively low (< 100 mg/dL ), trigl yceri marianne are eleva candis, or patie nt is non-f astin g. Refer ences : - Gege garcia, Paul Hyman, Reynaldo Villa , Mejia Andersen. Indiana maxwell, Conrad Daly, Conrad taylor, Tang Roberts. Mattie valentine , and Oscar Wheeler . 2013. Comp ariso n of a Novel Metho d vs the Fried taty Equat ion for Estim ating Low-D ensit y Lipop rotei n Annabella stero l Level s from the [facility] Lipid Profi le. CATRINA: The Journ al of the Ameri can Medic al Assoc iatio n 310 (19): 2060- . - Ivy yoder V, Yany J, Nam ar A, Paulette M, Al e R, Alondra yoder E, Mattie valentine RS, Liam SR, Gege garcia SS. Fast ing Versu s Nonfa sting and Low-D ensit y Lipop rotei n Annabella stero l Accur acy. Circu latio n. 2017Oct 18;137 (1):1 0-19. Not Available [facility] (Lab) [address] [facility], [place], [address], 01/26/2025 22:34:21 01/23/20 25 01/22/2025 CMP(C OMPRE HENSI VE METAB OLIC PANEL ) sodium 136 mmol/ L 133-14 6 Not Available [facility] (Lab) [address] [place], [address], 01/26/2025 22:34:21 01/23/20 25 01/22/2025 CMP(C OMPRE HENSI VE METAB OLIC PANEL ) potassium 3.9 mmol/ L 3.5-5. 1 Not Available [facility] (Lab) [address] [facility], [place], [address], 01/26/2025 22:34:21 01/23/20 25 01/22/2025 CMP(C OMPRE HENSI VE METAB OLIC PANEL ) chloride 102 mmol/ L 98-107 Not Available [facility] (Lab) [address] [facility], [place], [address], 01/26/2025 22:34:21 01/23/20 25 01/22/2025 CMP(C OMPRE HENSI VE METAB OLIC PANEL ) carbon dioxide 26 mmol/ L 21-31 Not Available [facility] (Lab) [address] [facility], [place], [address], 01/26/2025 22:34:21 01/23/20 25 01/22/2025 CMP(C OMPRE HENSI VE METAB OLIC PANEL ) anion gap 8 mmol/ L 4-13 Not Available [facility] (Lab) [address] [facility], [place], [address], 01/26/2025 22:34:21 01/23/20 25 01/22/2025 CMP(C OMPRE HENSI VE METAB OLIC PANEL ) blood urea nitrogen 8 mg/dL 7-25 Not Available [facility] (Lab) [address] [place], [address], 01/26/2025 22:34:21 01/23/20 25 01/22/2025 CMP(C OMPRE HENSI VE METAB OLIC PANEL ) creatinine 0.61 mg/dL 0.60-1 .30 Not Available [facility] (Lab) [address] [facility], [place], [address], 01/26/2025 22:34:21 01/23/20 25 01/22/2025 CMP(C OMPRE HENSI VE METAB OLIC PANEL ) egfrcr (CKD-epi 2020) >90 mL/mi n/1.7 3_m2 >=60 Not Available [facility] (Lab) [address] [facility], [place], [address], 01/26/2025 22:34:21 01/23/20 25 01/22/2025 CMP(C OMPRE HENSI VE METAB OLIC PANEL ) calcium 9.5 mg/dL 8.3-10 .5 Not Available [facility] (Lab) [address] [facility], [place], [address], 01/26/2025 22:34:21 01/23/20 25 01/22/2025 CMP(C OMPRE HENSI VE METAB OLIC PANEL ) glucose 87 mg/dL 70-100 Not Available [facility] (Lab) [address] [facility], [place], [address], 01/26/2025 22:34:21 01/23/20 25 01/22/2025 CMP(C OMPRE HENSI VE METAB OLIC PANEL ) protein, total 7.6 g/dL 6.4-8. 3 Not Available [facility] (Lab) [address] [facility], [place], [address], 01/26/2025 22:34:21 01/23/20 25 01/22/2025 CMP(C OMPRE HENSI VE METAB OLIC PANEL ) albumin 5.1 g/dL 3.5-5. 0 high Not Available [facility] (Lab) [address] [place], [address], 01/26/2025 22:34:21 01/23/20 25 01/22/2025 CMP(C OMPRE HENSI VE METAB OLIC PANEL ) ALT 8 units /L 9-43 low Not Available [facility] (Lab) [address] [facility], [place], [address], 01/26/2025 22:34:21 01/23/20 25 01/22/2025 CMP(C OMPRE HENSI VE METAB OLIC PANEL ) alkaline phosphatase 46 units /L 34-104 Not Available [facility] (Lab) [address] [facility], [place], [address], 01/26/2025 22:34:21 01/23/20 25 01/22/2025 CMP(C OMPRE HENSI VE METAB OLIC PANEL ) AST 13 units /L 13-39 Not Available [facility] (Lab) [address] [facility], [place], [address], 01/26/2025 22:34:21 01/23/20 25 01/22/2025 CMP(C OMPRE HENSI VE METAB OLIC PANEL ) bilirubin, total 0.5 mg/dL 0.2-1. 2 Not Available [facility] (Lab) [address] [facility], [place], [address], 01/26/2025 22:34:21 01/23/20 25 01/22/2025 TSH, REFLE X FREE T4 TSH 1.17 uIU/m L 0.30-5 .33 Not Available [facility] (Lab) [address] [facility], [place], [address], 01/26/2025 22:34:21 01/23/20 25 01/22/2025 HUMAN SEX HORMO NE SHERYL NG GLOBU GIO sex hormone binding globulin 78.3 nmole s/L 18.2-1 35.5 Not Available [facility] (Lab) [address] [place], [address], 01/26/2025 22:34:22 01/23/20 25 01/22/2025 PROGE STERO NE progesterone 13.70 NG/mL This assay was perfo rmed using [employer] ratio n reage nts and test kits. Value s obtai anita with other assay metho ds or kits canno t be used inter bean eably . Femal e Proge stero ne Range s: Folli cular phase 0.06- 0.89 ng/mL Ovula tion phase 0.12- 12.00 ng/mL Lutea l phase 1.83- 23.90 ng/mL Postm enopa usal <0.05 -0.13 ng/mL Healt hy Pregn ant Women 1st Trime ster 11.0- 44.30 2nd Trime ster 25.40 -83.3 0 3rd Trime ster 58.70 -214. 00 Not Available [facility] (Lab) [address] [facility], [place], [address], 01/26/2025 22:34:22 01/23/20 25 01/22/2025 PROLA CTIN prolactin, total 3.95 NG/mL 4.79-2 3.30 low This assay was perfo rmed using [employer] ratio n reage nts and test kits. Value s obtai anita with other assay metho ds or kits canno t be used inter bean eably . Not Available [facility] (Lab) [address] [facility], [place], [address], 01/26/2025 22:34:22 01/23/20 25 01/22/2025 VITAM IN D, 25-OH (TOTA L D2/D3 ) vitamin D, 25-hydroxy, total 20.3 NG/mL 30.0-1 00.0 low Sugge stive of Defic iency : <20 ng/mL Sugge stive of Insuf ficie ncy: 20-29 ng/mL Sugge stive of Suffi cienc y: 30-10 0 ng/mL Sugge stive of Toxic ity: >150 ng/mL Not Available [facility] (Lab) [address] [facility], [place], [address], 01/26/2025 22:34:23 01/23/20 25 01/22/2025 VITAM IN B12 / FOLAT E PANEL vitamin B12 241 pg/mL 180-91 4 Abigail l Range : 180-9 14 pg/mL . Indet ermin ate Range : 145-1 80 pg/mL . Defic ient Range : <=145 pg/mL . Not Available [facility] (Lab) [address] [facility], [place], [address], 01/26/2025 22:34:23 01/23/20 25 01/22/2025 VITAM IN B12 / FOLAT E PANEL folate, serum 9.5 NG/mL 6.0-20 .0 Not Available [facility] (Lab) [address] [place], [address], 01/26/2025 22:34:23 01/23/20 25 01/22/2025 FSH, LH, ESTRA DIOL estradiol 66.6 pg/mL This assay was perfo rmed using [employer] ratio n reage nts and test kits. Value s obtai anita with other assay metho ds or kits canno t be used inter [facility] . Femal e Estra diol Range s: Folli cular phase 12.4- 233 pg/mL Ovula tion phase 41.0- 398 pg/mL Lutea l phase 22.3- 341 pg/mL Postm enopa usal <5-13 8 pg/mL Healt hy Pregn ant Women 1st Trime ster 154-3 243 pg/mL 2nd Trime ster 1561- 96717 pg/mL 3rd Trime ster 8525- >3000 0 pg/mL Not Available [facility] (Lab) [address] [facility], [place], [address], 01/26/2025 22:34:23 01/23/20 25 01/22/2025 FSH, LH, ESTRA DIOL FSH 7.4 mIU/m L This assay was perfo rmed using [employer] ratio n reage nts and test kits. Value s obtai anita with other assay metho ds or kits canno t be used inter [facility] . Femal es Folli cular : 3.5-1 2.5 mIU/m L Ovula tion: 4.7-2 1.5 mIU/m L Lutea l: 1.7-7 .7 mIU/m L Postm enopa use: 25.8- 134.8 mIU/m L Not Available [facility] (Lab) [address] [facility], [place], [address], 01/26/2025 22:34:23 01/23/20 25 01/22/2025 FSH, LH, ESTRA DIOL LH 13.8 mIU/m L This assay was perfo rmed using [employer] n reage nts and test kits. Value s obtai anita with other assay metho ds or kits canno t be used inter bean eably . Femal es Mid-F ollic ular: 2.4-1 2.6 mIU/m L Mid-C ycle: 14.0- 95.6 mIU/m L Mid-L uteal : 1.0-1 1.4 mIU/m L Postm enopa use: 7.7-5 8.5 mIU/m L Not Available [facility] (Lab) [address] [facility], [place], [address], 01/26/2025 22:34:23 01/23/20 25 01/22/2025 HEMOG LOBIN A1C hemoglobin A1C 5.3 % 4.0-5. 6 The Ameri can Diabe johnathan Assoc iatio n recom mends that a prima ry goal of thera py shoul d be a HBA1C of < 7% and that physi cians shoul d reeva luate the treat ment regim en in patie nts with HBA1C value s consi stent ly > 8%. <5.7% Abigail l 5.7 - 6.4% Incre ased risk for diabe johnathan >=6.5 % Diagn ostic of diabe johnathan <7.0% Goal of thera py >8.0% Actio n sugge sted Not Available [facility] (Lab) [address] [facility], [place], [address], 01/26/2025 22:34:23 01/23/20 25 01/22/2025 TESTO STERO NE, FREE( DIALY SIS) AND TOTAL (LC/M S/MS) testosterone , total 24 NG/dL 2-45 For addit ional noy potter e refer to http: //stella perkinsque stdia gnost ics.c om/fa q/ Total Testo stero neLCM SMSFA Q165 (This link is being provi ded for infothao robledo/ educa estrada l purpo ses only. ) This test was devel oped and its mary jane tical perfo rmanc e betty cteri stics have been deter mined by [employer] [facility] [place], [place]. It has not been clear ed or appro diana by the U.S. Food and Drug Admin istra tion. This assay has been valid ated pursu ant to the CLIA regul ation s and is used for clini nanette purpo ses. Not Available [facility] (Lab) [address], [place], [address], 01/26/2025 22:34:24 01/23/20 25 01/22/2025 TESTO STERO NE, FREE( DIALY SIS) AND TOTAL (LC/M S/MS) testosterone , free 1.8 pg/mL 0.1-6. 4 This test was devel oped and its mary jane tical perfo rmanc e betty cteri stics have been deter mined by [employer] [facility] [place], [place]. It has not been clear ed or appro diana by the U.S. Food and Drug Admin istra tion. This assay has been valid ated pursu ant to the CLIA regul ation s and is used for clini nanette purpo ses. Perfo rming Organ izati on Infor colin n: Site ID: [id number] Name: Parish zaragoza s Jason ls [facility] t[facility] Addre ss: [id number] [facility] [employer]In[employer] [place], [place] Direc tor: Clara Gross MD PhD Not Available [facility] (Lab) [address], [place], [address], 01/26/2025 22:34:24 01/23/20 25 01/22/2025 pregn valentín test, urine HCG negati ve Not Available [address], [place], [address], 01/22/2025 17:10:43 05/03/20 23 05/03/2023 US, trans vagin al No observ ation record ed. consuelo [address], [place], [address], 05/03/2023 09:53:04 05/03/20 23 05/03/2023 US, trans vagin al No observ ation record ed. [email or web address] [address], [place], [address], 05/03/2023 23:27:13 02/06/20 25 02/05/2025 US, trans vagin al No observ ation record ed. consuelo [address], [place], [address], 02/05/2025 17:49:43 02/06/20 25 02/05/2025 US, trans vagin al No observ ation record ed. Lise [address], [place], [address], 03/05/2025 13:57:10 Result Notes None recorded. Problems Name Problem SNOMED Code Status Onset Date Resolution Date Notes Provider Name and Address Organization Details Recorded Time Subchori onic hematoma 821721087 Completed Vandana Martin hl null, [facility] 10:59:01 Migraine 07805141 Completed neuro consult 10/[address] Lai Martin hl null, [facility] 10:59:01 Cystic fibrosis 158122686 Completed CARRIER - FOB Joseluis Martin NEG Vandana Martin hl null, [facility] 10:59:01 Small for gestatio nal age fetus 416206026 Completed EFW 30% to 8% in 1 month Vandana Martin hl null, [facility] 10:59:01 Oliguria 01177012 Completed 2x2 pocket noted Vandana Martin hl null, [facility] 10:59:[address] Concept Completed 201710/13/2020 Encntr for obgyn hospitalist physician exam (general ) (routine ) w/o abn findings ;Practic e ID: 0001 Shilpa adams [facility] 0 12:12:09 Pelvic and perineal pain 884609911 Completed 201710/13/2020 Pelvic and perineal pain;Pra ctice ID: 0001 Shilpa adams [facility] 0 12:13:29 Implanta tion of subcutan eous contrace ptive Completed 201710/13/2020 Insertio n of implanta ble subderma l contrace ptive;Re corded Elsewher e: No Locat ion: [facility] S ource: EHR Count Team Clerk josette: N Estiventi ce ID: 0001 Hussein lable Time: 02:00:00 PM Shilpa Bah [facility] 0 12:12:57 Procedur e Completed 201710/13/2020 Enctr srvlnc implanta ble subderma l contrace ptive;Pr actice ID: 0001 Shilpa Bah [facility] [address] 12:12:[address] Concept Completed 201810/13/2020 Encounte r for surveill ance of other contrace ptives;R ecorded Elsewher e: No Locat ion: [facility] S ource: EHR Count Team Clerk josette: N Practi ce ID: 0001 Hussein lable Time: 02:00:00 PM Shilpa Bah [facility] 0 12:12:17 Pregnanc y test negative 143598809 Completed 201810/13/2020 Encounte r for pregnanc y test, result negative ;Recorde d Elsewher e: No [facility] EHR Count Team Clerk josette: N Practi ce ID: 0001 Hussein lable Time: 02:00:00 PM [facility] 12:13:19 Finding of regulari ty of menstrua l cycle Completed 201810/13/2020 Irregula r bleeding ;Recorde d Elsewher e: No [facility] N Practi ce ID: 0001 Hussein lable Time: 02:00:00 PM [facility] 12:13:04 Broad ligament lacerati on syndrome [id number] Completed 201811/18/2020 Oth noninfla mmatory disord of ovary, fallop and broad ligmt;Pr actice ID: 0001 Alejandra Solano [facility], [facility] 1 09:59:48 Endometr iosis of pelvic peritone um 823942005 Completed 201811/18/2020 Endometr iosis of pelvic peritone um;Pract ice ID: 0001 Alejandra Solano [facility], [facility] 1 09:59:49 Procedur e on genitour inary system Completed 201810/13/2020 Encounte r for surgical aftercar e followin g surgery on the genitour inary system;R ecorded Elsewher e: No [facility]: N Practi ce ID: 0001 Hussein lable Time: 10:00:00 AM Shilpa Bah [facility] 0 12:12:34 Postoper ative care Completed 201810/13/2020 Encounte r for surgical aftercar e followin g surgery on the genitour inary system;R ecorded Elsewher e: No [facility] jos[facility]: N Practi ce ID: 0001 Hussein lable Time: 10:00:00 AM Shilpa Bah [facility] 0 12:13:12 Breast finding Completed 201810/13/2020 Other signs and symptoms in breast;R ecorded Elsewher e: No Locat ion: [facility] S ource: EHR Count Team Clerk josette: N Estiventi ce ID: 0001 Hussein lable Time: 11:30:00 AM Shilpa Bah [facility] 0 12:13:38 Breast lump [id number] Completed 201810/23/2020 Unspecif ied lump in unspecif ied breast;R ecorded Elsewher e: No Locat ion: [facility] S ource: EHR Count Team Clerk josette: N Chela ce ID: 0001 Hussein lable Time: 11:30:00 AM Shilpa Bah [facility] 1 15:16:10 Pregnanc y 68171755 Completed 201911/03/2020 Shilpa Bah [facility] 1 14:47:36 Anemia 297624136 Completed 202009/21/2021 Lilibeth Dacosta [facility] 1 12:43:44 Cyst of ovary 96249405 Completed 202009/21/2021 Lilibeth Dacosta [facility] 1 12:43:46 Notes:Bleeding disorder Problem Notes None recorded. Procedures Surgical History Date Name Laterality Status Provider Name and Address Organization Details Recorded Time 11/28/19 24 Date of Last Pap Smear completed Randi Garrett [facility] 11/28/2023 10:41:59 03/31/20 22 LAPAROSCOPY, DIAGNOSTIC (SURG) completed [facility] 04/01/2022 09:53:48 12/31/19 22 LAPAROSCOPY, DIAGNOSTIC (SURG) completed [facility] 12/31/2021 09:51:31 10/19/19 20 Date of Last Mammogram completed Aparna Palmerman [facility] 01/09/2024 09:38:24 left salpingo-oopho rectomy completed REX Jones [address], [place], [address], [facility] 11/28/2023 11:26:06 Imaging Results None recorded. Procedure Notes None recorded. Medical Equipment None Reported. Allergies Allergen ID Allergen Name Allergen Category Reaction Reaction Severity Criticality Documentation Date Start Date Code Code System Note Provider Name and Address Organization Details Recorded Time 1149 honey bee venom medicatio n Not available Not available Not available 04/15/2020 78746 7 RxNorm Danya Iglesias [facility] 0 10:06:12 1150 hornet venom environme nt Not available Not available Not available 04/15/2020 Danya Iglesias [facility], [facility] 0 10:04:48 1151 nitrofura ntoin medicatio n Not available Not available Not available 04/15/2020 7454 RxNorm Danya Iglesias [facility], [facility] 0 10:05:14 1152 Non-stero idal anti-infl ammatory agent (substanc e) medicatio n Not available Not available Not available 04/15/2020 60056 5008 SNOMED Danya Iglesias [facility] 0 10:05:38 Medications Name Sig Start Date Stop Date Status Note LastModified by Organization Details LastModified Time tetracycl ine 500 mg capsule TAKE 1 CAPSULE BY MOUTH EVERY 6 HOURS 09/23 completed Not Available Not Available Not Available amoxicill in 500 mg capsule TAKE 1 CAPSULE BY MOUTH TWICE DAILY 01/22 completed Not Available Not Available Not Available fluconazo le 150 mg tablet Take one tablet now and 1 tablet 48hrs. later 09/23 completed Not Available Not Available Not Available hydrocodo ne 5 mg-acetam inophen 325 mg tablet Take 1 tablet every 6 hours by oral route. 09/23 completed Not Available Not Available Not Available sucralfat e 1 gram tablet TAKE 1 TABLET BY MOUTH FOUR TIMES DAILY 1 HOUR BEFORE MEALS AND AT BEDTIME 09/23 completed Not Available Not Available Not Available metronida zole 0.75 % (37.5 mg/5 gram) vaginal gel Insert 1 applicat orful every day by vaginal route. 09/23 completed Not Available Not Available Not Available ondansetr on HCl 4 mg tablet 01/22 completed Not Available Not Available Not Available prednison e 20 mg tablet 09/23 completed Not Available Not Available Not Available sertralin e 100 mg tablet active Not Available Not Available Not Available metronida zole 250 mg tablet TAKE 1 TABLET BY MOUTH EVERY 6 HOURS 09/23 completed Not Available Not Available Not Available clobetaso l 0.05 % topical cream 11/28 completed Not Available Not Available Not Available ciproflox acin 500 mg tablet TAKE 1 TABLET BY MOUTH TWICE DAILY 09/23 completed Not Available Not Available Not Available sulfameth oxazole 800 mg-trimet hoprim 160 mg tablet TAKE 1 TABLET BY MOUTH EVERY 12 HOURS 09/23 completed Not Available Not Available Not Available omeprazol e 40 mg capsule,d elayed release 01/22 completed Not Available Not Available Not Available butalbita l-acetami nophen-ca ffeine 50 mg-325 mg-40 mg tablet TAKE 1 TABLET BY MOUTH EVERY 6 HOURS NEEDED FOR HEADACHE 11/28 completed Not Available Not Available Not Available alprazola m 0.5 mg tablet 01/22 completed Not Available Not Available Not Available alprazola m 0.25 mg tablet 11/28 completed Not Available Not Available Not Available potassium chloride ER 20 mEq tablet,ex tended release(p art/cryst ) TAKE 2 TABLETS BY MOUTH DAILY FOR 5 DAYS 09/23 completed Not Available Not Available Not Available meclizine 25 mg tablet Take 1 tablet 3 times a day by oral route. 09/23 completed Not Available Not Available Not Available cephalexi n 500 mg capsule TAKE ONE CAPSULE BY MOUTH EVERY 8 HOURS UNTIL ALL TAKEN 06/11 completed Not Available Not Available Not Available paroxetin e 20 mg tablet 09/23 completed Not Available Not Available Not Available promethaz ine 25 mg tablet 09/23 completed Not Available Not Available Not Available progester one micronize d 200 mg capsule Take 1 capsule every day by oral route for 12 days. 11/28 completed Not Available Not Available Not Available estradiol 2 mg tablet take 1 tablet by oral route every day 04/10 completed Prescrib ed Elsewher e: No [facility] By: eliceo osuna DateTime : 03/16/20 02:00:00 PM Not Available Not Available Not Available ergocalci ferol (vitamin D2) 1,250 mcg (50,000 unit) capsule 01/05 completed Not Available Not Available Not Available ondansetr on 4 mg disintegr ating tablet DISSOLVE 1 TABLET ON THE TONGUE EVERY 8 HOURS 09/23 completed Not Available Not Available Not Available progester one micronize d 100 mg capsule active Not Available Not Available Not Available amoxicill in 875 mg-potass ium clavulana te 125 mg tablet 01/22 completed Not Available Not Available Not Available azithromy robert 500 mg tablet TAKE 1 TABLET BY MOUTH ONCE A DAY FOR 7 DAYS 11/28 completed Not Available Not Available Not Available sertralin e 12/31 completed Not Available Not Available Not Available progester one 09/10 completed Not Available Not Available Not Available alprazola m 12/21 completed Not Available Not Available Not Available 11/11 completed Not Available Not Available Not Available Slow Release Iron 09/23 completed Not Available Not Available Not Available Lexapro 12/21 completed Not Available Not Available Not Available cholecalc iferol (vitamin D3) 1,250 mcg (50,000 unit) capsule Take 1 capsule every week by oral route. 2024 active Not Available Not Available Not Avai lable Nexplanon 68 mg subdermal implant 10/07 completed Prescrib ed Elsewher e: Yes [facility] By: jefe z Andrew ashraf DateTime : 11/03/19 18 02:00:00 PM Not Available Not Available Not Available Vitals Date Recorded Body height Body mass index (BMI) Body weight Systolic And Diastolic Provider Name and Address Organization Details Last Updated DateTime 11/28/2023 157.48 cm 18.5 kg/m2 99267.27 g 105/71 mm[Hg] Randi Garrett [facility] 11/28/2023 10:39:37 Date Recorded Body height Body mass index (BMI) Body weight Systolic And Diastolic Provider Name and Address Organization Details Last Updated DateTime 01/22/2025 157.48 cm 19.8 kg/m2 95676.98 g 105/68 mm[Hg] BERNARD Bangura [facility] 01/22/2025 16:23:26 Date Recorded Body height Body mass index (BMI) Body weight Systolic And Diastolic Provider Name and Address Organization Details Last Updated DateTime 05/12/2023 157.48 cm 19.8 kg/m2 53460.98 g 112/63 mm[Hg] Luly Carlos [facility] 05/12/2023 14:41:03 Social History Question Answer Notes LastModified by Organizat ion Details LastModified Time Tobacco Smoking Status Never Smoker [facility] 09/23/2022 11:04:43 Do You Have An Advance Directive? No [email or web address] Information n ot available 01/22/2025 If You Are , What Was Your Level Of Alcohol Consumption Prior To ? None [email or web address] Information not available 01/22/2025 Are You Blind Or Do You Have Difficulty Seeing? No [email or web address] Information n ot available 11/28/2023 What Is Your Level Of Caffeine Consumption? None [email or web address] Information not available 01/22/2025 In The 14 Days Before Symptom Onset, Have You Had Close Contact With A Laboratory-confirm ed COVID-19 While That Case Was Ill? No [email or web address] Information n ot available 11/28/2023 In The 14 Days Before Symptom Onset, Have You Had Close Contact With A Person Who Is Under Investigation For COVID-19 While That Person Was Ill? No [email or web address] Information not available 11/28/2023 Have You Been To An Area Known To Be High Risk For COVID-19? No [email or web address] Information not available 11/28/2023 Are You Deaf Or Do You Have Serious Difficulty Hearing? No [email or web address] Information not available 11/28/2023 What Type Of Diet Are You Following? REGULAR [email or web address] Information n ot available 11/28/2023 What Is The Highest Grade Or Level Of School You Have Completed Or The Highest Degree You Have Received? [id number] [email or web address] Information not available 01/22/2025 What Was The Date Of Your Most Recent Tobacco Screening? 11/28/2023 [email or web address] Information not available 11/28/2023 Do You Use Your Seat Belt Or Car Seat Routinely? Yes [email or web address] Information not available 11/28/2023 Are You Sexually Active? Yes [email or web address] Information not available 01/22/2025 Do You Have Smoke And Carbon Monoxide Detectors In Your Home? Yes [email or web address] Information not available 11/28/2023 How Much Tobacco Do You Smoke? No [email or web address] Information not available 08/29/2020 Do You Use Sunscreen Routinely? Yes [email or web address] Information not available 11/28/2023 Has Tobacco Cessation Counseling Been Provided? No [email or web address] Information not available 01/22/2025 Do You Have Difficulty Walking Or Climbing Stairs? No [email or web address] Information not available 11/28/2023 Sex: Unknown Functional Status Question Answer Note LastModified by Organizat ion Details LastModified Time Do you use any illicit or recreational drugs? No Information not available 01/22/2025 What is your level of alcohol consumption? None [email or web address] Information not available 11/18/2020 Do you or have you ever used smokeless tobacco? Never used smokeless tobacco [email or web address] Information not available 09/23/2022 Are you currently employed? No [email or web address] Information not available 01/22/2025 Are you able to walk independently without assistance or assistive devices? YESWOREST [email or web address] Information not available 11/28/2023 Are you able to care for yourself independently? Yes Information not available 11/28/2023 Do you have difficulty dressing, bathing, grooming, or toileting? No [email or web address] Information not available 11/28/2023 Do you or have you ever used e-cigarettes or vape? Never used electronic cigarettes [email or web address] Information not available 09/23/2022 What is your exercise level? Occasional walking [id number] Information not available 08/19/2020 Mental Status Question Answer Note LastModified by Organization D etails LastModified Time Do you feel stressed (tense, restless, nervous, or anxious, or unable to sleep at night)? [id number] [email or web address] Information not available 11/28/2023 Family History Relationship Description Onset Age of this Age Resolved Age Notes LastModified by Organization Details LastModified Time Father No current problems or disability [email or web address] Not available 09/10 15:39:55 Mother No current problems or disability [email or web address] Not available 09/10 15:39:55 Medical History Condition Response Allergies (Food, seasonal, environmental ) N Other Y Breast Cancer N Drug/Latex Allergies/Reactions Y Blood Transfusion N Dermatologic Disorders N Lung Disease N Defects or Inherited Disease N Breast Problem N Gestational Diabetes N Hematologic disorders N Anesthesia Complications N History of STI N Deep Vein Thrombosis N Polycystic ovary syndrome N Anxiety Disorder Y Autoimmune disease N Arthritis N Infertility N Polyps N Acid Reflux (GERD) Y History of abnormal pap N Cancer N Stroke N Varicosities N Neurologic/Epilepsy N Endometriosis Y High Cholesterol N Headaches Y Fibromyalgia N Kidney Disease N Heart Problems N Kidney or Bladder Problems N Thyroid Problems N GI Problems N Eating Disorder N Anemia Y Art (IVF or FET) N Psychiatric Illness N Ovarian Cancer N Diabetes N Pulmonary (TB, Asthma) N Hepatitis/Liver Disease N Eczema N Urinary Tract Infection N Abuse/Domestic Violence N Asthma N Trauma/Violence N Depression/ depression Y Heart Disease N Pre-Eclampsia N Hypertension N Osteoporosis N Thrombophilias N Gynecological History Statement/Question Response Abnormal Pap N Flow Heavy Date of Last Mammogram 10/19/2019 Date of LMP 01/07/2025 On BCP's at Conception? N STIs/STDs N HPV Vaccine Duration of Flow (days) 6 Current Control Method None Sexually Active? Y Date of DEXA bone scan Date of Last Pap Smear 11/28/2023 Sexual Problems? N LMP Definite Obstetrics History GPAL:G 4 P 2 0 2 2 Type Value Full Term 2 Spontaneous 2 Living 2 Total 4 Past Encounters Encounter ID Performer Location Encounter Start Date Encounter Closed Date Diagnosis/Indication Diagnosis SNOMED-CT Code Diagnosis ICD10 Code Diagnosis IMO Codes Diagnosis Note [id number] Edil Pichardo MD [facility] [address],[place] [address] 04/14/2020 14:49:48 04/14/2020 15:49:31 Threatened miscarriage 16811522 O20.0 Z3A.11 [id number] Beth Wade [facility] [address],[place] [address] 04/16/2020 15:30:54 04/16/2020 17:00:52 Gynecologic examination 82712857 Z01.419 test positive 433529780 Z32.01 Risk factors addressed: Tobacco Cessation, Safe Sexual Practices, environmen minda, work hazards, travel restrictio ns, seat belt use.Eat a health well balanced diet, avoid alcohol, tobacco, and street drugs. Engage in daily low impact exercise, avoid temperatur e extremes, and cat, rodent, and bird feces.Avoi d travel to areas where zika virus is a concern.Fi rst look offered to patient. First look accepted by patient and will be scheduled. Sequential Screen handout given and discussed with patient.Ch ildbirth classes recommende d.New OB sheet given. If previous , counseling .Pt verbalizes that she understand s the importance of above instructio ns.All questions were answered. Patient reminded to have annual well woman examinatio n and address [facility] . [id number] Edil Pichardo MD [facility] [address],[facility] [place] [address] 04/28/2020 14:06:18 04/28/2020 15:39:43 screening 399036600 Z36.82 Z36.0 Z36.89 Routine an tenatal care 635151186 Z34.81 [id number] Edil Pichardo MD [facility] [address],[facility] [place] [address] 04/28/2020 14:06:59 04/28/2020 14:38:14 screening 659426765 Z36.82 Z36.0 Z36.89 [id number] Edil Pichardo MD [facility] [address],[place] [address] 05/19/2020 15:07:48 05/21/2020 03:49:29 [id number] [address],[place] [address] 05/19/2020 15:08:52 05/19/2020 16:51:21 Routine care 577092677 Z34.92 [id number] Edil Pichardo MD [facility] [address],[place] [address] 06/16/2020 11:29:55 06/16/2020 12:43:20 screening for malformation 498478452 Z36.3 [id number] Edil Pichardo MD [facility] [address],[place] [address] 06/16/2020 13:29:39 06/16/2020 14:02:30 Routine care 102300528 Z34.81 [id number] Edil Pichardo MD [facility] [address],[place] [address] 07/21/2020 14:46:41 07/21/2020 15:15:03 Routine care 140176790 Z34.81 [id number] [facility] [address],[place] [address] 08/13/2020 15:58:46 08/14/2020 10:37:00 Routine care 921632311 Z34.92 [id number] Radha Zhang [facility] [address],[place] [address] 08/29/2020 09:35:05 08/29/2020 10:57:02 Routine care 018104209 Z34.93 [id number] Beth Wade [facility] [address],[place] [address] 09/10/2020 15:13:39 09/14/2020 12:27:24 Routine care 441294882 Z34.92 Exposure to lead 7925868 509 7524884 Z77.011 [id number] MD Jamil Castillo [address],[place] [address] 09/10/2020 15:14:46 09/10/2020 16:46:53 Uterine size for dates discrepancy 064574497 O26.843 Z3A.32 [id number] [facility] [address],[place] [address] 09/24/2020 15:13:46 09/24/2020 15:36:30 Routine care 499999975 Z34.92 [id number] MD Jamil Castillo [address],[place] [address] 10/03/2020 12:30:42 10/03/2020 14:12:15 Small for gestational age fetus 153961852 O36.5930 Z3A.35 [id number] [facility] [address],[place] [address] 10/07/2020 11:06:30 10/07/2020 11:57:32 Routine care 245457109 Z34.92 [id number] MD Jamil Castillo [address],[place] [address] 10/07/2020 11:07:32 10/07/2020 12:05:57 Small for gestational age fetus 306559078 O36.5930 Z3A.36 [id number] MD Jamil Castillo [address],[place] [address] 10/07/2020 11:07:49 10/07/2020 12:48:28 Small for gestational age fetus 528396097 O36.5999 [id number] [facility] [address],[place] [address] 10/14/2020 09:21:53 10/14/2020 11:02:41 Routine care 020793433 Z34.92 [id number] MD Jamil Castillo [address],[place] [address] 10/14/2020 09:20:38 10/14/2020 18:14:53 Small for gestational age fetus 992921131 O36.5930 Z3A.37 [id number] Edil Pichardo MD [facility] [address],[place] [address] 10/14/2020 09:21:14 10/14/2020 11:23:56 Small for gestational age fetus 764343562 O36.5930 Z3A.37 [id number] Edil Pichardo MD [facility] [address],[place] [address] 10/21/2020 13:54:29 10/21/2020 14:49:47 Small for gestational age fetus 733544694 O36.5930 [id number] Edil Pichardo MD [facility] [address],[place] [address] 10/24/2020 10:06:39 02/23/2021 13:48:00 Small for gestational age fetus 269692186 O36.5999 [id number] Beth Wade [facility] [address],[place] [address] 11/20/2020 14:08:44 11/20/2020 15:07:36 state 80734221 Z39.2 Continue to watch for signs/symp toms of post depression . Return one year from last pap smear for a well woman exam. Plans condoms for now. Patient received above instructio ns, and questions have been answered. If you have any questions please call or respond to this email. Patient was made aware of the patient portal and may obtain a paper copy of today's plan if desired [id number] Beth Wade CNM [facility] [address],[place] [address] 06/15/2021 10:44:26 06/16/2021 22:47:06 Mastodynia of left breast 9713429249 5182655 N64.4 1-2 o'clock tenderness . Fibrocysti c. No distinct lump. Diagnostic u/s ordered. If nl will rtc in 6 weeks. If abnormal imaging will schedule with specialist dimitris If nl imaging but area of concern persists at 6 week f/u will need to see specialist . Pt will call us 2 days after imaging to ensure we have received the results. Fibrocysti c change of left breast [id number] 5422256 N60.12 Gynecologi c examination 71332376 Z01.419 Take Calcium with Vitamin D 1200mg daily if not receiving in daily diet. It is strongly advised to have an annual flu shot and up can obtain at most pharmacies . If you have not had a TDap shot in the last 10 years you should obtain one as well. Discussed with patient & provided with informatio n regarding Gardisil vaccine to prevent the 4 strains for HPV that cause cervical cancer if under age 26. Encourage safe sexual practices, to use condoms and limit partners if not already in a monogamous relationsh ip. Do monthly self breast exams. Have mammogram yearly or every other year depending on family history. BRCA testing is now available for patients with strong genetic history of female cancer. If interested contact the office. Engage in daily exercise of low impact aerobic exercise 45-60 minutes 4-5 times weekly. Avoid tobacco and illicit drugs as well as using moderation with alcohol intake less than 1-2 8 oz beverages daily. This lifestyle behavior pattern will lead to less health conditions and longer life span. If BMI greater than 25 weight watchers or dietary consult advised. Patient received above instructio ns, and questions have been answered. If you have any questions please call or respond to this email. Patient was made aware of the patient portal and may obtain a paper copy of today's plan if desired. [id number] Edil Pichardo MD [facility] [address],[place] [address] 11/11/2021 14:10:50 11/11/2021 14:45:38 Pain in pelvis 72916118 R10.2 [id number] Edil Pichardo MD [facility] [address] [place] [address] 11/25/2021 17:42:54 11/25/2021 18:47:24 Pain in pelvis 33058969 R10.2 [id number] Edil Pichardo MD [facility] [address] [place] [address] 11/27/2021 13:50:29 11/27/2021 14:52:30 Pain in pelvis 73233230 R10.2 this patient is a 26-year-ol d female with pelvic pain and some free fluid in the pelvis with septated lesions, a hemorrhagi c cyst, she has history of endometrio sis that was confirmed with surgical biopsy. She has pain with intercours e. She is severely painful menses. She has pain with movement. We discussed treatment options. She needs direct visualizat ion of these intra pelvic lesions and free fluid to determine the etiology of this unusual finding. We agreed to perform diagnostic laparoscop y. She has had diagnostic laparoscop y in the past. She understand s the procedure. We spent 25 minutes face-to-fa ce and made a decision to perform surgery. Cyst of ovary [id number] N 83.209 Endometrio sis of pelvis 97195422 N80.3 Dyspareunia 96078463 N94 .10 Fluid in p eritoneal cavity 349508734 R18.8 [id number] Edil Pichardo MD [facility] [address] [address] 12/21/2021 15:11:07 12/21/2021 16:08:50 Pain in pelvis 48489116 R10.2 This patient is a 26-year-ol d female with pelvic pain. We have agreed to perform diagnostic laparoscop y. She has a history of endometrio sis. She understand s the risks, benefits, and alternativ es. She has completed the informed consent process and is ready to proceed. [id number] Edil Pichardo MD [facility] [address],[place] [address] 12/31/2021 10:13:53 12/31/2021 10:15:30 [id number] Edil Pichardo MD [facility] [address] [address] 01/06/2022 15:19:40 01/06/2022 16:04:12 Postoperative care [id number] Z48.89 this patient is a 26-year-ol d female presents for postoperat rebeka follow-up. She had a hemorrhagi c corpus luteum cyst on left ovary that was adhered to left pelvic sidewall. It was dissected off the left pelvic sidewall the cystectomy was performed. She is recovering slowly. She continues to have moderate pain. She is moving slowly and concerned about continued pain. She should improved quickly from this point. We agreed to follow-up as needed. We reviewed the pathology report of the operative report. [id number] MD Jamil Castillo [address] [address] 02/10/2022 14:04:03 02/10/2022 14:54:49 Vertigo [id number] R42 Pain in pelvis 93307632 R10.2 Abnormal u terine bleeding 4324506361 9100 N93.9 Nausea and vomiting 1693 2000 R11.2 Photophobia 532915498 H5 3.149 this patient is a 27-year-ol d female presents for pelvic discomfort , nausea vomiting, diarrhea, neurologic symptoms. Patient has the sensation that the room is spinning. It is worse with position changes of her head. She has some associated nausea. She also has some associated sensitivit y to light. She also states that she has some sensitiviy to sound. High-frequ ency sounds are very irritating . She denies any fevers and chills. She denies any discharge from the ears. She has any bleeding from the ears. She denies any vision changes. Denies any limb weakness. She reports diminished hearing in her left ear. She has had irregular bleeding lately. We will obtain and an ENT consultati on. She has a GI consult pending. We will evaluate her pelvic discomfort the/chelly g sensation the pelvis intermitte nt with movement. With pelvic ultrasound return visit. She has had some irregular bleeding lately. She is down approximat ruba 11% of her body weight. She is 99 lb. This may affect her menstrual cycle. [id number] Edil Pichardo MD [facility] [address] [address] 02/17/2022 17:21:05 02/18/2022 14:08:54 Cyst of right ovary [id number] 3794644 N83.291 [id number] Edil Pichardo MD [facility] [address] [address] 03/03/2022 16:49:50 03/04/2022 10:02:50 Pain in pelvis 73889449 R10.2 Cyst of left ovary 08711 41121 9361705 N83.202 It is a 27-year-ol d female who presents for ultrasound follow-up. She has a 4.5 cm hemorrhagi c ovarian cyst. Patient has a history of ovarian cyst. There recurrent infected. She has longstandi ng pelvic pain. The ovarian cyst and pelvic pain is been exclusivel y on the left side. we spent over 35 minutes face-to-fa ce. We discussed treatment options for her recurrent pelvic pain and ovarian cyst. Talked about all her medical therapies. Talked about the risks and benefits of inhibition of ovulation And the hormonal methods by which those were inhibited. We discussed surgical remedies. We discussed observatio n patient is santain g left oophorecto my. She understand s that her fertility may be diminished by removing the left ovary. She is thinking of giving up her fertility altogether . She is uncertain if she wants a 3rd child. Will likely proceed with left oophorecto my. She will contact us to pelvis if she would like to proceed. This will be laparoscop ic left oophorecto my. [id number] Edil Pichardo MD [facility] [address] [address] 04/01/2022 09:43:54 04/01/2022 12:20:11 [id number] Edil Pichardo MD [facility] [address] [address] 04/07/2022 15:29:37 04/08/2022 14:23:28 Postoperative care [id number] Z48.89 This patient is a 27-year-ol d female presents for postop follow-up. She is 1 week postop from a left salpingo-o ophorectom y, laparoscop ic. She has no complaints . She does have some modest postoperat rebeka pain. We talked about her badly scarred occluded tubes. They were clubbed at the end. They are likely not functional . She lost the left tube along with the ovary. The tube was clubbed and densely adherent to the ovary. Remaining tuve may not be patent. I believe it is unlikely that is patent. We agreed to follow-up as needed. I informed that we could check the tube in the future if she is trying to get . [id number] Edil Pichardo MD [facility] [address],[facility] [place] [address] 07/08/2022 11:07:44 07/08/2022 12:41:33 Abnormal uterine bleeding [id number] 9100 N93.9 test positive 820108654 Z32.01 Dyspareunia 06523932 N94 .10 Vaginal discharge 332165 006 N89.8 [id number] Edil Pichardo MD [facility] [address],[place] [address] 07/15/2022 16:27:39 07/15/2022 17:49:34 Pain in pelvis 37851971 R10.2 [id number] Edil Pichardo MD [facility] [address],[place] [address] 07/23/2022 10:29:14 07/23/2022 12:31:59 Abnormal uterine bleeding 0248190519 9100 N93.9 Cyst of ovary 54437008 N 83.209 this patient is a 27-year-ol d female presents for discussion of pelvic pain, ovarian cyst, irregular bleeding. We spent 40 minutes face-to-fa ce. More than 50% was counseling . Talked 3 complex topics. Talked about the menstrualu cycle, ovulation induction, we talked about irregular bleeding, anovulator y bleeding, ovarian cysts. The etiology, natural history, treatment of ovarian cyst. We talked about her ultrasound results. We reviewed ultrasound results together. She has some significan t findings on her pelvic ultrasound . She got a prominent follicle and a ovarian cyst that appears diet contain blood. She has some pain. Talked about her pain. Is tolerant this time. Talked about regulating her menses. We agreed cyclic progestero ne and repeat ultrasound . She will return in 2 months and we will discuss irregular bleeding and ovarian cysts, and review ultrason. [id number] Edil Pichardo MD [facility] [address],[facility] [place] [address] 09/22/2022 10:49:13 09/23/2022 14:09:46 Cyst of right ovary [id number] 5480407 N83.291 [id number] Edil Pichardo MD [facility] [address],[place] [address] 09/23/2022 11:04:35 09/23/2022 13:10:32 Cyst of ovary 80283336 N83.209 Pain in pelvis 53842394 R10.2 Endometrio sis of pelvis 29791583 N80.30 [id number] REX Jones [facility] [address],[place] [address] 12/31/2022 09:58:59 01/03/2023 17:23:11 Unintentional weight loss 155949919 R63.4 Today we reviewed a detailed history. We talked about her recent unintentio nal weight loss. Discussed her exercise and eating habits. Denies any food restrictin g or symptoms of an ED. Eating 3 meals a day, incorporat ing protein.Sh e does do a large amount of cardiovasc ular exercise per day, dancing. Does not incorporat e strength exercise.E ncouraged to start incorporat ing strength training (light dumbells, resistance bands, etc)We talked about adequate protein intakeEnco uraged to schedule with shuttle route vehicle operator, appointmen t scheduledC omprehensi ve fasting labs orderedRTC to review labs and discuss next steps Time spent in visit is a total of 40 mins with at least 50% of visit consisting of counseling and review of plan of care. [id number] Edil Pichardo MD [facility] [address],[place] [address] 01/06/2023 12:25:27 01/06/2023 14:20:43 Cyst of right ovary [id number] 0433156 N83.291 [id number] Edil Pichardo MD [facility] [address],[place] [address] 01/17/2023 11:02:07 01/18/2023 10:03:55 Cyst of ovary 92196583 N83.209 this patient is a 27-year-ol d female presents for follow-up on ovarian cyst and pelvic pain. Her pain is much improved. Almost resolved. In her cysts continue to get smaller. Both cysts are still present but smaller. The complex cyst needs follow-up. The simple cyst remains also though. We agreed to repeat ultrasound 3 months. Follow the complex cyst resolution . We spent more than 20 minutes face-to-fa ce. More than 50% was counseling . We talked about ovarian cyst. Talked about follow-up. We talked about her pelvic pain. Talked about childbeari ng and cure of her pelvic pain. Pain in pelvis 15303392 R10.2 [id number] REX Jones [facility] [address],[place] [address] 02/04/2023 11:36:54 02/04/2023 14:13:32 Unintentional weight loss 063653563 R63.4 reviewed labs - vitamin D3 supplement s jb has been increasing her protein intake, increase calorie intake, and strength trainingre commend endocrinol ogist referral for additional labs/consu lt for unintentio nal weight lossshe has not met with the shuttle route vehicle operator yet, she will scheduleco ntinue strength training, protein increaseRT C in 4-6 weeks Time spent in visit is a total of 20 mins with at least 50% of visit consisting of counseling and review of plan of care. [id number] REX Jones [facility] [address],[place] [address] 03/25/2023 10:44:25 03/28/2023 16:56:50 Unintentional weight loss 686597263 R63.4 she has met with the shuttle route vehicle operator, increasing protein intakeshe has an appointmen t with endocrine scheduled, as well as she is following with PCP on BS logrecomme nd she continue to f/u with shuttle route vehicle operator, PCP, and endocrine for further evaluation continue strength exercisesP recautions discussedR TC as needed Time spent in visit is a total of 20 mins with at least 50% of visit consisting of counseling and review of plan of care. [id number] Edil Pichardo MD [facility] [address] [address] 05/03/2023 09:21:31 05/03/2023 10:00:32 Pain in pelvis 45657129 R10.2 N83.299 [id number] Edil Pichardo MD [facility] [address] [address] 05/12/2023 14:12:44 05/12/2023 16:39:35 Cyst of ovary 73510459 N83.209 patient is a 28-year-ol d female who presents for follow-up on ultrasound . She has a cyst. It is basically simple. There is another cyst within the cyst. There is no worrisome blood flow. She does have some pain with intercours e. We agreed that her pelvic pain could be observed. we spent more than 20 minutes face-to-fa ce. More than 50% was counseling . We agreed we could observe the pelvic pain. She has plans to get . She has had multiple surgeries for pelvic pain. Talked about possibly a pelvic pain specialist . At this time her pelvic pain does not seem to be too bad. We talked also about hysterecto my. She will follow-up as needed. [id number] REX Jones [facility] [address] [address] 11/28/2023 09:58:03 11/28/2023 11:58:51 Amenorrhea 33289585 N91.2 Gynecologi c examination 69524239 Z01.419 WWEpap updateddec lined STI screeningr outine labs UTD/PCP Take Calcium with Vitamin D daily if not receiving in daily diet.It is strongly advised to have an annual flu shot and up can obtain at most pharmacies . If you have not had a TDap shot in the last 10 years you should obtain one as well. Discussed with patient & provided with informatio n regarding Gardisil vaccine to prevent the 4 strains for HPV that cause cervical cancer if under age 26.Encoura ge safe sexual practices, to use condoms and limit partners if not already in a monogamous relationsh ip.Do monthly self breast exams. Engage in daily exercise of low impact aerobic exercise 45-60 minutes 4-5 times weekly. Avoid tobacco and illicit drugs. This lifestyle behavior pattern will lead to less health conditions and longer life span. If BMI greater than 25 dietary consult advised.Mohinder garber received above instructio ns, and questions have been answered. If you have any questions please call or respond to this email. Patient was made aware of the patient portal and may obtain a paper copy of today's plan if desired. Pain of breast 49458548 N64.4 will update bilateral breast u/s - order given to pt History of endometriosis [id number] 3997834 Z87.42 considerin g TTCoffered JANINE referral given hxcan send in referral if pt decides to pursue this Reproducti ve care management 589395111 Z31.9 [id number] REX Jones [facility] [address] [address] 01/22/2025 16:07:49 01/23/2025 13:37:16 Unintentional weight loss 173079168 R63.4 Labs orderedDis cussed her current caloric intake is below what is recommende d to maintain her current weight or gain weight. Calorie recommenda tions discussed, reviewed adequate protein intake, recommende d shuttle route vehicle operator consult as well Irregular periods 230154 07 N92.6 labs orderedpel kp u/s orderedRTC to review labs and discuss recommenda tions Time spent in visit is a total of mins with at least 50% of visit consisting of counseling and review of plan of care. Abnormal u terine bleeding 9755183171 9100 N93.9 Screening procedure 2012 5006 Z13.9 [id number] Edil Pichardo MD [facility] [address] [address] 02/05/2025 16:50:46 02/05/2025 17:43:49 Irregular periods 49551584 N92.6 [id number] Health Concerns Section Related Observation LastModified by Organization Detai ls LastModified Time None Recorded Concern Status LastModified by Organization Details LastModified Time None Recorded Advance Directives Directive N: Payers Insurance Date Sequence Insurance Name Policy Number Policy Walden Covered Member ID Walden Member ID Guarantor Name 02/14/2025 1 [facility] - DOS ON OR AFTER 21 (MEDICAID REPLACEMENT - HMO) Petty Soriano [id number] Petty Soriano 11/23/2023 1 [facility] ([id number]) [id number] Joseluis Soriano [id number] Petty Soriano 02/05/2025 1 [place] [employer] [employer] [place] [employer] Petty Soriano [id number] Petty Bo 02/05/2025 [facility] (MEDICAID HMO) Petty Bo [id number] Petty Bo Notes Date Note Type Note Provider Name and Address Organization Details Recorded Time 3 text/html patient is a 28-year-old female who presents for follow-up on ultrasound. She has a cyst. It is basically simple. There is another cyst within the cyst. There is no worrisome blood flow. She does have some pain with intercourse. We agreed that her pelvic pain could be observed. we spent more than 20 minutes mero-br-oupn. More than 50% was counseling. We agreed we could observe the pelvic pain. She has plans to get . She has had multiple surgeries for pelvic pain. Talked about possibly a pelvic pain specialist. At this time her pelvic pain does not seem to be too bad. We talked also about hysterectomy. She will follow-up as needed. Edil Pichardo MD [address], [place], [address], [facility] 05/12/2023 15:51:06 4 text/html Annual GYNReported by PatientGenitourinary symptomsFor menstrual cycle, patient reportsnormal menses. For urinary symptoms, patient reportsno hematuriaandno incontinence. For vulva, patient reportsno genital lesion. For vagina, patient reportsnormal vaginal discharge.Breast symptomsFor breast, patient reportsno breast pain,no breast lump, andno nipple discharge.ContraceptionFo r current contraception, patient reportsbirth control not practiced.Endocrine symptomsFor sexual complaints, patient reportsno sexual complaints,no pain during intercourse, andnormal libido. For menopausal symptoms, patient reportsno menopausal symptomsandnormal vaginal lubrication.Psychological symptomsFor psychological symptoms, patient reportsno depression,no anxiety, andno pmdd.Preventative measuresFor preventive measures, patient reportsencourage self breast examination,encourage regular exercise,encourage no tobacco use, andencourage regular mammograms starting age 40.WWElast pap 05/2021 - normalLMP 10/12, would like UPT/bhcg done today. Has noticed significant breast tenderness x 2 weeks, bilateral, hurts to wear a bra. Denies any recent injuries, no caffeine intakeh/o endometriosis, with diagnostic laps x 3h/o left salpingectomy-oophorectom y, with possible occlusion of right tube per post op note REX Jones [address], [place], [address], [facility] 11/28/2023 11:32:12 5 text/html 29yo [id number] with complaints of irregular periods and weight lossPeriods twice per month for the past 3 months. Happening about 2 weeks apart, lasting 5-7 days, flow varies.Pt states she has been loosing weight despite efforts to gain weightshe denies excessive or frequent exerciseshe is eating 900-1200 calories per daydenies decreased appetite, denies restrictive eating, denies binging or purgingSA with male partner, condoms/withdrawal for BC REX Jones [address], [place], [address], [facility] 01/23/2025 10:33:52 OBGyn Episode Ob Episode Information Episode Created Date Number of Fetuses Patient Bloodtype Patient rh Status Prepregnancy Weight lbs Domestic Partner Domestic Partner Phone Father Name Poultry Hatchery Manager Status 04/15/20 20 1 CLOSED Fetus Data First Name Last Name Admitted to NICU Weight (g) Sex Living Outcome Pediatric Complications Fetus ID Race Codes Race Delivery Type 3146.56 7704 Full Term 2631 Vaginal Delivery Miky Calculation Initial Miky Date Initial Exam Date Initial Exam Provider Initial Ultrasound Date Last Menstrual Period Date Ultra Sound Weeks Gestation 0 Eighteen To Twenty Week Miky Update Ultra Sound Date Fundal Height At Umbil Quickening Date Ultra Sound Latest Weeks Gestation Final Miky Confirmed By Final Miky Confirmed Date Final Miky Date Ultra Sound Latest Days Gestation 0 0 Menstrual History Last Menstrual Date Menses Monthly On Bcp Conception Prior Menses Frequency Hcg Plus Date Menarche Onset Age Delivery Information Delivery Date Delivery Type Labor Anesthesia Weeks Gestation Incision Type Labor Labor Length Hrs Delivered By Post Complications Tubal Sterilization Discharge Date Comments 6 39 Son - cord wrapped around neck Discharge Information Feeding Method Contraceptive Method Maternal HG B and HCT Levels Ob Episode Information Episode Created Date Number of Fetuses Patient Bloodtype Patient rh Status Prepregnancy Weight lbs Domestic Partner Domestic Partner Phone Father Name Poultry Hatchery Manager Status 04/15/20 20 1 CLOSED Fetus Data First Name Last Name Admitted to NICU Weight (g) Sex Living Outcome Pediatric Complications Fetus ID Race Codes Race Delivery Type , Spontane ous 2632 Miky Calculation Initial Miky Date Initial Exam Date Initial Exam Provider Initial Ultrasound Date Last Menstrual Period Date Ultra Sound Weeks Gestation 0 Eighteen To Twenty Week Miky Update Ultra Sound Date Fundal Height At Umbil Quickening Date Ultra Sound Latest Weeks Gestation Final Miky Confirmed By Final Miky Confirmed Date Final Miky Date Ultra Sound Latest Days Gestation 0 0 Menstrual History Last Menstrual Date Menses Monthly On Bcp Conception Prior Menses Frequency Hcg Plus Date Menarche Onset Age Delivery Information Delivery Date Delivery Type Labor Anesthesia Weeks Gestation Incision Type Labor Labor Length Hrs Delivered By Post Complications Tubal Sterilization Discharge Date Comments 5 Discharge Information Feeding Method Contraceptive Method Maternal HG B and HCT Levels Ob Episode Information Episode Created Date Number of Fetuses Patient Bloodtype Patient rh Status Prepregnancy Weight lbs Domestic Partner Domestic Partner Phone Father Name Poultry Hatchery Manager Status 04/15/20 20 1 CLOSED Fetus Data First Name Last Name Admitted to NICU Weight (g) Sex Living Outcome Pediatric Complications Fetus ID Race Codes Race Delivery Type , Spontane ous 2633 Miky Calculation Initial Miky Date Initial Exam Date Initial Exam Provider Initial Ultrasound Date Last Menstrual Period Date Ultra Sound Weeks Gestation 0 Eighteen To Twenty Week Miky Update Ultra Sound Date Fundal Height At Umbil Quickening Date Ultra Sound Latest Weeks Gestation Final Miky Confirmed By Final Miky Confirmed Date Final Miky Date Ultra Sound Latest Days Gestation 0 0 Menstrual History Last Menstrual Date Menses Monthly On Bcp Conception Prior Menses Frequency Hcg Plus Date Menarche Onset Age Delivery Information Delivery Date Delivery Type Labor Anesthesia Weeks Gestation Incision Type Labor Labor Length Hrs Delivered By Post Complications Tubal Sterilization Discharge Date Comments 2 Discharge Information Feeding Method Contraceptive Method Maternal HG B and HCT Levels Ob Episode Information Episode Created Date Number of Fetuses Patient Bloodtype Patient rh Status Prepregnancy Weight lbs Domestic Partner Domestic Partner Phone Father Name Poultry Hatchery Manager Status 04/28/20 20 1 A Positive 108 CLOSED Fetus Data First Name Last Name Admitted to NICU Weight (g) Sex Living Outcome Pediatric Complications Fetus ID Race Codes Race Delivery Type false 3033.39 65 M true Full Term 2865 Vaginal Delivery Problems Problem Notes Problem Name Start Date End Date Resolution Snomed Code Not e Subchorionic hematoma SELFRESOLVED 36348 4004 Migraine [id number] neuro cons ult 10/[address] Hoyt Cystic fibrosis [id number] FRANCIS IER - FOB Joseluis Martin NEG Small for gestational age fetus 580155379 EFW 30% to 8% i n 1 month Oliguria 91820085 2x2 pocket noted Miky Calculation Initial Miky Date Initial Exam Date Initial Exam Provider Initial Ultrasound Date Last Menstrual Period Date Ultra Sound Weeks Gestation 11/02/2020 04/28/2020 04/14/2020 01/27/2020 11 Eighteen To Twenty Week Miky Update Ultra Sound Date Fundal Height At Umbil Quickening Date Ultra Sound Latest Weeks Gestation Final Miky Confirmed By Final Miky Confirmed Date Final Miky Date Ultra Sound Latest Days Gestation 0 [email or web address] 04/28/2020 11/02/19 21 0 Pre-huan Flowsheet Flowsheet Date 04/28/2020 Hill Score Blood Edema Fundus Height Fundus Units Glucose Ketones Leukocytes Nitrite Labor Signs Protein Cervic Dilation Cervic Effacement Cervic Station 12 trace Type Weight in lbs Pre/Post Dialysis Refused Weight 107.599395242463 BP Diastolic BP Location Tested BP Systolic BP Type 67 102 Fetus Heart Rate Present A 153 Fetus Movement A No Comments This patient is a 25-year-ol d 4 para 1-0-2-1 at 13 weeks gestation who presents for initial visit. She has no significant history affecting the . She return in 4 weeks. Flowsheet Date 05/19/2020 Hill Score Blood Edema Fundus Height Fundus Units Glucose Ketones Leukocytes Nitrite Labor Signs Protein Cervic Dilation Cervic Effacement Cervic Station Type Weight in lbs Pre/Post Dialysis Refused BP Diastolic BP Location Tested BP Systolic BP Type Fetus Heart Rate Present Fetus Movement Comments Flowsheet Date 05/19/2020 Hill Score Blood Edema Fundus Height Fundus Units Glucose Ketones Leukocytes Nitrite Labor Signs Protein Cervic Dilation Cervic Effacement Cervic Station trace Type Weight in lbs Pre/Post Dialysis Refused Weight 112.253781700427 BP Diastolic BP Location Tested BP Systolic BP Type 68 L arm 101 sitting Fetus Heart Rate Present A 155 Fetus Movement A Yes Comments Pt doing well. Will have 2nd sequential drawn today. Flowsheet Date 06/16/2020 Hill Score Blood Edema Fundus Height Fundus Units Glucose Ketones Leukocytes Nitrite Labor Signs Protein Cervic Dilation Cervic Effacement Cervic Station Type Weight in lbs Pre/Post Dialysis Refused BP Diastolic BP Location Tested BP Systolic BP Type Fetus Heart Rate Present Fetus Movement Comments Flowsheet Date 06/16/2020 Hill Score Blood Edema Fundus Height Fundus Units Glucose Ketones Leukocytes Nitrite Labor Signs Protein Cervic Dilation Cervic Effacement Cervic Station 20 trace Type Weight in lbs Pre/Post Dialysis Refused Weight 117.843369121582 BP Diastolic BP Location Tested BP Systolic BP Type 61 97 Fetus Heart Rate Present A 145 Fetus Movement A Yes Comments Flowsheet Date 07/21/2020 Hill Score Blood Edema Fundus Height Fundus Units Glucose Ketones Leukocytes Nitrite Labor Signs Protein Cervic Dilation Cervic Effacement Cervic Station 25 trace Type Weight in lbs Pre/Post Dialysis Refused Weight 121.587289601836 BP Diastolic BP Location Tested BP Systolic BP Type 67 R arm 108 sitting Fetus Heart Rate Present A 145 Fetus Movement A Yes Comments Flowsheet Date 08/13/2020 Hill Score Blood Edema Fundus Height Fundus Units Glucose Ketones Leukocytes Nitrite Labor Signs Protein Cervic Dilation Cervic Effacement Cervic Station 27 trace Type Weight in lbs Pre/Post Dialysis Refused Weight 126.95059341360 BP Diastolic BP Location Tested BP Systolic BP Type 82 L arm 117 sitting Fetus Heart Rate Present Fetus Movement A Yes Comments When she woke up this laran g she had a headache and visual disturbances. She thought she was going blind Lasted a few hours. She layed back down and the visual disturbances resolved and the headache shortly after. Will send pt to L&D for evaluation. Pt is aware that if this ever happens again she would need to call 911. PIH precautions discussed in great detail.Will finish 1 hour gtt today. Will schedule neuro consult. Flowsheet Date 08/29/2020 Hill Score Blood Edema Fundus Height Fundus Units Glucose Ketones Leukocytes Nitrite Labor Signs Protein Cervic Dilation Cervic Effacement Cervic Station neg trace 27 trace Type Weight in lbs Pre/Post Dialysis Refused Weight 126.63503407516 BP Diastolic BP Location Tested BP Systolic BP Type 65 99 Fetus Heart Rate Present A 145 Fetus Movement A Yes Comments patient is having contractio ns, normal discharge, swelling, and nausea, reviewed precautions, wants delayed cord clamping Flowsheet Date 09/10/2020 Hill Score Blood Edema Fundus Height Fundus Units Glucose Ketones Leukocytes Nitrite Labor Signs Protein Cervic Dilation Cervic Effacement Cervic Station neg none 31 trace Type Weight in lbs Pre/Post Dialysis Refused Weight 130.562458508057 BP Diastolic BP Location Tested BP Systolic BP Type 69 105 Fetus Heart Rate Present A 144 Fetus Movement A Yes Comments Doing well. Occasional contr actions. Will have lead screen drawn today. Growth u/s today. Flowsheet Date 09/10/2020 Hill Score Blood Edema Fundus Height Fundus Units Glucose Ketones Leukocytes Nitrite Labor Signs Protein Cervic Dilation Cervic Effacement Cervic Station Type Weight in lbs Pre/Post Dialysis Refused BP Diastolic BP Location Tested BP Systolic BP Type Fetus Heart Rate Present Fetus Movement Comments Flowsheet Date 09/24/2020 Hill Score Blood Edema Fundus Height Fundus Units Glucose Ketones Leukocytes Nitrite Labor Signs Protein Cervic Dilation Cervic Effacement Cervic Station neg none 32 trace Type Weight in lbs Pre/Post Dialysis Refused Weight 128.590680772045 BP Diastolic BP Location Tested BP Systolic BP Type 65 95 Fetus Heart Rate Present A 135 Fetus Movement A Yes Comments Was seen in ER last night fo r discharge which sounds like mucous plug per patient description. She was found to have a UTI and given RX for UTI (keflex). No sympotms. Pt has u/s coming up for growth. Flowsheet Date 10/03/2020 Hill Score Blood Edema Fundus Height Fundus Units Glucose Ketones Leukocytes Nitrite Labor Signs Protein Cervic Dilation Cervic Effacement Cervic Station Type Weight in lbs Pre/Post Dialysis Refused BP Diastolic BP Location Tested BP Systolic BP Type Fetus Heart Rate Present Fetus Movement Comments Flowsheet Date 10/07/2020 Hill Score Blood Edema Fundus Height Fundus Units Glucose Ketones Leukocytes Nitrite Labor Signs Protein Cervic Dilation Cervic Effacement Cervic Station neg none 33 trace 1cm 70% -2 Type Weight in lbs Pre/Post Dialysis Refused Weight 129.561425731172 BP Diastolic BP Location Tested BP Systolic BP Type 68 114 Fetus Heart Rate Present A 138 Fetus Movement A Yes Comments Irregular contractions. Norm al movement. Size less than dates. Pt has u/s and nst today for SGA. Flowsheet Date 10/07/2020 Hill Score Blood Edema Fundus Height Fundus Units Glucose Ketones Leukocytes Nitrite Labor Signs Protein Cervic Dilation Cervic Effacement Cervic Station Type Weight in lbs Pre/Post Dialysis Refused BP Diastolic BP Location Tested BP Systolic BP Type Fetus Heart Rate Present Fetus Movement Comments Flowsheet Date 10/07/2020 Hill Score Blood Edema Fundus Height Fundus Units Glucose Ketones Leukocytes Nitrite Labor Signs Protein Cervic Dilation Cervic Effacement Cervic Station Type Weight in lbs Pre/Post Dialysis Refused BP Diastolic BP Location Tested BP Systolic BP Type Fetus Heart Rate Present Fetus Movement Comments Flowsheet Date 10/14/2020 Hill Score Blood Edema Fundus Height Fundus Units Glucose Ketones Leukocytes Nitrite Labor Signs Protein Cervic Dilation Cervic Effacement Cervic Station Type Weight in lbs Pre/Post Dialysis Refused BP Diastolic BP Location Tested BP Systolic BP Type Fetus Heart Rate Present Fetus Movement Comments Flowsheet Date 10/14/2020 Hill Score Blood Edema Fundus Height Fundus Units Glucose Ketones Leukocytes Nitrite Labor Signs Protein Cervic Dilation Cervic Effacement Cervic Station Type Weight in lbs Pre/Post Dialysis Refused BP Diastolic BP Location Tested BP Systolic BP Type Fetus Heart Rate Present Fetus Movement Comments Flowsheet Date 10/14/2020 Hill Score Blood Edema Fundus Height Fundus Units Glucose Ketones Leukocytes Nitrite Labor Signs Protein Cervic Dilation Cervic Effacement Cervic Station 34 2cm 70% -2 Type Weight in lbs Pre/Post Dialysis Refused Weight 134.212333441793 BP Diastolic BP Location Tested BP Systolic BP Type 79 116 Fetus Heart Rate Present A 136 Fetus Movement A Yes Comments U/S reviewed with Dr Pichardo. O kathy but does have a 2x2 pocket and normal dopplers. Pt instructed to do kick counts twice daily and to go to L&D if any decrease in movement. Pt verbalized understanding. Labor precautions also discussed. Flowsheet Date 10/21/2020 Hill Score Blood Edema Fundus Height Fundus Units Glucose Ketones Leukocytes Nitrite Labor Signs Protein Cervic Dilation Cervic Effacement Cervic Station Type Weight in lbs Pre/Post Dialysis Refused BP Diastolic BP Location Tested BP Systolic BP Type Fetus Heart Rate Present Fetus Movement Comments Flowsheet Date 10/24/2020 Hill Score Blood Edema Fundus Height Fundus Units Glucose Ketones Leukocytes Nitrite Labor Signs Protein Cervic Dilation Cervic Effacement Cervic Station Type Weight in lbs Pre/Post Dialysis Refused BP Diastolic BP Location Tested BP Systolic BP Type Fetus Heart Rate Present Fetus Movement Comments Menstrual History Last Menstrual Date Menses Monthly On Bcp Conception Prior Menses Frequency Hcg Plus Date Menarche Onset Age 0401/27/2020 Genetic Screening And Infection History Question Response Note Mental Retardation/Autism false Patient's Age Will Be 35 Yea rs Or Older At Estimated Date of Delivery false Thalassemia (Swazi, Kyrgyz, Mediterranean, Or Background): MCV < 80 false Neural Tube Defect (Meningom yelocele, Spina Bifida, Or Anencephaly) false Congenital Heart Defect false Down Syndrome false Darren-Sachs (eg, Sikh, Cajun, Israeli-[place]ackelford) f alse Rosalba Disease false Sickle Cell Disease Or Trait () false Hemophilia Or Other Blood Disorders false Muscular Dystrophy false Cystic Fibrosis true Nathaniel's Chorea false Intellectual Disability/Autism false If Yes, Was Person Tested For Fragile X? false Other Inherited Genetic Or Chromosomal Disorder false Maternal Metabolic Disorder (eg, Type 1 Diabetes , PKU) false Patient Or Baby's Father Had A Child With Defects Not Listed Above false Recurrent Loss, Or A Stillbirth true First 2 Medications (including Suppl ements, Vitamins, Herbs, OTC Drugs), Illicit/Recreational Drugs, Alcohol false If Yes, Agent(s) And Strength/Dosage false Any Other Genetic History false Live With Someone With TB Or Exposed To TB false Patient Or Partner Has History Of Genital Herpes false Rash Or Viral Illness Since Last Menstrual Perio d false History Of STD, Gonorrhea, Chlamydia, HPV, Syphi lis false Other Infection History false History of HIV false History of Hepatitis false Prior GBS-infected child false Hemoglobinopathy Or Carrier false Other Structural Defect true Cl eft palate Recent Travel History Outside of Country false Delivery Information Delivery Date Delivery Type Labor Anesthesia Weeks Gestation Incision Type Labor Labor Length Hrs Delivered By Post Complications Tubal Sterilization Discharge Date Comments 1 None Regional-Ep idural 38.5 false Beth Wade CNM 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
== END 2025-08-20 13:12 | disposition home or self-care (01) ==
PROVIDERS: PCP Registered Nurse; Visit Provider Registered Nurse
DX: N83.201 Unspecified ovarian cyst, right side (principal)
CPT/HCPCS: 76830; 76856

== ENCOUNTER 2025-08-29 10:29 | Emergency (ER) | payer OTHER, SELFPAY ==
--- NOTE | ~2025-08-29 | CT_ITS ---
PROCEDURE: [Procedure] INDICATION: Abdominal pain/vaginal bleeding . Endometriosis. COMPARISON(S): Pelvic ultrasound from August 20 TECHNIQUE: Multiplanar images of the abdomen and pelvis were obtained with intravenous contrast solution.. Diagnostic sensitivity is limited due to lack of oral contrast. Dose lowering technique and dose optimization was utilized. FINDINGS: Exam is difficult to interpret because of the lack of intraperitoneal fat. Inferior thorax: No significant abnormality is seen. Liver: Normal. Gallbladder: The gallbladder is present. There are no radiopaque gallstones. Pancreas: Within normal limits. Spleen: Normal in size and appearance. Adrenal glands: There are no masses seen. Kidneys: There is no hydronephrosis seen on either side. No urinary tract stones are seen. There are no suspicious masses seen. GI tract: There is no evidence of bowel obstruction. There is a moderate amount of fecal material in the colon. The colon is quite redundant. The appendix is seen and appears normal. Major vessels: The major vessels are normal in caliber. The pelvic organs are particularly difficult to assess, as there is essentially no fat the uterus, right ovary, and bowel loops. Sex specific pelvic organs: The uterus is retroverted. There are some hypoechoic regions/structures which probably lie in the right ovary. Estimated greatest diameter of the larger of these structures is 2.6 cm, not changed from the pelvic ultrasound. Bladder: The bladder appears normal. Bones: There is an accentuated lumbar lordosis. IMPRESSION: No acute abnormality is seen. Probable normal follicles in the right ovary. Other findings as described. Reviewed, dictated and finalized at location A. NERET PERSON IMPRESSION: No acute abnormality is seen. Probable normal follicles in the right ovary. Oth er findings as described.
[2025-08-29 10:35] VITALS: BP 114/82; PULSE 80; RESP 16; TEMP 36.6; O2SAT 100
[2025-08-29] MEDS: ONDANSETRON INJ 4 MG/2 ML VIAL IV PUSH (10:55)
[2025-08-29] MEDS: SODIUM CHLORIDE 0.9% IV 1,000 ML 999 ML IV CONT (10:55)
[2025-08-29] MEDS: MORPHINE SULFATE (*CRX) 4 MG/ML INJ IV PUSH (10:56)
[2025-08-29 10:58] LABS: Hematocrit 37.5 % (35.0-49.0); Hemoglobin 12.7 g/dL (12.0-15.0); Immature Granulocyte Percent A 0.2 % (0.0-0.0); Lymphocytes Absolute Auto 2.10 K/mm3 (1.10-4.50); Mean Corpuscular HGB Conc 33.9 g/dL (32-36); Mean Corpuscular Hemoglobin 31.8 pg (27.0-31.0); Mean Corpuscular Volume 94.0 fL (78.0-102.0); Nucleated Red Blood Cells Absolute Auto 0.00 K/mm3 (0.00-0.00); Nucleated Red Blood Cells Perc 0.0 % (0-0.0); Platelet Count Result 230 K/mm3 (150-420); Red Blood Count 3.99 M/mm3 (4.20-5.40); White Blood Count 5.3 K/mm3 (4.8-10.8)
[2025-08-29 11:00] LABS: Add Urine Microscopic? YES; Appearance Urine Clear (Clear); Glucose Urine UA Negative (Negative); Leukocyte Esterase Ur Negative LEU/UL (Negative); Nitrate Urine Negative (Negative); Specific Grav Ur 1.010 (1.010-1.020)
[2025-08-29 11:06] LABS: Pregnancy On Board Control Positive
[2025-08-29 11:12] LABS: Alanine Aminotransferase 13 U/L (6-35); Albumin Level 5.3 g/dL (3.5-5.1); Alkaline Phosphatase 51 U/L (38-126); Anion Gap 12 mmol/L (4-12); Aspartate Amino Transferase 22 U/L (14-36); Blood Urea Nitrogen 9 mg/dL (7-17); Calcium 9.1 mg/dL (8.4-10.2); Carbon Dioxide 22 mmol/L (22-30); Chloride 108 mmol/L (98-107); Estimated CRCL calculation 85 ml/min; Estimated Glomerular Filt Rate > 60; Glucose 95 mg/dL (65-110); Lipase 81 U/L (23-300); Osmolality Calculated 292 mOsm/kg (285-295); Potassium 3.9 mmol/L (3.4-5.0); Sodium 142 mmol/L (137-145); Total Protein 8.3 g/dL (6.3-8.2)
[2025-08-29 11:13] LABS: INR 1.0; Partial Thromboplastin Time 28.8 Sec (23.9-30.70); Prothrombin Time 10.9 Seconds (9.50-12.1)
--- OUTSIDE RECORDS SUMMARY | 2025-08-29 11:25 | XMS_ITS | Data Portability ---
Author Organization [facility] [place] Address [address] [place] [address] Care Team Providers Care Lpn Per Diem Name Role Phone MICHAEL DIMAS Primary Care Provider [phone] Assessment Encounter Date Assessment Date Assessment LastModified by Organization Details LastModified Time 11/28/2023 11/28/2023 Annual gynecological exam performed. Patient will come back in a year unless there are new symptoms. [email or web address] Not available 11/28/2023 10:38:19 Plan of Treatment Reminders Order Date Submit Date Provider Last Modified By Organization Details Last Modified Time Details Appointments None recorded. Lab CBC w/ auto diff 2024 025 [facility] (Lab), [address], [place], [address], 5 22:34:20 TSH, serum or plasma 2024 025 [facility] (Lab), [address] [place], [address], 5 22:34:21 CMP, serum or plasma 2024 025 [facility] (Lab), [address] [place], [address], 5 22:34:21 HbA1c (hemoglobin A1c), blood 2024 025 [facility] (Lab), [address] [place], [address], 5 22:34:24 25-hydroxyv itamin D2 + 25-hydroxyv itamin D3, QN, serum or plasma 2024 025 [facility] (Lab), [address], [place], [address], 5 22:34:23 vitamin B12 + folate, serum or blood 2024 025 [facility] (Lab), [address], [place], [address], 5 22:34:23 lipid panel, blood 2024 025 [facility] (Lab), [address], [place], [address], 5 22:34:21 dhea-sulfat e, serum 2024 025 [facility] (Lab), [address], [place], [address], 5 22:34:20 hormone panel, serum or plasma 2024 025 [facility] (Lab), [address], [place], [address], 5 22:34:23 progesteron e, serum 2024 025 [facility] (Lab), [address], [place], [address], 5 22:34:22 prolactin, serum 2024 025 [facility] (Lab), [address], [place], [address], 5 22:34:22 shbg (sex hormone-bin ding globulin), serum 2024 025 [facility] (Lab), [address], [place], [address], 5 22:34:22 testosteron e free/testos terone total, ratio, serum 2024 025 [facility] (Lab), [address], [place], [address], 5 22:34:24 test, urine 2024 025 [email or web address] [place], [address], [place], [address], 5 17:10:57 test, urine 2023 024 [email or web address] [place], [address], [place], [address], 4 10:52:34 beta-HCG, quantitativ e, serum or plasma 2023 024 [facility] (Lab), [address], [place], [address], 4 05:00:58 Referral None recorded. Procedures None recorded. Surgeries None recorded. Imaging US, transvagina l 2024 025 [email or web address] [place], [place], [address], 5 22:17:18 US, pelvis, complete 2024 025 [email or web address] 1 [place], [place], [address], 5 11:06:33 US, breast, bilateral, complete 2023 024 [facility], [address], [facility], [place], [address], 4 05:00:58 US, transvagina l 2022 023 [email or web address] [place], [address], [address], [place], [address], 3 00:02:34 Medication Orders None recorded. Patient [...] as clini candace warra nted. Not Available [facility] (Lab) [address], [place], [address], 12/02/2023 06:44:09 11/28/19 24 11/28/2023 pregn valentín test, urine HCG negati ve Not Available [place] [address], [place], [address], 11/28/2023 10:51:17 01/23/2001/22/2025 CBC W/DIF F WBC 5.9 10'3/ uL 3.5-10 .5 Not Available [facility] (Lab) [address], [place], [address], 01/26/2025 22:34:20 01/23/20 25 01/22/2025 CBC W/DIF F RBC 3.89 10'6/ uL (based on docume nted legal sex) 3.80-5 .20 Not Available [facility] (Lab) [address], [place], [address], 01/26/2025 22:34:20 01/23/20 25 01/22/2025 CBC W/DIF F HGB 12.3 g/dL (based on docume nted legal sex) 11.6-1 5.4 Not Available [facility] (Lab) [address] [facility], [place], [address], 01/26/2025 22:34:20 01/23/20 25 01/22/2025 CBC W/DIF F HCT 36.4 % (based on docume nted legal sex) 34.0-4 5.0 Not Available [facility] (Lab) [address] [facility], [place], [address], 01/26/2025 22:34:20 01/23/20 25 01/22/2025 CBC W/DIF F MCV 93.6 fL 80.0-9 9.0 Not Available [facility] (Lab) [address] [facility], [place], [address], 01/26/2025 22:34:20 01/23/20 25 01/22/2025 CBC W/DIF F MCH 31.6 pg 27.0-3 4.0 Not Available [facility] (Lab) [address] [facility], [place], [address], 01/26/2025 22:34:20 01/23/20 25 01/22/2025 CBC W/DIF F MCHC 33.8 g/dL 32.0-3 5.5 Not Available [facility] (Lab) [address] [facility], [place], [address], 01/26/2025 22:34:20 01/23/20 25 01/22/2025 CBC W/DIF F RDW 11.8 % 11.0-1 5.0 Not Available [facility] (Lab) [address] [facility], [place], [address], 01/26/2025 22:34:20 01/23/20 25 01/22/2025 CBC W/DIF F plt 222 10'3/ uL 150-40 0 Not Available [facility] (Lab) [address] [facility], [place], [address], 01/26/2025 22:34:20 01/23/20 25 01/22/2025 CBC W/DIF F MPV 10.0 fL 8.8-12 .1 Not Available [facility] (Lab) [address] [facility], [place], [address], 01/26/2025 22:34:20 01/23/20 25 01/22/2025 CBC W/DIF F neutrophils 56.9 % 34.0-7 3.0 Not Available [facility] (Lab) [address] [facility], [place], [address], 01/26/2025 22:34:20 01/23/20 25 01/22/2025 CBC W/DIF F lymphocytes 33.3 % 15.0-5 0.0 Not Available [facility] (Lab) [address] [facility], [place], [address], 01/26/2025 22:34:20 01/23/20 25 01/22/2025 CBC W/DIF F monocytes 7.3 % 1.0-15 .0 Not Available [facility] (Lab) [address] [facility], [place], [address], 01/26/2025 22:34:20 01/23/20 25 01/22/2025 CBC W/DIF F eosinophils 1.9 % 0.0-8. 0 Not Available [facility] (Lab) [address] [facility], [place], [address], 01/26/2025 22:34:20 01/23/20 25 01/22/2025 CBC W/DIF F basophils 0.3 % 0.0-2. 0 Not Available [facility] (Lab) [address] [facility], [place], [address], 01/26/2025 22:34:20 01/23/20 25 01/22/2025 CBC W/DIF [...] separ ately if prese nt. Not Available [facility] (Lab) [address] [facility], [place], [address], 01/26/2025 22:34:20 01/23/20 25 01/22/2025 CBC W/DIF F absolute neutrophils 3.4 10'3/ uL 1.5-8. 0 Not Available [facility] (Lab) [address] [facility], [place], [address], 01/26/2025 22:34:20 01/23/20 25 01/22/2025 CBC W/DIF F absolute lymphocytes 2.0 10'3/ uL 1.0-4. 0 Not Available [facility] (Lab) [address] [facility], [place], [address], 01/26/2025 22:34:20 01/23/20 25 01/22/2025 CBC W/DIF F absolute monocytes 0.4 10'3/ uL 0.2-1. 0 Not Available [facility] (Lab) [address] [facility], [place], [address], 01/26/2025 22:34:20 01/23/20 25 01/22/2025 CBC W/DIF F absolute eosinophils 0.1 10'3/ uL 0.0-0. 6 Not Available [facility] (Lab) [address] [facility], [place], [address], 01/26/2025 22:34:20 01/23/20 25 01/22/2025 CBC W/DIF F absolute basophils 0.0 10'3/ uL 0.0-0. 3 Not Available [facility] (Lab) [address] , [place], [address], 01/26/2025 22:34:20 01/23/20 25 01/22/2025 CBC W/DIF [...] the indiv idual patie nt: https ://la Xuehuileand book. nm.or g/gen derx Not Available [facility] (Lab) [address] [facility], [place], [address], 01/26/2025 22:34:20 01/23/20 25 01/22/2025 DHEA SULFA TE DHEA-sulfate 368 ug/dL Femal e Range s Age(y ) Range (ug/d L) 10-15 34-28 0 15-20 65-36 8 20-25 148-4 07 25-35 99-34 0 35-45 61-33 7 45-55 35-25 6 55-65 19-20 5 65-75 9-246 > 75 12-15 4 Not Available [facility] (Lab) [address] [facility], [place], [address], 01/26/2025 22:34:20 01/23/20 25 01/22/2025 LIPID PANEL ,AMA (LDL- CALC) total cholesterol 136 mg/dL 0-199 Not Available [facility] (Lab) [address] [facility], [place], [address], 01/26/2025 22:34:21 01/23/20 25 01/22/2025 LIPID PANEL ,AMA (LDL- CALC) triglyceride s 56 mg/dL 0-150 NCEP Refer ence Value s for Trigl yceri marianne: Abigail l: <150 mg/dL Borde rline High: 150 - 199 mg/dL High: 200 - 499 mg/dL Very High: >/= 500 mg/dL Not Available [facility] (Lab) [address] [facility], [place], [address], 01/26/2025 22:34:21 01/23/20 25 01/22/2025 LIPID PANEL ,AMA (LDL- CALC) HDL cholesterol 62 mg/dL >40 Not Available [facility] (Lab) [address] [facility], [place], [address], 01/26/2025 22:34:21 01/23/20 25 01/22/2025 LIPID PANEL [...] mg/dL , HDL <40 mg/dL Not Available [facility] (Lab) [address] [facility], [place], [address], 01/26/2025 22:34:21 01/23/20 25 01/22/2025 LIPID PANEL ,AMA (LDL- CALC) non-HDL cholesterol 74 mg/dL no refere nce range A reaso nable goal for non-H DL annabella stero l is one that is 30 mg/dL highe r than the LDL annabella stero l goal. Not Available [facility] (Lab) [address] [facility], [place], [address], 01/26/2025 22:34:21 01/23/20 25 01/22/2025 LIPID PANEL ,AMA (LDL- CALC) chol/HDL ratio 2.2 . 0.0-5. 0 On February 08, 2023, [employer] labor rosario bean ed the equat ion [...] Conrad Daly, Conrad taylor, Tang Roberts. Mattie valentien , and Oscar Wheeler . 2013. Comp ariso n of a Novel Metho d vs the Fried taty Equat ion for Estim ating Low-D ensit y Lipop rotei n Annabella stero l Level s from the [facility] Pro[facility]. CATRINA: The Journ al [...] n. 2017Oct 18;137 (1):1 0-19. Not Available [facility] (Lab) [address] [facility], [place], [address], 01/26/2025 22:34:21 01/23/20 25 01/22/2025 CMP(C OMPRE HENSI VE METAB OLIC PANEL ) sodium 136 mmol/ L 133-14 6 Not Available [facility] (Lab) [address] [place], [address], 01/26/2025 22:34:21 01/23/20 25 01/22/2025 CMP(C OMPRE HENSI VE METAB OLIC PANEL ) potassium 3.9 mmol/ L 3.5-5. 1 Not Available [facility] (Lab) [address] [facility], [place], [address], 01/26/2025 22:34:21 01/23/20 25 01/22/2025 CMP(C OMPRE HENSI VE METAB OLIC PANEL ) chloride 102 mmol/ L 98-107 Not Available [facility] (Lab) [address] [facility], [place], [address], 01/26/2025 22:34:21 01/23/20 25 01/22/2025 CMP(C OMPRE HENSI VE METAB OLIC PANEL ) carbon dioxide 26 mmol/ L 21-31 Not Available [facility] (Lab) [address] [facility], [place], [address], 01/26/2025 22:34:21 01/23/20 25 01/22/2025 CMP(C OMPRE HENSI VE METAB OLIC PANEL ) anion gap 8 mmol/ L 4-13 Not Available [facility] (Lab) [address] [facility], [place], [address], 01/26/2025 22:34:21 01/23/20 25 01/22/2025 CMP(C OMPRE HENSI VE METAB OLIC PANEL ) blood urea nitrogen 8 mg/dL 7-25 Not Available [facility] (Lab) [address] [place], [address], 01/26/2025 22:34:21 01/23/20 25 01/22/2025 CMP(C OMPRE HENSI VE METAB OLIC PANEL ) creatinine 0.61 mg/dL 0.60-1 .30 Not Available [facility] (Lab) [address] [facility], [place], [address], 01/26/2025 22:34:21 01/23/20 25 01/22/2025 CMP(C OMPRE HENSI VE METAB OLIC PANEL ) egfrcr (CKD-epi 2020) >90 mL/mi n/1.7 3_m2 >=60 Not Available [facility] (Lab) [address] [facility], [place], [address], 01/26/2025 22:34:21 01/23/20 25 01/22/2025 CMP(C OMPRE HENSI VE METAB OLIC PANEL ) calcium 9.5 mg/dL 8.3-10 .5 Not Available [facility] (Lab) [address] [facility], [place], [address], 01/26/2025 22:34:21 01/23/20 25 01/22/2025 CMP(C OMPRE HENSI VE METAB OLIC PANEL ) glucose 87 mg/dL 70-100 Not Available [facility] (Lab) [address] [facility], [place], [address], 01/26/2025 22:34:21 01/23/20 25 01/22/2025 CMP(C OMPRE HENSI VE METAB OLIC PANEL ) protein, total 7.6 g/dL 6.4-8. 3 Not Available [facility] (Lab) [address] [facility], [place], [address], 01/26/2025 22:34:21 01/23/20 25 01/22/2025 CMP(C OMPRE HENSI VE METAB OLIC PANEL ) albumin 5.1 g/dL 3.5-5. 0 high Not Available [facility] (Lab) [address] [place], [address], 01/26/2025 22:34:21 01/23/20 25 01/22/2025 CMP(C OMPRE HENSI VE METAB OLIC PANEL ) ALT 8 units /L 9-43 low Not Available [facility] (Lab) [address] [facility], [place], [address], 01/26/2025 22:34:21 01/23/20 25 01/22/2025 CMP(C OMPRE HENSI VE METAB OLIC PANEL ) alkaline phosphatase 46 units /L 34-104 Not Available [facility] (Lab) [address] [facility], [place], [address], 01/26/2025 22:34:21 01/23/20 25 01/22/2025 CMP(C OMPRE HENSI VE METAB OLIC PANEL ) AST 13 units /L 13-39 Not Available [facility] (Lab) [address] [facility], [place], [address], 01/26/2025 22:34:21 01/23/20 25 01/22/2025 CMP(C OMPRE HENSI VE METAB OLIC PANEL ) bilirubin, total 0.5 mg/dL 0.2-1. 2 Not Available [facility] (Lab) [address] [facility], [place], [address], 01/26/2025 22:34:21 01/23/20 25 01/22/2025 TSH, REFLE X FREE T4 TSH 1.17 uIU/m L 0.30-5 .33 Not Available [facility] (Lab) [address] [facility], [place], [address], 01/26/2025 22:34:21 01/23/20 25 01/22/2025 HUMAN SEX HORMO NE SHERYL NG GLOBU GIO sex hormone binding globulin 78.3 nmole s/L 18.2-1 35.5 Not Available [facility] (Lab) [address] [place], [address], 01/26/2025 22:34:22 01/23/20 25 01/22/2025 PROGE STERO [...] Trime ster 58.70 -214. 00 Not Available [facility] (Lab) [address] [facility], [place], [address], 01/26/2025 22:34:22 01/23/20 25 01/22/2025 PROLA CTIN prolactin, total 3.95 NG/mL 4.79-2 3.30 low This assay was perfo rmed using [employer] ratio n reage nts and test kits. Value s obtai anita with other assay metho ds or kits canno t be used inter bean eably . Not Available [facility] (Lab) [address] [facility], [place], [address], 01/26/2025 22:34:22 01/23/20 25 01/22/2025 VITAM IN D, 25-OH (TOTA L D2/D3 ) vitamin D, 25-hydroxy, total 20.3 NG/mL 30.0-1 00.0 low Sugge stive of Defic iency : <20 ng/mL Sugge stive of Insuf ficie ncy: 20-29 ng/mL Sugge stive of Suffi cienc y: 30-10 0 ng/mL Sugge stive of Toxic ity: >150 ng/mL Not Available [facility] (Lab) [address] [facility], [place], [address], 01/26/2025 22:34:23 01/23/20 25 01/22/2025 VITAM IN B12 / FOLAT E PANEL vitamin B12 241 pg/mL 180-91 4 Abigail l Range : 180-9 14 pg/mL . Indet ermin ate Range : 145-1 80 pg/mL . Defic ient Range : <=145 pg/mL . Not Available [facility] (Lab) [address] [facility], [place], [address], 01/26/2025 22:34:23 01/23/20 25 01/22/2025 VITAM IN B12 / FOLAT E PANEL folate, serum 9.5 NG/mL 6.0-20 .0 Not Available [facility] (Lab) [address] [place], [address], 01/26/2025 22:34:23 01/23/20 25 01/22/2025 FSH, LH, ESTRA DIOL estradiol 66.6 pg/mL This assay was perfo rmed using [employer] ratio n reage nts and test kits. Value s obtai anita with other assay metho ds or kits canno t be used inter [facility] . Femal e Estra diol Range s: Folli cular phase 12.4- 233 pg/mL Ovula tion phase 41.0- 398 pg/mL Lutea l phase 22.3- 341 pg/mL Postm enopa usal <5-13 8 pg/mL Healt hy Pregn ant Women 1st Trime ster 154-3 243 pg/mL 2nd Trime ster 1561- 39477 pg/mL 3rd Trime ster 8525- >3000 0 pg/mL Not Available [facility] (Lab) [address] [facility], [place], [address], 01/26/2025 22:34:23 01/23/20 25 01/22/2025 FSH, LH, ESTRA DIOL FSH 7.4 mIU/m L This assay was perfo rmed using [employer] ratio n reage nts and test kits. Value s obtai anita with other assay metho ds or kits canno t be used inter [facility] . Femal es Folli cular : 3.5-1 2.5 mIU/m L Ovula tion: 4.7-2 1.5 mIU/m L Lutea l: 1.7-7 .7 mIU/m L Postm enopa use: 25.8- 134.8 mIU/m L Not Available [facility] (Lab) [address] [facility], [place], [address], 01/26/2025 22:34:23 01/23/20 25 01/22/2025 FSH, LH, [...] use: 7.7-5 8.5 mIU/m L Not Available [facility] (Lab) [address] [facility], [place], [address], 01/26/2025 22:34:23 01/23/20 25 01/22/2025 HEMOG LOBIN [...] >8.0% Actio n sugge sted Not Available [facility] (Lab) [address] [facility], [place], [address], 01/26/2025 22:34:23 01/23/20 25 01/22/2025 TESTO STERO [...] cteri stics have been deter mined by [employer] Jason ls [place], [place]. It has not been clear ed or appro diana by the U.S. Food and Drug Admin istra tion. This assay has been valid ated pursu ant to the CLIA regul ation s and is used for clini nanette purpo ses. Not Available [facility] (Lab) [address], [place], [address], 01/26/2025 22:34:24 01/23/20 25 01/22/2025 TESTO STERO NE, FREE( DIALY SIS) AND TOTAL (LC/M S/MS) testosterone , free 1.8 pg/mL 0.1-6. 4 This test was devel oped and its mary jane tical perfo rmanc e betty cteri stics have been deter mined by [employer] [facility] [place], [place]. It has not been clear ed or appro diana by the U.S. Food and Drug Admin istra tion. This assay has been valid ated pursu ant to the CLIA regul ation s and is used for clini nanette purpo ses. Perfo rming Organ izati on Infor colin n: Site ID: [id number] Name: Parish zaragoza s Jason ls [employer] Addre ss: [id number] [facility] [employer] [place], [place] Direc tor: Clara Gross MD PhD Not Available [facility] (Lab) [address], [place], [address], 01/26/2025 22:34:24 01/23/20 25 01/22/2025 pregn valentín test, urine HCG negati ve Not Available [place] [address], [place], [address], 01/22/2025 17:10:43 05/03/20 23 05/03/2023 US, trans vagin al No observ ation record ed. consuelo [place] [address], [place], [address], 05/03/2023 09:53:04 05/03/20 23 05/03/2023 US, trans vagin al No observ ation record ed. [email or web address] [address], [place], [address], 05/03/2023 23:27:13 02/06/20 25 02/05/2025 US, trans vagin al No observ ation record ed. consuelo [place] [address], [place], [address], 02/05/2025 17:49:43 02/06/20 25 02/05/2025 US, trans vagin al No observ ation record ed. [email or web address] [address], [place], [address], 03/05/2025 13:57:10 Result Notes None recorded. Problems Name Problem SNOMED Code Status Onset Date Resolution Date Notes Provider Name and Address Organization Details Recorded Time Subchori onic hematoma 683357848 Completed Vandana Martin hl null, [facility] 10:59:01 Migraine [id number] Completed neuro consult 10/[address] Lai Martin hl null, [facility] 10:59:01 Cystic fibrosis [id number] Completed CARRIER - FOB Joseluis Worth NEG Vandana Martin hl null, [facility] 10:59:01 Small for gestatio nal age fetus [id number] Completed EFW 30% to 8% in 1 month Vandana Martin hl null, [facility] 10:59:01 Oliguria [id number] Completed 2x2 pocket noted Vandana Martin hl null, [facility] 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 0 12:12:09 Pelvic and perineal pain [id number] Completed 201710/13/2020 Pelvic and perineal pain;Pra ctice ID: 0001 Shilpa adams [facility] 0 12:13:29 Implanta tion of subcutan eous contrace ptive Completed 201710/13/2020 Insertio n of implanta ble subderma l contrace ptive;Re corded Elsewher e: No Locat ion: [facility] S ource: EHR Dry Color Tester josette: N Estiventi ce ID: [id number] Hussein lable Time: 02:00:00 PM Shilpa Bah [facility] 0 12:12:57 Procedur e Completed 201710/13/2020 Enctr srvlnc implanta ble subderma l contrace ptive;Pr actice ID: 0001 Shilpa Bah [facility] 0 12:12:[address] Concept Completed 201810/13/2020 Encounte r for surveill ance of other contrace ptives;R ecorded Elsewher e: No Locat ion: [facility] S ource: EHR Dry Color Tester josette: N Practi ce ID: [id number] Hussein lable Time: 02:00:00 PM Shilpa Bah [facility] 0 12:12:17 Pregnanc y test negative [id number] Completed 201810/13/2020 Encounte r for pregnanc y test, result negative ;Recorde d Elsewher e: No [facility]: EHR Dry Color Tester josette: N Practi ce ID: [id number] Hussein lable Time: 02:00:00 PM [facility] 12:13:19 Finding of regulari ty of menstrua l cycle Completed 201810/13/2020 Irregula r bleeding ;Recorde d Elsewher e: No [facility] N Practi ce ID: [id number] Hussein lable Time: 02:00:00 PM 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 1 09:59:48 Endometr iosis of pelvic peritone um [id number] Completed 201811/18/2020 Endometr iosis of pelvic peritone um;Pract ice ID: 0001 Alejandra Solano [facility], [facility] 1 09:59:49 Procedur e on genitour inary system Completed 201810/13/2020 Encounte r for surgical aftercar e followin g surgery on the genitour inary system;R ecorded Elsewher e: No [facility] N Practi ce ID: [id number] Hussein lable Time: 10:00:00 AM Shilpa Bah [facility] 0 12:12:34 Postoper ative care Completed 201810/13/2020 Encounte r for surgical aftercar e followin g surgery on the genitour inary system;R ecorded Elsewher e: No [facility] N Practi ce ID: [id number] Hussein lable Time: 10:00:00 AM Shilpa Bah [facility] 0 12:13:12 Breast finding Completed 201810/13/2020 Other signs and symptoms in breast;R ecorded Elsewher e: No Locat ion: [facility] S ource: EHR Dry Color Tester josette: N Estiventi ce ID: [id number] Hussein lable Time: 11:30:00 AM Shilpa Bah [facility] 0 12:13:38 Breast lump [id number] Completed 201810/23/2020 Unspecif ied lump in unspecif ied breast;R ecorded Elsewher e: No Locat ion: [facility] S ource: EHR Dry Color Tester josette: N Chela ce ID: [id number] Hussein lable Time: 11:30:00 AM Shilpa Bah [facility] 1 15:16:10 Pregnanc y [id number] Completed 201911/03/2020 Shilpa Bah [facility] 1 14:47:36 Anemia [id number] Completed 202009/21/2021 Lilibeth Dacosta [facility] 1 12:43:44 Cyst of ovary [id number] Completed 202009/21/2021 Lilibeth Dcaosta [facility] 1 12:43:46 Notes:Bleeding disorder Problem Notes None recorded. Procedures Surgical History Date Name Laterality Status Provider Name and Address Organization Details Recorded Time 11/28/19 24 Date of Last Pap Smear completed Randi Garrett [facility] 11/28/2023 10:41:59 03/31/20 22 LAPAROSCOPY, DIAGNOSTIC (SURG) completed [facility] 04/01/2022 09:53:48 12/31/19 22 LAPAROSCOPY, DIAGNOSTIC (SURG) completed [facility] 12/31/2021 09:51:31 10/19/19 20 Date of Last Mammogram completed Aparna Palmerman [facility] 01/09/2024 09:38:24 left salpingo-oopho rectomy completed REX Jones [address], [place], [address], [facility] 11/28/2023 11:26:06 Imaging Results None recorded. Procedure Notes None recorded. Medical Equipment None Reported. Allergies Allergen ID Allergen Name Allergen Category Reaction Reaction Severity Criticality Documentation Date Start Date Code Code System Note Provider Name and Address Organization Details Recorded Time 1149 honey bee venom medicatio n Not available Not available Not available 04/15/2020 09923 7 RxNorm Danya Iglesias [facility] 0 10:06:12 1150 hornet venom environme nt Not available Not available Not available 04/15/2020 Danya Iglesias [facility], [facility] 0 10:04:48 1151 nitrofura ntoin medicatio n Not available Not available Not available 04/15/2020 7454 RxNorm Danya Iglesias [facility], [facility] 0 10:05:14 1152 Non-stero idal anti-infl ammatory agent (substanc e) medicatio n Not available Not available Not available 04/15/2020 07584 5008 SNOMED Danya Iglesias [facility] 0 10:05:38 Medications Name Sig Start [...] Elsewher e: No [facility] By: eliceo osuna DateTime : 03/16/20 [...] Prescrib ed Elsewher e: Yes [facility] By: jefe z Andrew ashraf DateTime : 11/03/19 18 02:00:00 PM Not Available Not Available Not Available Vitals Date Recorded Body height Body mass index (BMI) Body weight Systolic And Diastolic Provider Name and Address Organization Details Last Updated DateTime 11/28/2023 157.48 cm 18.5 kg/m2 54338.27 g 105/71 mm[Hg] Randi Garrett [facility] 11/28/2023 10:39:37 Date Recorded Body height Body mass index (BMI) Body weight Systolic And Diastolic Provider Name and Address Organization Details Last Updated DateTime 01/22/2025 157.48 cm 19.8 kg/m2 74572.98 g 105/68 mm[Hg] BERNARD Bangura [facility] 01/22/2025 16:23:26 Date Recorded Body height Body mass index (BMI) Body weight Systolic And Diastolic Provider Name and Address Organization Details Last Updated DateTime 05/12/2023 157.48 cm 19.8 kg/m2 39585.98 g 112/63 mm[Hg] Luly Carlos [facility] 05/12/2023 14:41:03 Social History Question Answer Notes LastModified by Organizat ion Details LastModified Time Tobacco Smoking Status Never Smoker [facility] 09/23/2022 11:04:43 Do You Have An Advance Directive? No Information n ot available 01/22/2025 If You Are , What Was Your Level Of Alcohol Consumption Prior To ? None [email or web address] Information not available 01/22/2025 Are You Blind Or Do You Have Difficulty Seeing? No Information n ot available 11/28/2023 What Is Your Level Of Caffeine Consumption? None [email or web address] Information not available 01/22/2025 In The 14 Days Before Symptom Onset, Have You Had Close Contact With A Laboratory-confirm ed COVID-19 While That Case Was Ill? No [email or web address] Information n ot available 11/28/2023 In The 14 Days Before Symptom Onset, Have You Had Close Contact With A Person Who Is Under Investigation For COVID-19 While That Person Was Ill? No Information not available 11/28/2023 Have You Been To An Area Known To Be High Risk For COVID-19? No [email or web address] Information not available 11/28/2023 Are You Deaf Or Do You Have Serious Difficulty Hearing? No [email or web address] Information not available 11/28/2023 What Type Of Diet Are You Following? REGULAR [email or web address] Information n ot available 11/28/2023 What Is The Highest Grade Or Level Of School You Have Completed Or The Highest Degree You Have Received? [id number] [email or web address] Information not available 01/22/2025 What Was The Date Of Your Most Recent Tobacco Screening? 11/28/2023 [email or web address] Information not available 11/28/2023 Do You Use Your Seat Belt Or Car Seat Routinely? Yes [email or web address] Information not available 11/28/2023 Are You Sexually Active? Yes [email or web address] Information not available 01/22/2025 Do You Have Smoke And Carbon Monoxide Detectors In Your Home? Yes [email or web address] Information not available 11/28/2023 How Much Tobacco Do You Smoke? No [email or web address] Information not available 08/29/2020 Do You Use Sunscreen Routinely? Yes [email or web address] Information not available 11/28/2023 Has Tobacco Cessation Counseling Been Provided? No Information not available 01/22/2025 Do You Have Difficulty Walking Or Climbing Stairs? No [email or web address] Information not available 11/28/2023 Sex: Unknown Functional Status Question Answer Note LastModified by Organizat ion Details LastModified Time Do you use any illicit or recreational drugs? No [email or web address] Information not available 01/22/2025 What is your level of alcohol consumption? None [email or web address] Information not available 11/18/2020 Do you or have you ever used smokeless tobacco? Never used smokeless tobacco Information not available 09/23/2022 Are you currently employed? No [email or web address] Information not available 01/22/2025 Are you able to walk independently without assistance or assistive devices? YESWOREST [email or web address] Information not available 11/28/2023 Are you able to care for yourself independently? Yes [email or web address] Information not available 11/28/2023 Do you have difficulty dressing, bathing, grooming, or toileting? No [email or web address] Information not available 11/28/2023 Do you or have you ever used e-cigarettes or vape? Never used electronic cigarettes [email or web address] Information not available 09/23/2022 What is your exercise level? Occasional walking [id number] Information not available 08/19/2020 Mental Status Question Answer Note LastModified by Organization D etails LastModified Time Do you feel stressed (tense, restless, nervous, or anxious, or unable to sleep at night)? [id number] [email or web address] Information not available 11/28/2023 Family History Relationship Description Onset Age of this Age Resolved Age Notes LastModified by Organization Details LastModified Time Father No current problems or disability Not available 09/10 15:39:55 Mother No current problems or disability [email or web address] Not available 09/10 15:39:55 Medical History Condition [...] Codes Diagnosis Note [id number] Edil Pichardo MD [facility] [address],[place] [address] 04/14/2020 14:49:48 04/14/2020 15:49:31 Threatened miscarriage 85642027 O20.0 Z3A.11 [id number] Beth Wade [facility] [address],[place] [address] 04/16/2020 15:30:54 04/16/2020 17:00:52 Gynecologic examination 95595048 Z01.419 test positive 251069165 Z32.01 Risk factors addressed: Tobacco Cessation, Safe [...] annual well woman examinatio n and address [facility] . [id number] Edil Pichardo MD [place] [facility] [address],[facility] [place] [address] 04/28/2020 14:06:18 04/28/2020 15:39:43 screening 273094442 Z36.82 Z36.0 Z36.89 Routine an tenatal care 985822252 Z34.81 [id number] Edil Pichardo MD [place] [address],[facility] [address] 04/28/2020 14:06:59 04/28/2020 14:38:14 screening 646854499 Z36.82 Z36.0 Z36.89 [id number] Edil Pichardo MD [facility] [address],[place] [address] 05/19/2020 15:07:48 05/21/2020 03:49:29 [id number] [facility] [address],[place] [address] 05/19/2020 15:08:52 05/19/2020 16:51:21 Routine care 790898937 Z34.92 [id number] Edil Pichardo MD [place] [address],[place] [address] 06/16/2020 11:29:55 06/16/2020 12:43:20 screening for malformation 732258625 Z36.3 [id number] Edil Pichardo MD [facility] [address],[place] [address] 06/16/2020 13:29:39 06/16/2020 14:02:30 Routine care 806483776 Z34.81 [id number] Edil Pichardo MD [place] [facility] [address],[place] [address] 07/21/2020 14:46:41 07/21/2020 15:15:03 Routine care 610606977 Z34.81 [id number] [facility] [address],[place] [address] 08/13/2020 15:58:46 08/14/2020 10:37:00 Routine care 218481792 Z34.92 [id number] Radha Zhang [facility] [address],[place] [address] 08/29/2020 09:35:05 08/29/2020 10:57:02 Routine care 499294310 Z34.93 [id number] Beth Wade [facility] [address],[place] [address] 09/10/2020 15:13:39 09/14/2020 12:27:24 Routine care 736461115 Z34.92 Exposure to lead 1686834 848 2613343 Z77.011 [id number] MD Jamil Castillo [address],[place] [address] 09/10/2020 15:14:46 09/10/2020 16:46:53 Uterine size for dates discrepancy 514269330 O26.843 Z3A.32 [id number] [facility] [address],[place] [address] 09/24/2020 15:13:46 09/24/2020 15:36:30 Routine care 752241106 Z34.92 [id number] MD Jamil Castillo [address],[place] [address] 10/03/2020 12:30:42 10/03/2020 14:12:15 Small for gestational age fetus 878986182 O36.5930 Z3A.35 13166 [facility] [address],[place] [address] 10/07/2020 11:06:30 10/07/2020 11:57:32 Routine care 204582158 Z34.92 [id number] MD Jamil Castillo [address],[place] [address] 10/07/2020 11:07:32 10/07/2020 12:05:57 Small for gestational age fetus 169198034 O36.5930 Z3A.36 [id number] MD Jamil Castillo [address],[place] [address] 10/07/2020 11:07:49 10/07/2020 12:48:28 Small for gestational age fetus 862173260 O36.5999 [id number] [facility] [address],[place] [address] 10/14/2020 09:21:53 10/14/2020 11:02:41 Routine care 470525598 Z34.92 [id number] MD Jamil Castillo [address],[place] [address] 10/14/2020 09:20:38 10/14/2020 18:14:53 Small for gestational age fetus 751566578 O36.5930 Z3A.37 [id number] Edil Pichardo MD [facility] [address],[place] [address] 10/14/2020 09:21:14 10/14/2020 11:23:56 Small for gestational age fetus 413132136 O36.5930 Z3A.37 25506 Edil Pichardo MD [facility] [address],[place] [address] 10/21/2020 13:54:29 10/21/2020 14:49:47 Small for gestational age fetus 331046643 O36.5930 [id number] Edil Pichardo MD [facility] [facility] [address],[place] [address] 10/24/2020 10:06:39 02/23/2021 13:48:00 Small for gestational age fetus 189178947 O36.5999 [id number] Beth Wade [facility] [address],[place] [address] 11/20/2020 14:08:44 11/20/2020 15:07:36 state 36954219 Z39.2 Continue to watch for signs/symp toms [...] paper copy of today's plan if desired [id number] Beth Wade CNM [facility] [address],[place] [address] 06/15/2021 10:44:26 06/16/2021 22:47:06 Mastodynia of left breast 7341255889 3441773 N64.4 1-2 o'clock tenderness . Fibrocysti c. [...] results. Fibrocysti c change of left breast 4661411438 2324872 N60.12 Gynecologi c examination 93517344 Z01.419 Take Calcium with Vitamin D 1200mg [...] paper copy of today's plan if desired. [id number] Edil Pichardo MD [facility] [address],[place] [address] 11/11/2021 14:10:50 11/11/2021 14:45:38 Pain in pelvis 20858295 R10.2 [id number] Edil Pichardo MD [place] [address] [place] [address] 11/25/2021 17:42:54 11/25/2021 18:47:24 Pain in pelvis 39468389 R10.2 [id number] Edil Pichardo MD [place] [address] [place] [address] 11/27/2021 13:50:29 11/27/2021 14:52:30 Pain in pelvis 61739456 R10.2 this patient is a 26-year-ol d [...] decision to perform surgery. Cyst of ovary 88084908 N 83.209 Endometrio sis of pelvis 35274085 N80.3 Dyspareunia 80869964 N94 .10 Fluid in p eritoneal cavity 679145162 R18.8 08958 Edil Pichardo MD [facility] [address] [address] 12/21/2021 15:11:07 12/21/2021 16:08:50 Pain in pelvis 45045176 R10.2 This patient is a 26-year-ol d female with pelvic pain. We have agreed to perform diagnostic laparoscop y. She has a history of endometrio sis. She understand s the risks, benefits, and alternativ es. She has completed the informed consent process and is ready to proceed. [id number] Edil Pichardo MD [facility] [address],[place] [address] 12/31/2021 10:13:53 12/31/2021 10:15:30 [id number] Edil Pichardo MD [place] [address] [address] 01/06/2022 15:19:40 01/06/2022 16:04:12 Postoperative care 540608599 Z48.89 this patient is a 26-year-ol d [...] the pathology report of the operative report. [id number] MD Jamil Castillo [address] [address] 02/10/2022 14:04:03 02/10/2022 14:54:49 Vertigo 858958621 R42 Pain in pelvis 34828715 R10.2 Abnormal u terine bleeding 4310908844 9100 N93.9 Nausea and vomiting 1693 2000 R11.2 Photophobia 084205894 H5 3.149 this patient is a 27-year-ol [...] lb. This may affect her menstrual cycle. 54052 Edil Pichardo MD [facility] [address] [address] 02/17/2022 17:21:05 02/18/2022 14:08:54 Cyst of right ovary 9801633238 5325600 N83.291 [id number] Edil Pichardo MD [facility] [address] [address] 03/03/2022 16:49:50 03/04/2022 10:02:50 Pain in pelvis 24664829 R10.2 Cyst of left ovary 49215 79916 2524521 N83.202 It is a 27-year-ol d female [...] will be laparoscop ic left oophorecto my. [id number] Edil Pichardo MD [facility] [address],[place] [address] 04/01/2022 09:43:54 04/01/2022 12:20:11 [id number] Edil Pichardo MD [facility] [address] [address] 04/07/2022 15:29:37 04/08/2022 14:23:28 Postoperative care 428732657 Z48.89 This patient is a 27-year-ol d [...] if she is trying to get . [id number] Edil Pichardo MD [place] [facility] [address],[facility] [place] [address] 07/08/2022 11:07:44 07/08/2022 12:41:33 Abnormal uterine bleeding 8803593293 9100 N93.9 test positive 804603525 Z32.01 Dyspareunia 98589565 N94 .10 Vaginal discharge 813131 006 N89.8 [id number] Edil Pichardo MD [facility] [address],[place] [address] 07/15/2022 16:27:39 07/15/2022 17:49:34 Pain in pelvis 77458126 R10.2 [id number] Edil Pichardo MD [facility] [address],[place] [address] 07/23/2022 10:29:14 07/23/2022 12:31:59 Abnormal uterine bleeding 9254074861 9100 N93.9 Cyst of ovary 24319767 N 83.209 this patient is a 27-year-ol [...] bleeding and ovarian cysts, and review ultrason. [id number] Edil Pichardo MD [place] [address],[facility] [place] [address] 09/22/2022 10:49:13 09/23/2022 14:09:46 Cyst of right ovary 6005791406 2125402 N83.291 [id number] Edil Pichardo MD [place] [address],[place] [address] 09/23/2022 11:04:35 09/23/2022 13:10:32 Cyst of ovary 66078024 N83.209 Pain in pelvis 89460421 R10.2 Endometrio sis of pelvis 90382252 N80.30 [id number] REX Jones [facility] [address],[place] [address] 12/31/2022 09:58:59 01/03/2023 17:23:11 Unintentional weight loss 824362794 R63.4 Today we reviewed a detailed history. [...] adequate protein intakeEnco uraged to schedule with steam tunnel feeder, appointmen t scheduledC omprehensi ve fasting labs orderedRTC to review labs and discuss next steps Time spent in visit is a total of 40 mins with at least 50% of visit consisting of counseling and review of plan of care. [id number] Edil Pichardo MD [facility] [address],[place] [address] 01/06/2023 12:25:27 01/06/2023 14:20:43 Cyst of right ovary 8321648522 5663845 N83.291 [id number] Edil Pichardo MD [facility] [address],[place] [address] 01/17/2023 11:02:07 01/18/2023 10:03:55 Cyst of ovary 29068754 N83.209 this patient is a 27-year-ol d [...] of her pelvic pain. Pain in pelvis 92680928 R10.2 [id number] REX Jones [facility] [address],[place] [address] 02/04/2023 11:36:54 02/04/2023 14:13:32 Unintentional weight loss 447437321 R63.4 reviewed labs - vitamin D3 supplement s jb has been increasing her protein intake, increase calorie intake, and strength trainingre commend endocrinol ogist referral for additional labs/consu lt for unintentio nal weight lossshe has not met with the steam tunnel feeder yet, she will scheduleco ntinue strength training, protein increaseRT C in 4-6 weeks Time spent in visit is a total of 20 mins with at least 50% of visit consisting of counseling and review of plan of care. [id number] REX Jones [facility] [address],[place] [address] 03/25/2023 10:44:25 03/28/2023 16:56:50 Unintentional weight loss 265042240 R63.4 she has met with the steam tunnel feeder, increasing protein intakeshe has an appointmen t with endocrine scheduled, as well as she is following with PCP on BS logrecomme nd she continue to f/u with steam tunnel feeder, PCP, and endocrine for further evaluation continue strength exercisesP recautions discussedR TC as needed Time spent in visit is a total of 20 mins with at least 50% of visit consisting of counseling and review of plan of care. [id number] Edil Pichardo MD [facility] [address] [address] 05/03/2023 09:21:31 05/03/2023 10:00:32 Pain in pelvis 07912860 R10.2 N83.299 [id number] Edil Pichardo MD [facility] [address] [address] 05/12/2023 14:12:44 05/12/2023 16:39:35 Cyst of ovary 86894394 N83.209 patient is a 28-year-ol d female [...] hysterecto my. She will follow-up as needed. [id number] REX Jones [facility] [address] [address] 11/28/2023 09:58:03 11/28/2023 11:58:51 Amenorrhea 61433323 N91.2 Gynecologi c examination 95120282 Z01.419 WWEpap updateddec lined STI screeningr outine [...] today's plan if desired. Pain of breast 56212162 N64.4 will update bilateral breast u/s - order given to pt History of endometriosis 0536268759 0875142 Z87.42 considerin g TTCoffered JANINE referral given hxcan send in referral if pt decides to pursue this Reproducti ve care management 921397298 Z31.9 [id number] REX Jones [facility] [address] [address] 01/22/2025 16:07:49 01/23/2025 13:37:16 Unintentional weight loss 936640674 R63.4 Labs orderedDis cussed her current caloric intake is below what is recommende d to maintain her current weight or gain weight. Calorie recommenda tions discussed, reviewed adequate protein intake, recommende d steam tunnel feeder consult as well Irregular periods 947934 07 N92.6 labs orderedpel kp u/s orderedRTC to review labs and discuss recommenda tions Time spent in visit is a total of mins with at least 50% of visit consisting of counseling and review of plan of care. Abnormal u terine bleeding 1303906119 9100 N93.9 Screening procedure 2012 5006 Z13.9 [id number] Edil Pichardo MD [facility] [address] [address] 02/05/2025 16:50:46 02/05/2025 17:43:49 Irregular periods 24666491 N92.6 35747 Health Concerns Section Related Observation LastModified by Organization Detai ls LastModified Time None Recorded Concern Status LastModified by Organization Details LastModified Time None Recorded Advance Directives Directive N: Payers Insurance Date Sequence Insurance Name Policy Number Policy Walden Covered Member ID Walden Member ID Guarantor Name 02/14/2025 1 [facility] - DOS ON OR AFTER 21 (MEDICAID REPLACEMENT - HMO) Petty Soriano [id number] Petty Soriano 11/23/[address] [facility] (O) [id number] Joseluis Soriano [id number] Petty Soriano 02/05/2025 1 [place] Petty Soriano [id number] Petty Bo 02/05/2025 [facility] (MEDICAID HMO) Petty Bo [id number] Petty Bo Notes Date Note Type Note [...] observed. we spent more than 20 minutes hyxd-wr-sjgq. More than 50% was counseling. We agreed we could observe the pelvic pain. She has plans to get . She has had multiple surgeries for pelvic pain. Talked about possibly a pelvic pain specialist. At this time her pelvic pain does not seem to be too bad. We talked also about hysterectomy. She will follow-up as needed. Edil Pichardo MD [address], [place], [address], [facility] 05/12/2023 15:51:06 4 text/html Annual GYNReported [...] op note REX Jones [address], [place], [address], [facility] 11/28/2023 11:32:12 5 text/html 29yo [id number] with complaints of irregular periods and weight [...] for BC REX Jones [address], [place], [address], [facility] 01/23/2025 10:33:52 OBGyn Episode Ob Episode Information Episode Created Date Number of Fetuses Patient Bloodtype Patient rh Status Prepregnancy Weight lbs Domestic Partner Domestic Partner Phone Father Name Linux Network Engineer Status 04/15/20 20 1 CLOSED Fetus Data [...] Domestic Partner Domestic Partner Phone Father Name Linux Network Engineer Status 04/15/20 20 1 CLOSED Fetus Data [...] Domestic Partner Domestic Partner Phone Father Name Linux Network Engineer Status 04/15/20 20 1 CLOSED Fetus Data [...] Domestic Partner Domestic Partner Phone Father Name Linux Network Engineer Status 04/28/20 20 1 A Positive 108 CLOSED Fetus Data First Name Last Name Admitted to NICU Weight (g) Sex Living Outcome Pediatric Complications Fetus ID Race Codes Race Delivery Type false 3033.39 65 M true Full Term 2865 Vaginal Delivery Problems Problem Notes Problem Name Start Date End Date Resolution Snomed Code Not e Subchorionic hematoma SELFRESOLVED 44066 4004 Migraine 97343964 neuro cons ult 10/[address] Hoyt Cystic fibrosis 958613823 FRANCIS IER - FOB Joseluis Worth NEG Small for gestational age fetus 639943126 EFW 30% to 8% i n 1 month Oliguria 81306755 2x2 pocket noted Miky Calculation Initial Miky [...] Gestation 0 [email or web address] 04/28/2020 11/02/19 21 0 Pre- Flowsheet Flowsheet Date 04/28/2020 Hill Score Blood Edema Fundus Height Fundus Units Glucose Ketones Leukocytes Nitrite Labor Signs Protein Cervic Dilation Cervic Effacement Cervic Station 12 trace Type Weight in lbs Pre/Post Dialysis Refused Weight 107.680087823354 BP Diastolic BP Location Tested BP Systolic [...] Weight in lbs Pre/Post Dialysis Refused Weight 112.118743595198 BP Diastolic BP Location Tested BP Systolic [...] Weight in lbs Pre/Post Dialysis Refused Weight 117.216201549777 BP Diastolic BP Location Tested BP Systolic BP Type 61 97 Fetus Heart Rate Present A 145 Fetus Movement A Yes Comments Flowsheet Date 07/21/2020 Hill Score Blood Edema Fundus Height Fundus Units Glucose Ketones Leukocytes Nitrite Labor Signs Protein Cervic Dilation Cervic Effacement Cervic Station 25 trace Type Weight in lbs Pre/Post Dialysis Refused Weight 121.094540847140 BP Diastolic BP Location Tested BP Systolic BP Type 67 R arm 108 sitting Fetus Heart Rate Present A 145 Fetus Movement A Yes Comments Flowsheet Date 08/13/2020 Hill Score Blood Edema Fundus Height Fundus Units Glucose Ketones Leukocytes Nitrite Labor Signs Protein Cervic Dilation Cervic Effacement Cervic Station 27 trace Type Weight in lbs Pre/Post Dialysis Refused Weight 126.46843368975 BP Diastolic BP Location Tested BP Systolic [...] Weight in lbs Pre/Post Dialysis Refused Weight 126.72290459935 BP Diastolic BP Location Tested BP Systolic [...] Weight in lbs Pre/Post Dialysis Refused Weight [id number] BP Diastolic BP Location Tested BP Systolic [...] Weight in lbs Pre/Post Dialysis Refused Weight 128.342322021668 BP Diastolic BP Location Tested BP Systolic [...] Weight in lbs Pre/Post Dialysis Refused Weight 129.179425711594 BP Diastolic BP Location Tested BP Systolic [...] Weight in lbs Pre/Post Dialysis Refused Weight 134.927039341671 BP Diastolic BP Location Tested BP Systolic [...] At Estimated Date of Delivery false Thalassemia (Cook Islander, Croatian, Mediterranean, Or Background): MCV < 80 false Neural Tube Defect (Meningom yelocele, Spina Bifida, Or Anencephaly) false Congenital Heart Defect false Down Syndrome false Darren-Sachs (eg, Temple, Cajun, Ethiopian-[place]) f alse Rosalba Disease false Sickle Cell [...]
--- OUTSIDE RECORDS SUMMARY | 2025-08-29 12:15 | XMS_ITS | Clinical Summary ---
Author Organization [facility] Address [address] [place] [id number] Care Team Providers Care Functional Tester Name Role Phone Margie Alford MD Primary Care Provider Unavailab le Allergies Active Allergy Reactions Criticality Noted Date [...] D2, ergocalciferol , (VITAMIN D, ERGOCALCIFEROL ,) 47292 UNITS capsule 1 capsule (1.25 mg total) [...] Sex Assigned at Female 12/10/2024 9:49 AM NURSE PRACTITIONER HOSPITALIST Legal Sex Female 5:12 PM CDT Gender [...] (1 - 3-dose SCD M series) 2022 Cervical Cancer Screening Pa p with HPV Testing (Age 30 to 64) Every 5 Years 2025 COVID-19 Vaccine (1 - 2024-2 6 season) 2025 Influenza Adult (#1) 2025 Cervical Cancer Screening Pa p Smear (Age 30 to 64) Every 3 Years 11/28/2026 11/28/2023, 06/15/2021 Cervical Cancer Screening wi th HPV 11/28/2026 Hepatitis A Vaccines Aged Out No long er eligible based on patient's age to complete this topic Meningococcal B Vaccine Aged Out No l [...] Date Last Indicated MRSA 11/01/2018 11/01/2018 Insurance BLUE CROSS BLUE SHIELD MEDICAID Advance Directives * Full Code (Latest Code Status on File) Date Activated Date Inactivated Comments 09/21/2021 8:44 AM 09/22/2021 4:46 PM Care Teams Functional Tester Relationship Specialty Start Date End Date Margie Alford MD PCP - General FAMILY PRACTICE 11/17/19
--- OUTSIDE RECORDS SUMMARY | 2025-08-29 12:15 | XMS_ITS | Encounter Summary ---
Author Organization [facility] Address [address] [place] [address] Care Team Providers Care Row Boss Hoeing Name Role Phone Margie Alford MD Primary Care Provider Unavailab le Encounter Details Date Type Department Care Team (Late st Contact Info) Description 03/24/2019 Abstract SFL CONVERSION [address] [place] [address] , Generic Conversion, Social History Tobacco Use Types Packs/Day Years Used Date Smoking Tobacco: Never Assessed Comments Unknown Sex and Gender Information Value Date Recorded Sex Assigned at Female 12/10/2024 9:49 AM TOBACCO GROWER Legal Sex Female 5:12 PM CDT Gender Identity Not on file Sexual Orientation Not on file documented as of this encounter Plan of Treatment Not on file documented as of this encounter Visit Diagnoses Not on filedocumented in this encounter Additional Health Concerns Infection Onset Date Last Indicated Resolved Time MRSA 11/01/2018 11/01/2018 COVID-19 Rule Out 09/21/2021 09/21/2021 09/21/2021 3:46 AM TOBACCO GROWER documented as of this encounter Care Teams Row Boss Hoeing Relationship Specialty Start Date End Date Margie Alford MD PCP - General FAMILY PRACTICE 11/17/19 documented as of this encounter
--- OUTSIDE RECORDS SUMMARY | 2025-08-29 12:15 | XMS_ITS | Encounter Summary ---
Author Organization [facility] Address [address] [place] [address] Care Team Providers Care Trolley Collector Name Role Phone Margie Alford MD Primary Care Provider Unavailab le Encounter Details Date Type Department Care Team (Late st Contact Info) Description 09/29/2021 Hospital Orders Only [facility] [address] [place] [address] Kalee Clark RN Social History Tobacco Use Types Packs/Day Years Used Date Smoking Tobacco: Former Smokeless Tobacco: Never Alcohol Use Standard Drinks/Week Comments Never 0 (1 standard drink = 0.6 oz pur e alcohol) Comments No Sex and Gender Information Value Date Recorded Sex Assigned at Female 12/10/2024 9:49 AM SUPERVISOR DIMENSION WAREHOUSE Legal Sex Female 5:12 PM CDT Gender Identity Not on file Sexual Orientation Not on file COVID-19 Exposure Response Date Recorded In the last month, have you been in contact with someone who was confirmed or suspected to have Coronavirus / COVID-19? No / Unsure 10/02/2021 10:34 AM SUPERVISOR [employer]HOUSE documented as of this encounter Functional Status * RETIRED Are you deaf or do you have serious difficulty hearing Answer Date of Assessment Author Status No 09/21/2021 8:23 AM SUPERVISOR [employer]ENSION WAREHOUSE Activ e * RETIRED Are you blind or do you have serious difficulty seeing, even when wearing glasses? Answer Date of Assessment Author Status No 09/21/2021 8:23 AM SUPERVISOR DIMENSION WAREHOUSE Activ e * Do you have serious difficulty walking or climbing stairs? Answer Date of Assessment Author Status No 09/21/2021 8:23 AM SUPERVISOR [employer] W[employer]HOUSE Mere Guardado RN Active * Do you [...] documented as of this encounter Care Teams Trolley Collector Relationship Specialty Start Date End Date Margie Alford MD PCP - General FAMILY PRACTICE 11/17/19 documented as of this encounter
--- NOTE | 2025-08-29 12:36 | ED_ITS ---
HPI - Abdominal Pain General Chief Complaint: Abdominal Pain Stated Complaint: abd pain Time Seen by Provider: 08/29/25 10:37 Source: patient and family Mode of arrival: ambulatory Limitations: no limitations History of Present Illness HPI narrative: This is a 30-year-old female with history of ovarian cyst and presents today with some abdominal pain diffusely located with no fever chills has been having vaginal bleeding with no flank pain no shortness of breath, with some nausea with no vomiting no dysuria or hematuria no chest pain or shortness of breath. MD elicited complaint: abdominal pain Onset (ago): day(s) Pain Consistency: constant Location: diffuse Severity: moderate Pain scale (0-10): 8 Quality: cramping Related Data Home Medications ?Medication ?Instructions ?Recorded ?Confirmed ?Last Taken ?Type omeprazole 40 mg capsule,delayed 40 cap PO QAM 2 09/13/22 Unknown History release progesterone micronized 200 mg 200 mg PO USEASDIRECTD 09/13/22 09/13/22 Unknown History capsule Allergies Allergy/AdvReac Type Severity Reaction Status Date / Time bee venom protein (honey bee) Allergy Severe Swelling Verified 08/29/25 12:43 hornet venom Allergy Severe Swelling Verified 08/29/25 12:43 nitrofurantoin Allergy Severe THROAT Verified 08/29/25 12:43 SWELLING NSAIDS (Non-Steroidal AdvReac Severe PROLONGED/INCREASED Verified 08/29/25 12:43 Anti-Inflamma BLEEDING Review of Systems 2 Review of Systems: All systems reviewed & are unremarkable except as noted in HPI and below PMFSH Past Medical History Medical History Gastroenteritis UTI (urinary tract infection) Depression Hypokalemia Anxiety Endometriosis Surgical History Surgical History S/P laparoscopic procedure Family History Family History Father Cleft palate Mother Depression Grandparent Breast cancer Social History Social History Smoking packs per day: 0.5 Smoking cigarettes per day: 10.0 Years smoked: 5 Smoking pack-years: 2.50 Smoking status: Former smoker Tobacco type: cigarettes Alcohol intake: current Alcohol use details: 1-2/MONTH Substance use: current Substance use type: marijuana Living arrangements: with family Gender identity (if verbalized by the patient): Female Spiritual care concerns: No Exam 2 Const: General: healthy appearing and no acute distress Nutritional Appearance: well nourished and thin Orientation/consciousness: patient oriented x3 Resp: Effort & Inspection: normal respiratory effort Auscultation: clear to auscultation bilaterally Cardio: Rate: regular rate Rhythm: regular rhythm GI: GI Palp: Yes Soft to palpation and Yes Tenderness to palpation present (GI) Auscultation: normal bowel sounds : General: Yes bladder normal to palpation Back/Spine/Pelvis: Back: no CVA tenderness Skin: General skin exam: normal color Rashes: no rashes Wounds: no wounds Neuro: General: patient oriented x3, moves all extremities and no meningeal signs Extrem: General: normal to inspection Course Course Emergency Course: Medical decision making narrative: The patient was evaluated by myself in the emergency department. History obtained from the patient was an independent historian physical exam performed witnessed by a nurse. CT scan of the abdomen was performed with contrast which shows no acute abnormalities White count within normal range patient is afebrile, received IV fluids along with IV Zofran and morphine and after reassessment pain level has markedly improved. Patient with vaginal bleeding and is establishing with a lockstitch pocket setter. Repeat assessment: Patient doing well on repeat exam with no acute distress Symptoms have improved since arrival to the emergency department. Repeat vitals are stable Patient agrees with some discussion after shared medical decision making and agrees with discharge. All questions answered to the patient's satisfaction. Advised follow-up within the next 3 to 5 days further evaluation and treatment. Patient provided with strict return precautions and return to the ED if any worsening symptoms. Vital Signs Vital signs: Vital Signs Temperature 36.6 C 08/29/25 10:35 Pulse Rate 80 08/29/25 10:35 Respiratory Rate 16 08/29/25 10:35 Blood Pressure 114/82 08/29/25 10:35 Pulse Oximetry 100 08/29/25 10:35 Oxygen Delivery Room Air 08/29/25 10:35 Temperature 36.6 C 08/29/25 10:35 Pulse Rate 80 08/29/25 10:35 Respiratory Rate 16 08/29/25 10:35 Blood Pressure 114/82 08/29/25 10:35 Pulse Oximetry 100 08/29/25 10:35 Oxygen Delivery Room Air 08/29/25 10:35 MDM - Abdominal Pain Lab Data 08/29/25 10:52 08/29/25 10:52 Labs: Lab Results 08/29/25 Range/Units 10:52 WBC 5.3 (4.8-10.8) K/mm3 RBC 3.99 L (4.20-5.40) M/mm3 Hgb 12.7 (12.0-15.0) g/dL Hct 37.5 (35.0-49.0) % MCV 94.0 (78.0-102.0) fL MCH 31.8 H (27.0-31.0) pg MCHC 33.9 (32-36) g/dL RDW 11.3 L (11.6-14.4) % Plt Count 230 (150-420) K/mm3 MPV 9.0 L (9.2-11.8) fl Immature Gran % (Auto) 0.2 H (0.0-0.0) % Neut % (Auto) 51.0 (50.0-70.0) % Lymph % (Auto) 40.0 (18.0-42.0) % [place] % (Auto) 6.9 (2.0-11.0) % Eos % (Auto) 1.7 (1.0-6.0) % Baso % (Auto) 0.2 (0.0-1.0) % Lymph # (Auto) 2.10 (1.10-4.50) K/mm3 [place] # (Auto) 0.36 (0.10-0.90) K/mm3 Eos # (Auto) 0.09 (0.02-0.50) K/mm3 Baso # (Auto) 0.01 (0.00-0.10) K/mm3 Abs Immat Gran (auto) 0.01 H (0.00-0.00) K/mm3 Absolute Neuts (auto) 2.68 (1.70-7.20) K/mm3 Absolute Nucleated RBC 0.00 (0.00-0.00) K/mm3 Nucleated RBC % 0.0 (0-0.0) % PT 10.9 (9.50-12.1) Seconds INR 1.0 APTT 28.8 (23.9-30.70) Sec Sodium 142 (137-145) mmol/L Potassium 3.9 (3.4-5.0) mmol/L Chloride 108 H (98-107) mmol/L Carbon Dioxide 22 (22-30) mmol/L Anion Gap 12 (4-12) mmol/L BUN 9 (7-17) mg/dL Creatinine 0.65 L (0.7-1.0) mg/dL Estim Creat Clear Calc 85 ml/min Estimated GFR > 60 (59 - ) Glucose 95 (65-110) mg/dL Calculated Osmolality 292 (285-295) mOsm/kg Lactic Acid 0.7 (0.7-2.0) mmol/L Calcium 9.1 (8.4-10.2) mg/dL Total Bilirubin 1.6 H (0.2-1.3) mg/dL AST 22 (14-36) U/L ALT 13 (6-35) U/L Alkaline Phosphatase 51 (38-126) U/L Total Protein 8.3 H (6.3-8.2) g/dL Albumin 5.3 H (3.5-5.1) g/dL Lipase 81 (23-300) U/L Urine Color Light yellow (Yellow) Urine Appearance Clear (Clear) Urine pH 6.0 (5.0-8.0) Ur Specific [place] 1.010 (1.010-1.020) Urine Protein Negative (Negative) Urine Glucose (UA) Negative (Negative) Urine Ketones Negative (Negative) Ur Blood (Man) 3+ H (Negative) Urine Nitrate Negative (Negative) Urine Bilirubin Negative (Negative) Urine Urobilinogen 0.2 (0.2-1.0) mg/dL Leukocyte Esterase Rfl Negative (Negative) SKYLAR/UL Urine RBC 0-2 (0-2) /hpf Urine WBC 0-3 (0-3) /hpf Ur Squamous Epith Cells Rare (Few) /hpf Urine Bacteria Trace (None) /hpf Urine Test Negative Imaging Data Radiologist's impression: ITS Impressions Abdomen/Pelvis CT 08/29/25 11:37 IMPRESSION: No acute abnormality is seen. Probable normal follicles in the right ovary. Other findings as described. Critical Care Time Critical Care Time Critical Care Time: No Discharge Plan Discharge Clinical Impression: Ovarian cyst Qualifiers: Laterality: right Qualified Code(s): N83.201 - Unspecified ovarian cyst, right side Patient Disposition: Home Condition: Stable Instructions: Antibiotic Form, Ovarian Cyst (ED), Abdominal Pain (ED) Additional Instructions: Advised patient to take medication as prescribed and to follow with lockstitch pocket setter within the next 3 to 5 days further evaluation and treatment. Patient Language: Greenlandic Prescriptions: New ondansetron 4 mg tablet,disintegrating 4 mg PO Q6H PRN (Reason: nausea and vomiting) Qty: 14 0RF oxycodone-acetaminophen [Percocet] 5-325 mg tablet 1 tablet PO Q6H PRN (Reason: pain) Qty: 20 0RF No Action progesterone micronized 200 mg capsule 200 mg PO USEASDIRECTD Rx Instructions: 12x/month ondansetron 4 mg tablet,disintegrating 4 mg PO Q8H Qty: 14 0RF sulfamethoxazole-trimethoprim [Bactrim DS] 800-160 mg tablet 1 tablet PO Q12H Qty: 20 0RF omeprazole 40 mg capsule,delayed release(DR/EC) 40 cap PO QAM Follow-up/Referrals: Mona,MD Blayne [Primary Care Provider, Family Practice] Time of Disposition: 12:43
[2025-08-29 12:48] VITALS: BP 101/76; PULSE 72; RESP 16; TEMP 36.7; O2SAT 100
--- NOTE | 2025-09-01 12:06 | PC.NURSE ---
preliminary blood cultures x2 reviewed. no growth in 24 hours.
--- NOTE | 2025-09-02 12:46 | PC.NURSE ---
PRELIMINARY BLOOD CULTURE NO GROWTH IN 48 HRS
[2025-09-03 13:35] LABS: Bilirubin,Total 0.6 mg/dL (0.2-1.3)
--- NOTE | 2025-09-05 13:18 | PC.NURSE ---
final blood culture results x2: no aerobic or anerobic growth in 5 days.
== END 2025-08-29 12:54 | disposition home or self-care (01) ==
PROVIDERS: Emergency Provider Emergency Medicine; PCP Family Medicine
DX: N83.201 Unspecified ovarian cyst, right side (principal); Z87.891 Personal history of nicotine dependence
CPT/HCPCS: 36415; 74177; 80053; 81001; 81025; 83605; 83690; 85025; 85610; 85730; 87040; 96361; 96374; 96375; 99284; J2270; J2405; J7030; Q9967